=== PATIENT | male | born 1940 | race Caucasian/White ===

== ENCOUNTER → 2016-10-17 | Outpatient (CLI) | payer MEDICARE, OTHER | END | disposition home or self-care (01) | LOC: MW.CHUR 13:00 | PROVIDERS: ATTEND Urology | DX: R35.0 Frequency of micturition (principal); R10.30 Lower abdominal pain, unspecified; Z98.890 Other specified postprocedural states; Z87.19 Personal history of other diseases of the digestive system | CPT/HCPCS: 36415; 81001; 84153; 99203 ==

== ENCOUNTER 2016-11-17 06:36 | Emergency (ER) | payer MEDICARE ==
[2016-11-17 06:47] VITALS: BP 131/67
[2016-11-17] MEDS ORDERED: Ketorolac 60 MG/2 ML SDV IM ONE (07:05)
--- NOTE | 2016-11-17 07:09 | EDM.PDOC ---
ED HPI Trauma - General Chief Complaint: Lower Extremity Injury/Pain Stated Complaint: LEFT KNEE LOCKED UP - History of Present Illness INITIAL COMMENTS - FREE TEXT/NARRATIVE: HISTORY AND PHYSICAL: History of present illness: The patient is a 76-year-old male with a history of A. fib and Coumadin use as well as arthritis who presents with complaints of left knee pain feeling like it 's "locked up". The patient states he had a normal day yesterday but he was painting in his home which required a lot of bending and kneeling but he doesn' t recall a specific injury to the knee. He is a long-standing history of arthritis but it's never been this bad. He doesn't recall twisting the knee or falling on it but he woke with pain and swelling. He feels like he cannot straighten it out. He denies any distal neurosensory changes and has no ankle or foot pain and no proximal hip pain. He has no systemic complaints of fever chills chest pain or shortness of breath Review of systems: As per history of present illness and below otherwise all systems reviewed and negative. Past medical history: As per history of present illness and as reviewed below otherwise noncontributory. Surgical history: As per history of present illness and as reviewed below otherwise noncontributory. Social history: No reported history of drug or alcohol abuse. Family history: As per history of present illness and as reviewed below otherwise noncontributory. Physical exam: General: Well-developed well-nourished male who is nontoxic and speaking clearly and easily. HEENT: Atraumatic, normocephalic, negative for conjunctival pallor or scleral icterus, mucous membranes moist, throat clear, neck supple, nontender, trachea midline. Lungs: Clear to auscultation, breath sounds equal bilaterally, chest nontender. Heart: S1S2, regular rate but irregularly rhythm on my evaluation and no overt murmurs Abdomen: Soft, nondistended, nontender. Negative for masses or hepatosplenomegaly. NABS Pelvis: Stable nontender. Genitourinary: Deferred. Rectal: Deferred. Extremities: Atraumatic except for the left knee where there is a suprapatellar effusion but no palpable bony deformities no warmth. There is diffuse tenderness of the anterior knee and the patient resists extension but is able to do so. There is no distal swelling of the calf or leg and no ankle or foot pain and no proximal thigh or hip pain., negative for cords or calf pain. Neurovascular unremarkable. Neuro: Awake, alert, oriented. Cranial nerves II through XII unremarkable. Cerebellum unremarkable. Motor and sensory unremarkable throughout. Exam nonfocal. Diagnostics: X-ray left knee INR Therapeutics: Toradol RAMÓN and knee immobilizer Patient has his own crutches 0750: Case was discussed with orthopedics dish up person, Dr. Schaffer; in light of the patient's history he advised refraining from doing an arthrocentesis in the ER due to his Coumadin use. He recommended compression dressing, Ramón, knee immobilizer and followup in the clinic. He has seen Dr. Namrata Mayorga in the past and will recommend followup and tramadol for home Impression: Left knee pain with joint effusion and advanced DJD Definitive disposition and diagnosis as appropriate pending reevaluation and review of above. Allergies/ADRs: Allergies Penicillins Allergy (Verified 08/29/16 17:07) Anaphylactic Shock radiographic dye Allergy (Uncoded 08/29/16 17:07) Rash Home Medications: Ambulatory Orders Lisinopril 5 mg PO DAILY 11/23/15 [Confirmed 11/17/16] Nitroglycerin [Nitrostat] 0.4 mg SL ASDIRECTED PRN 11/23/15 [Confirmed 11/17/16] Omeprazole [Prilosec] 40 mg PO DAILY 11/23/15 [Confirmed 11/17/16] atorvaSTATin Calcium [Atorvastatin Calcium] 40 mg PO DAILY 11/23/15 [Confirmed 11/17/16] metFORMIN HCl [Metformin HCl] 500 mg PO BID 11/23/15 [Confirmed 11/17/16] Metoprolol Tartrate [Lopressor] 25 mg PO BID 03/28/16 [Confirmed 11/17/16] Acetaminophen [Tylenol Extra Strength] 500 mg PO DAILY PRN 04/26/16 [Confirmed 11/17/16] Aspirin [Maribel Chewable Aspirin] 81 mg PO DAILY 04/26/16 [Confirmed 11/17/16] Glucosamine/D3/Boswellia Sandi [Osteo Bi-Flex Caplet] 1 each PO DAILY 04/26/16 [ Confirmed 11/17/16] Liraglutide [Victoza] 1.8 mg SUBCUT DAILY 04/26/16 [Confirmed 11/17/16] Warfarin [Coumadin] 7 mg PO DAILY 04/26/16 [Confirmed 11/17/16] Past Medical History HEENT History: Reports: Hard of hearing, Impaired vision Other HEENT History: wears glasses, has upper and lower dentures, wore hearing aides in the past but not currently Cardiovascular History: Reports: Afib, High cholesterol, Hypertension, [place], Stents Respiratory History: Reports: None Gastrointestinal History: Reports: None Genitourinary History: Reports: None Musculoskeletal History: Reports: Arthritis, Fracture Other Musculoskeletal History: hx of fx in back, arthritis in hands and leg,neck Neurological History: Reports: None Psychiatric History: Reports: None Endocrine/Metabolic History: Reports: Diabetes, type II, Obesity/BMI 30+ Hematologic History: Reports: None Immunologic History: Reports: None Oncologic (Cancer) History: Reports: None Dermatologic History: Reports: None - Infectious Disease History Infectious Disease History: Reports: Chicken pox, Measles, Mumps - Past Surgical History Head Surgeries/Procedures: Reports: None Cardiovascular Surgical History: Reports: Coronary artery stent Respiratory Surgical History: Reports: None GI Surgical History: Reports: Appendectomy Male Surgical History: Reports: Vasectomy Endocrine Surgical History: Reports: None Neurological Surgical History: Reports: None Other Musculoskeletal Surgeries/Procedures:: right shoulder pins Oncologic Surgical History: Reports: None Dermatological Surgical History: Reports: None Social & Family History - Family History Family Medical History: Noncontributory - Tobacco Use Smoking Status *Q: Never Smoker Second Hand Smoke Exposure: No - Caffeine Use Caffeine Use: Reports: Coffee - Recreational Drug Use Recreational Drug Use: No Drug Use in Last 12 Months: No Review of Systems - Review of Systems Review Of Systems: ROS reveals no pertinent complaints other than HPI. Trauma Exam - Physical Exam Exam: See Below (See dictation) Course - Vital Signs Last Recorded V/S: Last Vital Signs Temp 37.1 C 11/17/16 06:41 Pulse 97 11/17/16 06:41 Resp 16 11/17/16 06:41 BP 131/67 11/17/16 06:41 Pulse Ox 94 L 11/17/16 06:41 - Orders/Labs/Meds Orders: Active Orders 24 hr Category Date Time Status Knee 3V Lt [CR] Stat Exams 11/17/16 06:51 Taken Labs: Laboratory Tests 11/17/16 Range/Units 07:30 INR 1.42 H (0.86-1.11) Meds: Medications Discontinued Medications Generic Name Dose Route Start Last Admin Trade Name Henna PRN Reason Stop Dose Admin Ketorolac Tromethamine 60 mg 11/17/16 07:05 11/17/16 07:21 Toradol IM 11/17/16 07:06 60 mg ONETIME ONE Administration Departure - Departure Time of Disposition: 07:56 Disposition: Home, Self-Care 01 Condition: good Clinical Impression: Joint effusion of knee DJD (degenerative joint disease) of knee Qualifiers: Osteoarthritis type: unspecified Laterality: left Qualified Code(s): M17.12 - Unilateral primary osteoarthritis, left knee Forms: ED Department Discharge Additional Instructions: The following information is given to patients seen in the emergency department who are being discharged to home. This information is to outline your options for follow-up care. We provide all patients seen in our emergency department with a follow-up referral. The need for follow-up, as well as the timing and circumstances, are variable depending upon the specifics of your emergency department visit. If you don't have a primary care physician on staff, we will provide you with a referral. We always advise you to contact your personal physician following an emergency department visit to inform them of the circumstance of the visit and for follow-up with them and/or the need for any referrals to a consulting specialist. The emergency department will also refer you to a specialist when appropriate. This referral assures that you have the opportunity for followup care with a specialist. All of these measure are taken in an effort to provide you with optimal care, which includes your followup. Under all circumstances we always encourage you to contact your private physician who remains a resource for coordinating your care. When calling for followup care, please make the office aware that this follow-up is from your recent emergency room visit. If for any reason you are refused follow-up, please contact the [facility] emergency department at and ask to speak to the emergency department charge nurse. [address] [place], [place] [id number] [facility]--Orthopedic clinic Professional Building [address] [place] [id number] Use RAMÓN at all times remove at night. His immobilizer and crutches when moving around. Elevate and place ice on the knee. Use [id number] pain medications or the tramadol you have been prescribed. Return to ER as needed and as discussed in please call and followup with our orthopedics Department. - My Orders Last 24 Hours: My Active Orders 11/17/16 06:51 Knee 3V Lt [CR] Stat - Assessment/Plan Last 24 Hours: My Active Orders 11/17/16 06:51 Knee 3V Lt [CR] Stat
--- NOTE | 2016-11-18 16:46 | CR ---
EXAM DATE: 11/17/16 PATIENT'S AGE: 76 Patient: WILFRED HARTMAN Facility: [place], [place] Site . Site : 1940 Study: XRay Knee Left [id number]/26/2017 7:19:32 AM Ordering Physician: Timoteo Bray Final Report: INDICATION: PAIN, HX OF ARTHRITIS, DENIES RECENT TRAUMA INDICATION: Left knee pain. TECHNIQUE: Three view. FINDINGS: Moderate to advanced degenerative change of the 3 compartments of the left knee are identified. No acute fracture is seen. There is a [id number] joint effusion in the suprapatellar space. Vascular calcifications are noted. IMPRESSION: Moderate advanced degenerative change of the left knee. No acute fracture is seen. Joint effusion is noted. Dictated by Rich Bowens MD @ 11/17/2016 7:35:39 AM Dictated by: Rich Bowens MD @ 11/17/2016 07:35:44 (Electronic Signature) Report Signed by Proxy and Original Signed Document filed in the Medical Record. [facility]
== END 2016-11-17 08:12 | disposition home or self-care (01) ==
LOC: MW.ED 06:36
DX: M25.462 Effusion, left knee (principal); M17.12 Unilateral primary osteoarthritis, left knee; I25.2 Old myocardial infarction; I48.91 Unspecified atrial fibrillation; I10 Essential (primary) hypertension; E78.00 Pure hypercholesterolemia, unspecified; E11.9 Type 2 diabetes mellitus without complications; E66.9 Obesity, unspecified; Z68.31 Body mass index [BMI] 31.0-31.9, adult; Z95.5 Presence of coronary angioplasty implant and graft; Z98.52 Vasectomy status; Z90.49 Acquired absence of other specified parts of digestive tract; Z79.82 Long term (current) use of aspirin; Z79.01 Long term (current) use of anticoagulants; Z79.899 Other long term (current) drug therapy; Z88.0 Allergy status to penicillin; Z91.041 Radiographic dye allergy status
CPT/HCPCS: 36415; 73562; 85610; 96372; 99283; J1885

== ENCOUNTER → 2016-11-20 | Outpatient (CLI) | payer MEDICARE | LOC: MW.CHUR 08:00 | DX: S76.211A Strain of adductor muscle, fascia and tendon of right thigh, initial encounter (principal) | CPT/HCPCS: G0463 ==

== ENCOUNTER → 2016-12-03 | Outpatient (CLI) | payer MEDICARE | LOC: MW.CHORTHO 08:00 | PROVIDERS: ATTEND Orthopaedic Surgery | DX: M17.12 Unilateral primary osteoarthritis, left knee (principal) | CPT/HCPCS: 99214 ==

== ENCOUNTER → 2017-01-07 | Outpatient (CLI) | payer MEDICARE | LOC: MW.CHORTHO 08:00 | PROVIDERS: ATTEND Physician Assistant | DX: M17.12 Unilateral primary osteoarthritis, left knee (principal) ==

== ENCOUNTER → 2017-01-15 | Outpatient (CLI) | payer MEDICARE | LOC: MW.CHORTHO 08:00 | PROVIDERS: ATTEND Orthopaedic Surgery | DX: M17.12 Unilateral primary osteoarthritis, left knee (principal) | CPT/HCPCS: G0463 ==

== ENCOUNTER → 2017-01-17 | Outpatient (CLI) | payer MEDICARE ==
--- NOTE | 2017-01-20 10:31 | US ---
EXAMINATION: LEOBARDO HISTORY: Osteoarthritis COMPARISON: None TECHNIQUE: Pressures obtained in the upper and lower extremities bilaterally. FINDINGS/IMPRESSION: The left LEOBARDO is normal and greater than 1. The right LEOBARDO is normal and greater than 1.
== END ==
LOC: MW.US 13:44
PROVIDERS: ATTEND Orthopaedic Surgery
DX: M17.12 Unilateral primary osteoarthritis, left knee (principal)
CPT/HCPCS: 93922; 93922-26

== ENCOUNTER 2017-02-10 07:57 | Inpatient (IN) | payer MEDICARE ==
[2017-02-10] MEDS: Lactated Ringers 1,000 ML IV SCH ×2 (07:35→17:50)
[~2017-02-10 07:57] MED LIST: Acetaminophen 500 MG Tab PO SCH; Clindamycin Phosphate in D5W 900 MG in Premix Bag 1 BAG IV SCH; Famotidine 20 MG/2 ML SDV IVPUSH SCH; Ropivacaine 49.25 ML, EPINEPHrine 0.5 MG, cloNIDine 80 MCG in Sodium Chloride 0.9% 48.4... INJECT ONE; Ropivacaine 49.25 ML, Ketorolac 30 MG, EPINEPHrine 0.5 MG, cloNIDine 80 MCG in Sodium C... INJECT ONE; Scopolamine 1.5 MG Transdermal Patch TRDERM SCH
[2017-02-10] MEDS ORDERED: Lidocaine 2% 5 ML SDV ONE (08:31)
[2017-02-10] MEDS ORDERED: Ondansetron 4 MG/2 ML SDV ONE (08:32)
[2017-02-10] MEDS ORDERED: Propofol 200 MG/20 ML SDV ONE ×2 (08:32→12:00)
[2017-02-10] MEDS ORDERED: fentaNYL 100 MCG/2 ML SDV ONE ×2 (08:32→11:33)
[2017-02-10] MEDS ORDERED: Midazolam 1 MG/ML 2 ML SDV ONE (08:32)
--- NOTE | 2017-02-10 10:00 | PCM.PREANE ---
Preanesthetic Assessment - Anesthesia/Transfusion/Family Hx Anesthesia History: Prior Anesthesia Without Reaction Family History of Anesthesia Reaction: No Transfusion History: No Prior Transfusion(s) - Review of Systems General: No Symptoms Pulmonary: No Symptoms Cardiovascular: No Symptoms Gastrointestinal: No symptoms Neurological: No Symptoms Other: Reports: None - Physical Assessment NPO Status Date: 02/09/17 (except sips of CL with meds this am) O2 Sat by Pulse Oximetry: 98 Respiratory Rate: 16 Vital Signs: Last Vital Signs Temp 36.7 C 02/10/17 08:15 Pulse 79 02/10/17 08:15 Resp 16 02/10/17 08:15 BP 134/78 02/10/17 08:15 Pulse Ox 98 02/10/17 08:15 Height: 1.7 m Weight: 89.811 kg ASA Class: 3 Airway Class: Mallampati = 2 Dentition: Reports: Dentures (full dentures top and bottom) ROM/Head Extension: Full Lungs: Clear to auscultation, Normal respiratory effort Cardiovascular: Regular Rate - Lab Values: Laboratory Last Values INR 1.06 (0.86-1.11) 02/10/17 08:48 Blood Type A POSITIVE 02/10/17 08:48 Antibody Screen NEGATIVE 02/10/17 08:48 Cold Antibody Screen POSITIVE 02/10/17 08:48 - Allergies Allergies/Adverse Reactions: Allergies Allergy/AdvReac Type Severity Reaction Status Date / Time Penicillins Allergy Anaphylactic Verified 08/29/16 17:07 Shock radiographic dye Allergy Rash Uncoded 08/29/16 17:07 - Blood Blood Available: Yes - Anesthesia Plan Pre-Op Medication Ordered: Other (iv tylenol and trans demp scop and po pepcid given in pre op holding per surgeons orders) Beta Masha: Metoprolol (last dose of metopralol was 02/09) Med Last Dose Date: 02/10/17 (took lisinopril this am) - Acknowledgements Anesthesia Type Planned: General Anesthesia, Spinal Pt an Appropriate Candidate for the Planned Anesthesia: Yes Alternatives and Risks of Anesthesia Discussed w Pt/Guardian: Yes Pt/Guardian Understands and Agrees with Anesthesia Plan: Yes Additional Comments: has stent and has had CABG, heart cath in 2017 showed patent vein grafts and patent stent. PreAnesthesia Questionnaire HEENT History: Reports: Hard of Hearing, Impaired Vision Other HEENT History: wears glasses, has upper and lower dentures, wore hearing aides in the past but not currently Cardiovascular History: Reports: Afib, High Cholesterol, Hypertension, [place], Stents Respiratory History: Reports: None Gastrointestinal History: Reports: None Genitourinary History: Reports: None Musculoskeletal History: Reports: Arthritis, Fracture Other Musculoskeletal History: hx of fx in back, arthritis in hands Neurological History: Reports: None Psychiatric History: Reports: None Endocrine/Metabolic History: Reports: Diabetes, Type II, Obesity/BMI 30+ Hematologic History: Reports: None Immunologic History: Reports: None Oncologic (Cancer) History: Reports: None Dermatologic History: Reports: None - Infectious Disease History Infectious Disease History: Reports: Chicken Pox, Measles, Mumps - Past Surgical History Head Surgeries/Procedures: Reports: None HEENT Surgical History: Reports: None, Cataract Surgery Cardiovascular Surgical History: Reports: Coronary Artery Stent Respiratory Surgical History: Reports: None GI Surgical History: Reports: Appendectomy Male Surgical History: Reports: Vasectomy Endocrine Surgical History: Reports: None Neurological Surgical History: Reports: None Musculoskeletal Surgical History: Reports: Shoulder Surgery Other Musculoskeletal Surgeries/Procedures:: right shoulder RTCR Oncologic Surgical History: Reports: None Dermatological Surgical History: Reports: None - SUBSTANCE USE Smoking Status *Q: Never Smoker Tobacco Use Within Last Twelve Months: No Second Hand Smoke Exposure: No Recreational Drug Use History: No - HOME MEDS Home Medications: Home Meds Lisinopril 5 mg PO DAILY 11/23/15 [History] Nitroglycerin [Nitrostat] 0.4 mg SL ASDIRECTED PRN 11/23/15 [History] Omeprazole [Prilosec] 20 mg PO BID PRN 11/23/15 [History] atorvaSTATin Calcium [Atorvastatin Calcium] 40 mg PO DAILY 11/23/15 [History] metFORMIN HCl [Metformin HCl] 500 mg PO BID 11/23/15 [History] Metoprolol Tartrate [Lopressor] 25 mg PO BID 03/28/16 [History] Acetaminophen [Tylenol Extra Strength] 500 mg PO TID PRN 04/26/16 [History] Aspirin [Maribel Chewable Aspirin] 81 mg PO DAILY 04/26/16 [History] Glucosamine/D3/Boswellia Sandi [Osteo Bi-Flex Caplet] 1 each PO DAILY 04/26/16 [ History] Liraglutide [Victoza] 1.8 mg SUBCUT DAILY 04/26/16 [History] Warfarin [Coumadin] 7 mg PO DAILY 04/26/16 [History] - CURRENT (IN HOUSE) MEDS Current Meds: Current Medications Acetaminophen (Tylenol Extra Strength) 1,000 mg PO ONARRIVE [facility] Last Admin: 02/10/17 07:34 Dose: 1,000 mg Famotidine (Pepcid) 40 mg IVPUSH ONARRIVE [facility] Last Admin: 02/10/17 07:34 Dose: 40 mg Clindamycin Phosphate 900 mg/ (Premix) 50 mls @ 100 mls/hr IV ONCALL [facility] Last Admin: 02/10/17 07:35 Dose: 100 mls/hr Lactated Ringer's (Ringers, Lactated) 1,000 mls @ 100 mls/hr IV ASDIRECTED [facility] Last Admin: 02/10/17 07:35 Dose: 100 mls/hr Scopolamine (Transderm-Scop) 1.5 mg TRDERM ONARRIVE [facility] Last Admin: 02/10/17 07:34 Dose: 1.5 mg Tranexamic Acid (Cyklokapron) 4,000 mg IV SEECOMMENT [facility] Discontinued Medications Fentanyl (Sublimaze) Confirm Administered Dose 100 mcg .ROUTE .STK-MED ONE Stop: 02/10/17 08:33 Ropivacaine 49.25 ml/Epinephrine HCl 0.5 mg/Clonidine HCl 80 mcg/ Sodium Chloride 99 mls @ 50 mls/min INJECT ONETIME ONE Stop: 02/10/17 06:01 Ropivacaine 49.25 ml/Ketorolac Tromethamine 30 mg/Epinephrine HCl 0.5 mg/ Clonidine HCl 80 mcg/ Sodium Chloride 100 mls @ 50 mls/min INJECT ONETIME ONE Stop: 02/10/17 06:01 Lidocaine (Xylocaine-Mpf 2%) Confirm Administered Dose 5 ml .ROUTE .STK-MED ONE Stop: 02/10/17 08:32 Midazolam HCl (Versed 1 Mg/Ml) Confirm Administered Dose 2 mg .ROUTE .STK-MED ONE Stop: 02/10/17 08:33 Ondansetron HCl (Zofran) Confirm Administered Dose 4 mg .ROUTE .STK-MED ONE Stop: 02/10/17 08:33 Propofol (Diprivan 20 Ml) Confirm Administered Dose 600 mg .ROUTE .STK-MED ONE Stop: 02/10/17 08:33 Tranexamic Acid (Cyklokapron) Confirm Administered Dose 4,000 mg .ROUTE .[facility]- MED ONE Stop: 02/10/17 07:31
[2017-02-10] MEDS ORDERED: Phenylephrine/Normal Saline 100 MCG/ML 10 ML Syringe ONE (11:45)
[2017-02-10] MEDS ORDERED: diphenhydrAMINE 25 MG Cap PO PRN (12:09)
[2017-02-10] MEDS ORDERED: Bisacodyl 10 MG Supp RECTAL PRN (12:09)
[2017-02-10] MEDS ORDERED: Clindamycin Phosphate in D5W 900 MG in Premix Bag 1 BAG IV SCH ×4 (12:15→19:00)
[2017-02-10] MEDS ORDERED: HYDROmorphone 1 MG/ML Syringe IVPUSH PRN (12:19)
--- NOTE | 2017-02-10 12:26 | PCM.OPNOTE ---
- General Post-Op/Procedure Note Date of Surgery/Procedure: 02/10/17 Operative Procedure(s): L TKA Post-Op Diagnosis: L knee DJD Anesthesia Technique: General LMA, Spinal Primary Surgeon: Namrata Mayorga Records Management Coordinator: Sly Arciniega Records Management Coordinator: Allison Nguyen in mLs: 50 Condition: Good Free Text/Narrative:: tt=61 min #[id number] Intake & Output 02/09/17 02/10/17 02/10/17 22:59 06:59 14:59 Output Total 650 Balance -650
--- NOTE | 2017-02-10 13:07 | PCM.POSTAN ---
POST ANESTHESIA ASSESSMENT - MENTAL STATUS Mental Status: alert, oriented - RESPIRATORY Respiratory Status: respiratory rate WNL, airway patent, O2 saturation stable, supplemental oxygen (nasal canula) - CARDIOVASCULAR CV Status: pulse rate WNL, blood pressure stable - GASTROINTESTINAL GI Status: no symptoms - PAIN Pain Score: 0 - POST OP HYDRATION Hydration Status: adequate & stable
--- NOTE | 2017-02-10 14:23 | PCM.CONS ---
H&P History of Present Illness - General Date of Service: 02/10/17 Admit Problem/Dx: Admission Diagnosis/Problem Admission Diagnosis/Problem Replacement of total knee joint Source of Information: Patient, Old Records History Limitations: Reports: No Limitations - History of Present Illness Initial Comments - Free Text/Narative: This 76 year old male with pmh of CAD with KS and stenting in 2008, afib with anticoagulation Coumadin, DM type 2 presented today for elective L TKA with Dr. Mayorga. Hospitalist service consulted for medical management of comorbidities. He was cleared by Cardiology, Dr Chowdhury, and PCP, Dr. Pandey for surgery. Lexiscan performed with Dr. Chowdhury showed estimated EF of 50% and moderate sized inferior defect, mostly fixed. heart cath completed 01/07/2017 showed no evidence for any significant stenosis in main coronary arteries and he was cleared for surgery. He returned from PACU this afternoon, feeling well. He denies any chest pain or SOB. "I just want to be able to move my legs." Reports feeling coming back slowly. Has no concerns at this time. PCP. Dr. Pandey. - Related Data Allergies/Adverse Reactions: Allergies Allergy/AdvReac Type Severity Reaction Status Date / Time Penicillins Allergy Anaphylactic Verified 08/29/16 17:07 Shock radiographic dye Allergy Rash Uncoded 08/29/16 17:07 Home Medications: Home Meds Lisinopril 5 mg PO DAILY 11/23/15 [History] Nitroglycerin [Nitrostat] 0.4 mg SL ASDIRECTED PRN 11/23/15 [History] Omeprazole [Prilosec] 20 mg PO BID 11/23/15 [History] atorvaSTATin Calcium [Atorvastatin Calcium] 40 mg PO DAILY 11/23/15 [History] metFORMIN HCl [Metformin HCl] 500 mg PO BID 11/23/15 [History] Metoprolol Tartrate [Lopressor] 25 mg PO BID 03/28/16 [History] Acetaminophen [Tylenol Extra Strength] 500 mg PO TID PRN 04/26/16 [History] Aspirin [Maribel Chewable Aspirin] 81 mg PO DAILY 04/26/16 [History] Glucosamine/D3/[place]oswellia Sandi [Osteo Bi-Flex Caplet] 1 each PO DAILY 04/26/16 [ History] Liraglutide [Victoza] 1.8 mg SUBCUT DAILY 04/26/16 [History] Warfarin [Coumadin] 7.5 mg PO DAILY 04/26/16 [History] Past Medical History HEENT History: Reports: Hard of Hearing, Impaired Vision Other HEENT History: wears glasses, has upper and lower dentures Cardiovascular History: Reports: Afib, CAD, High Cholesterol, Hypertension, KS, Stents. Denies: Blood Clots/VTE/DVT Respiratory History: Reports: None. Denies: COPD, PE Gastrointestinal History: Reports: None. Denies: GERD, GI Bleed Genitourinary History: Reports: None. Denies: Acute Renal Failure, Chronic Renal Insuffiency Musculoskeletal History: Reports: Arthritis, Fracture Other Musculoskeletal History: hx of fx in back Neurological History: Reports: None. Denies: CVA, MS, TIA Psychiatric History: Reports: None Endocrine/Metabolic History: Reports: Diabetes, Type II, Obesity/BMI 30+. Denies: Hypothyroidism Hematologic History: Reports: None Immunologic History: Reports: None Oncologic (Cancer) History: Reports: None Dermatologic History: Reports: Cellulitis - Infectious Disease History Infectious Disease History: Reports: Chicken Pox, Measles, Mumps - Past Surgical History Head Surgeries/Procedures: Reports: None HEENT Surgical History: Reports: None, Cataract Surgery Cardiovascular Surgical History: Reports: Coronary Artery Stent Respiratory Surgical History: Reports: None GI Surgical History: Reports: Appendectomy Male Surgical History: Reports: Vasectomy Endocrine Surgical History: Reports: None Neurological Surgical History: Reports: None Musculoskeletal Surgical History: Reports: Shoulder Surgery Other Musculoskeletal Surgeries/Procedures:: right shoulder RTCR Oncologic Surgical History: Reports: None Dermatological Surgical History: Reports: None Social & Family History - Family History Family Medical History: Noncontributory - Tobacco Use Smoking Status *Q: Former Smoker Second Hand Smoke Exposure: No - Caffeine Use Caffeine Use: Reports: Coffee - Alcohol Use Alcohol Use History: No - Recreational Drug Use Recreational Drug Use: No Drug Use in Last 12 Months: No - Living Situation & Occupation Living situation: Reports: Occupation: Employed Social History Comment: Does a lot of caretaking for , who suffered from a CVA a few years ago. H&P Review of Systems - Review of Systems: Review Of Systems: See Below General: Reports: No Symptoms. Denies: Fever, Chills, Malaise, Weakness HEENT: Reports: No Symptoms. Denies: Post Nasal Drip, Sinus Congestion Pulmonary: Reports: No Symptoms. Denies: Shortness of Breath, Wheezing, Cough, Sputum Cardiovascular: Reports: No Symptoms. Denies: Chest Pain, Palpitations, Dyspnea on Exertion, Orthopnea, Edema Gastrointestinal: Reports: No Symptoms. Denies: Abdominal Pain, Black Stool, Bloody Stool, Nausea, Vomiting Genitourinary: Reports: No Symptoms. Denies: Dysuria, Frequency, Burning Musculoskeletal: Reports: No Symptoms Skin: Reports: No Symptoms Psychiatric: Reports: No Symptoms Neurological: Reports: No Symptoms. Denies: Confusion, Dizziness, Headache Hematologic/Lymphatic: Reports: No Symptoms Immunologic: Reports: No Symptoms Exam - Exam Exam: See Below - Vital Signs Vital Signs: Last Vital Signs Temp 97.4 F 02/10/17 13:20 Pulse 75 02/10/17 13:35 Resp 16 02/10/17 13:35 BP 99/60 02/10/17 13:35 Pulse Ox 96 02/10/17 13:35 Weight: 89.811 kg - Exam Quality Assessment: Supplemental Oxygen General: Alert, Oriented, Cooperative HEENT: Conjunctiva Clear, EACs Clear, EOMI, Hearing Intact, Mucosa Moist & [place] , Nares Patent, Posterior Pharynx Clear, Pupils Reactive Neck: Supple, Trachea Midline, 2 Lungs: Clear to Auscultation, Normal Respiratory Effort Cardiovascular: Regular Rate, Regular Rhythm, Normal S1, Normal S2 Abdomen: Normal Bowel Sounds, Soft. No: Distention, Tenderness Extremities: Normal Inspection, Normal Pulses Skin: Warm, Dry, Intact, Incision (C/D/I) Neuro Extensive - Mental Status: Alert, Oriented x3, Normal Mood/Affect, Normal Cognition Neuro Extensive - Motor, Sensory, Reflexes: CN II-XII Intact Psychiatric: Alert, Normal Affect, Normal Mood - Patient Data Lab Results last 24 hrs: Laboratory Results - last 24 hr 02/10/17 02/10/17 02/10/17 Range/Units 08:48 08:48 13:56 WBC 8.05 (4.0-11.0) K/uL RBC 3.62 L (4.50-5.90) M/uL Hgb 10.9 L (13.0-17.0) g/dL Hct 33.1 L (38.0-50.0) % MCV 91.4 (80.0-98.0) fL MCH 30.1 (27.0-32.0) pg MCHC 32.9 (31.0-37.0) g/dL RDW Std Deviation 48.1 (28.0-62.0) fl RDW Coeff of Natalie 14 (11.0-15.0) % Plt Count 224 (150-400) K/uL MPV 9.00 (7.40-12.00) fL Neut % (Auto) 66.7 (48.0-80.0) % Lymph % (Auto) 18.6 (16.0-40.0) % [place] % (Auto) 12.4 (0.0-15.0) % Eos % (Auto) 1.9 (0.0-7.0) % Baso % (Auto) 0.4 (0.0-1.5) % Neut # (Auto) 5.4 (1.4-5.7) K/uL Lymph # (Auto) 1.5 (0.6-2.4) K/uL [place] # (Auto) 1.0 H (0.0-0.8) K/uL Eos # (Auto) 0.2 (0.0-0.7) K/uL Baso # (Auto) 0.0 (0.0-0.1) K/uL Nucleated RBC % 0.0 /100WBC Nucleated RBCs # 0 K/uL INR 1.06 (0.86-1.11) Blood Type A POSITIVE Antibody Screen NEGATIVE Cold Antibody Screen POSITIVE Result Diagrams: 02/10/17 13:56 02/10/17 13:56 Consult PN Assessment/Plan Procedures: Procedures ASSAY OF CREATININE (04/18/16) ASSAY OF LACTIC ACID (04/26/16) ASSAY OF MAGNESIUM (03/28/16) ASSAY OF PSA TOTAL (10/17/16) ASSAY OF TROPONIN QUANT (07/16/16) ASSAY OF UREA NITROGEN (04/18/16) ASSAY OF VANCOMYCIN (04/26/16) BLOOD CULTURE FOR BACTERIA (04/26/16) C-REACTIVE PROTEIN (04/26/16) CHEST X-RAY 1 VIEW FRONTAL (07/16/16) COMPLETE CBC W/AUTO DIFF WBC (07/16/16) COMPREHEN METABOLIC PANEL (07/16/16) CREATINE MB FRACTION (03/28/16) CT HEAD/BRAIN W/O DYE (07/16/16) CT NECK SPINE W/O DYE (07/16/16) CT THORAX W/DYE (04/16/16) CULTR BACTERIA EXCEPT BLOOD (04/26/16) CULTURE AEROBIC IDENTIFY (04/26/16) CULTURE OTHR SPECIMN AEROBIC (04/26/16) DRAIN/INJ JOINT/BURSA W/O US (11/18/16) ELECTROCARDIOGRAM TRACING (07/16/16) EMERGENCY DEPT VISIT (11/17/16) EMERGENCY DEPT VISIT (07/16/16) EMERGENCY DEPT VISIT (04/26/16) EMERGENCY DEPT VISIT (03/28/16) GLUCOSE BLOOD TEST (04/26/16) IMMUNIZATION ADMIN (04/26/16) METABOLIC PANEL TOTAL CA (04/26/16) MICROBE SUSCEPTIBLE HEAVEN (04/26/16) N BLOCK INJ ILIO-ING/HYPOGI (09/03/16) OFFICE/OUTPATIENT VISIT EST (04/10/16) OFFICE/OUTPATIENT VISIT NEW (10/17/16) OFFICE/OUTPATIENT VISIT NEW (10/19/15) PROTHROMBIN TIME (11/17/16) PRP I/THERESA INIT REDUC >5 YR (11/27/15) RBC SED RATE AUTOMATED (04/26/16) ROUTINE VENIPUNCTURE (11/17/16) SMEAR GRAM STAIN (04/26/16) TDAP VACCINE 7 YRS/> IM (04/26/16) THER/PROPH/DIAG INJ IV PUSH (07/16/16) THER/PROPH/DIAG INJ SC/IM (11/17/16) THER/PROPH/DIAG IV INF INIT (04/26/16) TX/PRO/DX INJ NEW DRUG ADDON (07/16/16) UPR/L XTREMITY ART 2 LEVELS (01/17/17) URINALYSIS AUTO W/SCOPE (10/17/16) US EXAM SCROTUM (08/29/16) VASCULAR STUDY (08/29/16) X-RAY EXAM KNEE 4 OR MORE (11/18/16) X-RAY EXAM OF ELBOW (04/26/16) X-RAY EXAM OF KNEE 3 (11/17/16) X-RAY EXAM OF SHOULDER (07/16/16) (1) S/P total knee arthroplasty SNOMED Code(s): 6127282998462, 715321617, 1671749711822 Code(s): Z96.659 - PRESENCE OF UNSPECIFIED ARTIFICIAL KNEE JOINT Current Visit: Yes Qualifiers: Laterality: left Qualified Code(s): Z96.652 - Presence of left artificial knee joint (2) A-fib SNOMED Code(s): 34333915 Code(s): I48.91 - UNSPECIFIED ATRIAL FIBRILLATION Current Visit: No Qualifiers: Atrial fibrillation type: chronic Qualified Code(s): I48.2 - Chronic atrial fibrillation (3) CAD (coronary artery disease) SNOMED Code(s): 24274021 Code(s): I25.10 - ATHSCL HEART DISEASE OF [place] CORONARY ARTERY W/O ANG PCTRS Current Visit: No Qualifiers: Coronary Disease-Associated Artery/Lesion type: [place] artery [place] vs. transplanted heart: ramona heart Associated angina: without angina Qualified Code(s): I25.10 - Atherosclerotic heart disease of [place] coronary artery without angina pectoris (4) Chronic anticoagulation SNOMED Code(s): 594059976 Code(s): Z79.01 - SKIDDER (CURRENT) USE OF ANTICOAGULANTS Current Visit: No (5) Diabetes type 2, controlled SNOMED Code(s): 31124550 Code(s): E11.9 - TYPE 2 DIABETES MELLITUS WITHOUT COMPLICATIONS Current Visit: No Qualifiers: Diabetes mellitus complication status: without complication Diabetes mellitus penitentiary insulin use: without long term care pharmacist use Qualified Code(s): E11.9 - Type 2 diabetes mellitus without complications Problem List Initiated/Reviewed/Updated: Yes My Orders last 24 hours: My Active Orders 02/10/17 13:43 COMPREHENSIVE METABOLIC PN,CMP [CHEM] Routine MG [MAGNESIUM] [CHEM] Routine 02/10/17 13:47 Blood Glucose Check, Bedside [RC] TIDAC 02/10/17 17:00 Insulin Aspart [NovoLOG] See Protocol SUBCUT TIDAC 02/10/17 21:00 Metoprolol Tartrate [Lopressor] 25 mg PO BID 02/11/17 05:00 BASIC METABOLIC PANEL,BMP [CHEM] DAILY CBC WITH AUTO DIFF [HEME] DAILY INR,PT,PROTHROMBIN TIME [COAG] DAILY MAGNESIUM [CHEM] DAILY 02/11/17 09:00 Aspirin 81 mg PO DAILY Liraglutide 1.8 mg SUBCUT DAILY Lisinopril [Prinivil] 5 mg PO DAILY atorvaSTATin [Lipitor] 40 mg PO DAILY 02/11/17 14:00 Warfarin [Coumadin] 7 mg PO DAILY@1400 02/12/17 05:00 BASIC METABOLIC PANEL,BMP [CHEM] DAILY CBC WITH AUTO DIFF [HEME] DAILY MAGNESIUM [CHEM] DAILY 02/13/17 05:00 BASIC METABOLIC PANEL,BMP [CHEM] DAILY CBC WITH AUTO DIFF [HEME] DAILY MAGNESIUM [CHEM] DAILY Plan: This 76 year old male admitted with L TKA, Hospitalist service consulted for medical management. 1. S/P L TKA: Doing well, orders per Ortho. 2. Afib: Continue Metoprolol. Restart Coumadin tomorrow. Monitor INR and electrolytes. Hypomagnesemia noted, replaced with 4 gm IV this afternoon. 3. DM type 2: Hold Metformin. Novolog SSI TIDAC. Continue Victoza. 4. CAD: Continue ASA, Atorvastatin, and Lisinopril. VTE prophylaxis: Do recommended restarting Coumadin in am or when deemed appropriate per Ortho.
[2017-02-10 14:28] LABS: CHLORIDE,CL 107 mmol/L (98-110); SODIUM,NA 138 mmol/L (136-146)
[2017-02-10] MEDS ORDERED: Magnesium Sulfate/Water 4 GM in Premix Bag 1 BAG IV ONE (14:39)
[2017-02-10] MEDS: Acetaminophen 500 MG Tab PO SCH ×2 (15:47→21:46)
[2017-02-10] MEDS: Insulin Aspart 100 Units/ML 3 ML Pen SUBCUT SCH (16:57)
--- NOTE | 2017-02-10 17:01 | CR ---
EXAMINATION: Left knee HISTORY: Surgery COMPARISON: 11/18/2016 TECHNIQUE: 2 views FINDINGS/IMPRESSION: Left total knee hardware is demonstrated in good position and alignment. Postop erative soft tissue changes noted.
[2017-02-10] MEDS: oxyCODONE 5 MG Tab PO PRN (17:53)
[2017-02-10] MEDS: Clindamycin Phosphate in D5W 900 MG in Premix Bag 1 BAG IV SCH ×2 (18:47)
--- NOTE | 2017-02-10 21:02 | OR ---
SURGEON: Namrata Mayorga MD DATE OF PROCEDURE: 02/10/2017 PREOPERATIVE DIAGNOSIS: Degenerative joint disease, left knee, tricompartmental. POSTOPERATIVE DIAGNOSIS: Degenerative joint disease, left knee, tricompartmental. PROCEDURE: Left total knee arthroplasty. ASSISTING: Sly Arciniega PA-C and Allison Nguyen PA-C. ANESTHESIA: Spinal and general. ESTIMATED BLOOD LOSS: 50 mL. TOURNIQUET TIME: 61 minutes. COMPLICATIONS: None. DVT PROPHYLAXIS: PAS boot and MAYTE hose to the nonoperative leg. IMPLANTS USED: Conchis Persona femoral component size 9 (LPS), size H tibia, a 10 degree all polyethylene articular surface, and 35 mm all-polyethylene patella. INTRAOPERATIVE FINDINGS: Showed severe tricompartmental degenerative changes with osteophyte formation. He had significant posterior wear along the medial and lateral aspect of the tibial plateau. A 1 g of tranexamic acid was given IV prior to inflation of the tourniquet and additional gram was given IV upon deflation of the tourniquet. We did apply 1 g of TXA topically as the cement was allowed to harden. BRIEF HISTORY: Neri is a 76-year-old male with multiple medical comorbidities, who has had complaint of progressive left knee pain. His x-rays did show severe tricompartmental degenerative changes. He had failed conservative treatment. Due to his lack of response to conservative treatment, I did recommend surgical intervention. The risks and goals of procedure were discussed with the patient and were documented preoperatively. He was seen by both his primary care provider and Cardiology prior to surgical intervention. He was medically cleared for surgery. DESCRIPTION OF PROCEDURE: The patient was properly identified and brought to the operating room. The patient was then transferred from the operating room cart and placed on the operating table in a supine position. Anesthesia was administered by the anesthesia staff. After adequate anesthesia was obtained, a well-padded tourniquet was applied to the surgical lower extremity. The lower extremity was then prepped in standard fashion using ChloraPrep solution. It was then sterilely draped. A time-out was performed to ensure correct site and procedure. Preoperative antibiotics were given. The surgical site had been marked preoperatively. An Esmarch was used to exsanguinate the right lower extremity and the tourniquet was inflated. An incision was made over the anterior aspect of the knee. The subcutaneous tissues were dissected down to the level of the fascia. A medial parapatellar approach to the knee was made. A portion of the infrapatellar fat pad was then excised. The distal femur was then exposed. The step reamer was then used to gain access to the intramedullary canal. This was placed in 6 degrees of valgus. Pins were placed. The distal femoral cutting block was placed and the distal femoral cut was made. Instrumentation was then removed. The femur was then sized. Both Whitesides' line and the epicondylar axis were then marked with electrocautery. The 4-in-1 cutting block of appropriate size was placed. This was placed in a slightly externally rotated position, which corresponded well with the previously drawn lines. The cutting guide was then pinned into position. An Ahsan wing guide was used to check the depth of resection of our anterior condylar cut and it was felt that no notching would occur. The anterior condylar cut was then made followed by the posterior condylar cut. Both the posterior chamfer and anterior chamfer cuts were then made. The cutting block was then removed along with the excess bony remnants. We then turned our attention to the tibia. The anterior cruciate ligament and posterior cruciate ligament were released and a posterior cruciate ligament retractor was placed to allow the tibia to be pulled anteriorly. The tibial extramedullary guide was then positioned. We chose to take approximately 2mm off of the medial side. The proximal tibial guide was then placed and the pins were placed. The proximal tibia cutting guide was then placed and screwed into position. The proximal tibial resection was then made with care being taken to protect the patellar tendon. The bony resection was then removed. The remainder of the medial and lateral meniscus were then excised. Care was taken to protect the popliteus tendon. The tibia was then sized to the appropriate size. The distal femur was then elevated. The posterior capsule was stripped off the distal femur both medially and laterally. The posterior capsule along with the medial and lateral gutters were then injected with a standard mixture consisting of clonidine, epinephrine, Toradol, and Ropivacaine, unless any allergies were found preoperatively. The femoral component was then placed onto the distal femur in a slightly lateral position. This fit the femur well. A box cut was then made without difficulty. This was then removed. The tibial trial along with the polyethylene liner was then placed. The knee came easily into full extension and was stable to varus and valgus stressing both in full extension and flexion. Any additional releases were performed at this time. We then returned our attention to the patella. The patella was everted and towel clamps were used to hold the patella in position. It was resected to a 15 millimeter thickness. It was then sized to the appropriate size. It was prepared in the usual fashion after placing the predetermined size clamps. This was placed in a slightly superior and medial position. The clamp was then removed. The patellar trial button was placed. The knee was taken through a range of motion using the no-touch technique. The patella tracked centrally. A drop shelby was then placed to check alignment. All instruments were then removed from the knee. The tibial sizer was then placed on the tibia. The tibia was prepared in the usual fashion using the reamer and broach. This was then removed. All bony surfaces were copiously irrigated with Pulsavac solution. They were then suctioned dry. Cement was prepared on the back table in the usual manner. Once it was prepared, the bone ends were again suctioned dry. The tibia was cemented into place first. This was malleted into position. Excess cement was then cleared. The femur was then placed in a similar manner. We placed the polyethylene trial into place and the knee was brought into full extension. An axial load was placed while keeping the knee in full extension. The patella button was also cemented into position and the clamp was used to hold this in place as the cement was allowed to cure. After we had adequate curing of the cement, the knee was again taken through a range of motion. The size of the polyethylene was then determined. The polyethylene trial was then removed. The tibial tray was suctioned to make sure there was no remaining soft tissue or cement. Excess cement was cleared from around the edges of the prosthesis as well. The tourniquet was then deflated. We were able to observe for any excess bleeding and none was noted. Electrocautery was used to maintain hemostasis. The retractors were again placed and the predetermined polyethylene was then placed. This was locked into position without difficulty. The knee was again taken through a range of motion with no change from the prior exam. The wound was then copiously irrigated with Pulsavac solution. The fascial layer was closed with Number One Vicryl. The subcutaneous tissues were closed with 2-0 Vicryl. The skin was closed with lisbeth. Xeroform gauze was placed over the wound and a bulky dressing was applied. The patient was then awakened from anesthesia and transferred back to the operating room cart. They were brought to the recovery room in stable condition. All needle and sponge counts were correct. MIGUELINA BRIDGES /[id number]
[2017-02-10] MEDS: Docusate Sodium 100 MG Cap PO SCH (21:47)
[2017-02-10] MEDS: Lisinopril 5 MG Tab PO SCH (21:52)
[2017-02-10] MEDS: Metoprolol Tartrate 25 MG Tab PO SCH (21:52)
[2017-02-11] MEDS: oxyCODONE 5 MG Tab PO PRN ×4 (00:08→12:29)
[2017-02-11] MEDS: Lactated Ringers 1,000 ML IV SCH (02:55)
[2017-02-11] MEDS: Clindamycin Phosphate in D5W 900 MG in Premix Bag 1 BAG IV SCH ×2 (02:56)
[2017-02-11] MEDS: Acetaminophen 500 MG Tab PO SCH ×4 (02:59→22:59)
[2017-02-11 05:24] LABS: CHLORIDE,CL 102 mmol/L (98-110); SODIUM,NA 131 mmol/L (136-146)
[2017-02-11] MEDS: Insulin Aspart 100 Units/ML 3 ML Pen SUBCUT SCH ×3 (07:14→17:14)
[2017-02-11] MEDS ORDERED: Calcium Carbonate 500 MG Tab.Chew PO ONE (07:49)
--- NOTE | 2017-02-11 07:49 | PCM.CONSN ---
- General Info Date of Service: 02/11/17 Admission Dx/Problem (Free Text): Admission Diagnosis/Problem Admission Diagnosis/Problem Replacement of total knee joint Subjective Update: Doing well this morning. Has no chest pain or SOB. Having some knee pain, but this is tolerable. Tolerating diet well,and is passing gas. Functional Status: Reports: pain controlled, tolerating diet, ambulating - Review of Systems General: Reports: No Symptoms. Denies: Fever Pulmonary: Reports: no symptoms. Denies: shortness of breath, cough, sputum Cardiovascular: Reports: No Symptoms. Denies: Chest Pain, Palpitations, Edema Gastrointestinal: Reports: No symptoms, Flatus. Denies: Abdominal pain, Nausea , Vomiting Musculoskeletal: Reports: no symptoms Skin: Reports: no symptoms Neurological: Reports: No Symptoms Psychiatric: Reports: no symptoms - Patient Data Vitals - most recent: Last Vital Signs Temp 98.7 F 02/11/17 04:00 Pulse 91 02/11/17 04:00 Resp 20 02/11/17 04:00 BP 94/50 L 02/11/17 04:00 Pulse Ox 94 L 02/11/17 04:00 Weight - most recent: 89.811 kg I&O - last 24 hours: Intake & Output 02/10/17 02/11/17 02/11/17 22:59 06:59 14:59 Intake Total 271 4250 Output Total 180 1675 Balance 91 2575 Lab Results last 24 hrs: Laboratory Results - last 24 hr 02/10/17 02/10/17 02/10/17 Range/Units 08:48 08:48 13:56 WBC 8.05 (4.0-11.0) K/uL RBC 3.62 L (4.50-5.90) M/uL Hgb 10.9 L (13.0-17.0) g/dL Hct 33.1 L (38.0-50.0) % MCV 91.4 (80.0-98.0) fL MCH 30.1 (27.0-32.0) pg MCHC 32.9 (31.0-37.0) g/dL RDW Std Deviation 48.1 (28.0-62.0) fl RDW Coeff of Natalie 14 (11.0-15.0) % Plt Count 224 (150-400) K/uL MPV 9.00 (7.40-12.00) fL Neut % (Auto) 66.7 (48.0-80.0) % Lymph % (Auto) 18.6 (16.0-40.0) % [place] % (Auto) 12.4 (0.0-15.0) % Eos % (Auto) 1.9 (0.0-7.0) % Baso % (Auto) 0.4 (0.0-1.5) % Neut # (Auto) 5.4 (1.4-5.7) K/uL Lymph # (Auto) 1.5 (0.6-2.4) K/uL [place] # (Auto) 1.0 H (0.0-0.8) K/uL Eos # (Auto) 0.2 (0.0-0.7) K/uL Baso # (Auto) 0.0 (0.0-0.1) K/uL Nucleated RBC % 0.0 /100WBC Nucleated RBCs # 0 K/uL INR 1.06 (0.86-1.11) Sodium (136-146) mmol/L Potassium (3.5-5.1) mmol/L Chloride (98-110) mmol/L Carbon Dioxide (21-31) mmol/L BUN (6.0-23.0) mg/dL Creatinine (0.6-1.5) mg/dL Est Cr Clr Drug Dosing mL/min Estimated GFR (MDRD) ml/min Glucose (60-110) mg/dL POC Glucose (60-110) mg/dL Calcium (8.8-10.8) mg/dL Magnesium (1.5-2.3) mEq/L Total Bilirubin (0.1-1.5) mg/dL AST (5-40) IU/L ALT (8-54) IU/L Alkaline Phosphatase (40-150) Total Protein (6.0-8.0) g/dL Albumin (3.4-4.8) g/dL Globulin (2.0-3.5) g/dL Albumin/Globulin Ratio (1.3-2.8) Blood Type A POSITIVE Antibody Screen NEGATIVE Cold Antibody Screen POSITIVE 02/10/17 02/10/17 02/11/17 Range/Units 13:56 16:08 04:24 WBC 12.07 H (4.0-11.0) K/uL RBC 3.10 L (4.50-5.90) M/uL Hgb 9.3 L (13.0-17.0) g/dL Hct 28.1 L (38.0-50.0) % MCV 90.6 (80.0-98.0) fL MCH 30.0 (27.0-32.0) pg MCHC 33.1 (31.0-37.0) g/dL RDW Std Deviation 46.3 (28.0-62.0) fl RDW Coeff of Natalie 14 (11.0-15.0) % Plt Count 188 (150-400) K/uL MPV 9.10 (7.40-12.00) fL Neut % (Auto) 80.4 H (48.0-80.0) % Lymph % (Auto) 9.6 L (16.0-40.0) % [place] % (Auto) 8.9 (0.0-15.0) % Eos % (Auto) 0.9 (0.0-7.0) % Baso % (Auto) 0.2 (0.0-1.5) % Neut # (Auto) 9.7 H (1.4-5.7) K/uL Lymph # (Auto) 1.2 (0.6-2.4) K/uL [place] # (Auto) 1.1 H (0.0-0.8) K/uL Eos # (Auto) 0.1 (0.0-0.7) K/uL Baso # (Auto) 0.0 (0.0-0.1) K/uL Nucleated RBC % 0.0 /100WBC Nucleated RBCs # 0 K/uL INR (0.86-1.11) Sodium 138 (136-146) mmol/L Potassium 4.4 (3.5-5.1) mmol/L Chloride 107 (98-110) mmol/L Carbon Dioxide 21 (21-31) mmol/L BUN 11 (6.0-23.0) mg/dL Creatinine 0.8 (0.6-1.5) mg/dL Est Cr Clr Drug Dosing 74.59 mL/min Estimated GFR (MDRD) > 60.0 ml/min Glucose 120 H (60-110) mg/dL POC Glucose 176 H (60-110) mg/dL Calcium 8.8 (8.8-10.8) mg/dL Magnesium 1.2 L (1.5-2.3) mEq/L Total Bilirubin 1.1 (0.1-1.5) mg/dL AST 14 (5-40) IU/L ALT 14 (8-54) IU/L Alkaline Phosphatase 71 (40-150) Total Protein 5.8 L (6.0-8.0) g/dL Albumin 3.4 (3.4-4.8) g/dL Globulin 2.4 (2.0-3.5) g/dL Albumin/Globulin Ratio 1.4 (1.3-2.8) Blood Type Antibody Screen Cold Antibody Screen 02/11/17 02/11/17 02/11/17 Range/Units 04:24 04:24 06:47 WBC (4.0-11.0) K/uL RBC (4.50-5.90) M/uL Hgb (13.0-17.0) g/dL Hct (38.0-50.0) % MCV (80.0-98.0) fL MCH (27.0-32.0) pg MCHC (31.0-37.0) g/dL RDW Std Deviation (28.0-62.0) fl RDW Coeff of Natalie (11.0-15.0) % Plt Count (150-400) K/uL MPV (7.40-12.00) fL Neut % (Auto) (48.0-80.0) % Lymph % (Auto) (16.0-40.0) % [place] % (Auto) (0.0-15.0) % Eos % (Auto) (0.0-7.0) % Baso % (Auto) (0.0-1.5) % Neut # (Auto) (1.4-5.7) K/uL Lymph # (Auto) (0.6-2.4) K/uL [place] # (Auto) (0.0-0.8) K/uL Eos # (Auto) (0.0-0.7) K/uL Baso # (Auto) (0.0-0.1) K/uL Nucleated RBC % /100WBC Nucleated RBCs # K/uL INR 1.03 (0.86-1.11) Sodium 131 L (136-146) mmol/L Potassium 4.4 (3.5-5.1) mmol/L Chloride 102 (98-110) mmol/L Carbon Dioxide 21 (21-31) mmol/L BUN 14 (6.0-23.0) mg/dL Creatinine 0.7 (0.6-1.5) mg/dL Est Cr Clr Drug Dosing 85.25 mL/min Estimated GFR (MDRD) > 60.0 ml/min Glucose 142 H (60-110) mg/dL POC Glucose 123 H (60-110) mg/dL Calcium 7.9 L (8.8-10.8) mg/dL Magnesium 1.6 (1.5-2.3) mEq/L Total Bilirubin (0.1-1.5) mg/dL AST (5-40) IU/L ALT (8-54) IU/L Alkaline Phosphatase (40-150) Total Protein (6.0-8.0) g/dL Albumin (3.4-4.8) g/dL Globulin (2.0-3.5) g/dL Albumin/Globulin Ratio (1.3-2.8) Blood Type Antibody Screen Cold Antibody Screen Med Orders - Current: Current Medications Acetaminophen (Tylenol Extra Strength) 1,000 mg PO Q6H [facility] Last Admin: 02/11/17 02:59 Dose: 1,000 mg Aspirin (Aspirin) 81 mg PO DAILY [facility] Atorvastatin Calcium (Lipitor) 40 mg PO DAILY [facility] Bisacodyl (Dulcolax) 10 mg RECTAL DAILY PRN PRN Reason: Constipation Diphenhydramine HCl (Benadryl) 25 - 50 mg PO Q6H PRN PRN Reason: Itching Docusate Sodium (Colace) 100 mg PO BID [facility] Last Admin: 02/10/17 21:47 Dose: 100 mg Enoxaparin Sodium (Lovenox) 40 mg SUBCUT DAILY [facility] Hydromorphone HCl (Dilaudid) 0.5 - 1 mg IVPUSH Q3H PRN PRN Reason: Pain Magnesium Sulfate 2 gm/ Premix 50 mls @ 50 mls/hr IV ONETIME ONE Stop: 02/11/17 08:47 Insulin Aspart (Novolog) 0 unit SUBCUT TIDAC [facility] PRN Reason: Protocol Last Admin: 02/11/17 07:14 Dose: Not Given Lisinopril (Prinivil) 5 mg PO BEDTIME [facility] Last Admin: 02/10/17 21:52 Dose: Not Given Metoprolol Tartrate (Lopressor) 25 mg PO BID [facility] Last Admin: 02/10/17 21:52 Dose: Not Given Ondansetron HCl (Zofran) 4 mg IV Q6HR PRN PRN Reason: NAUSEA/VOMITING Oxycodone HCl (Oxycodone) 5 - 10 mg PO Q4H PRN PRN Reason: Pain Last Admin: 02/11/17 04:40 Dose: 10 mg Liraglutide 1.8 Mg 1.8 each SUBCUT DAILY [facility] Scopolamine (Transderm-Scop) 1.5 mg TRDERM ONARRIVE [facility] Last Admin: 02/10/17 07:34 Dose: 1.5 mg Warfarin Sodium (Coumadin) 7.5 mg PO DAILY@1400 [facility] Discontinued Medications Acetaminophen (Tylenol Extra Strength) 1,000 mg PO ONARRIVE [facility] Last Admin: 02/10/17 07:34 Dose: 1,000 mg Famotidine (Pepcid) 40 mg IVPUSH ONARRIVE [facility] Last Admin: 02/10/17 07:34 Dose: 40 mg Fentanyl (Sublimaze) Confirm Administered Dose 100 mcg .ROUTE .STK-MED ONE Stop: 02/10/17 08:33 Fentanyl (Sublimaze) Confirm Administered Dose 100 mcg .ROUTE .STK-MED ONE Stop: 02/10/17 11:34 Ropivacaine 49.25 ml/Epinephrine HCl 0.5 mg/Clonidine HCl 80 mcg/ Sodium Chloride 99 mls @ 50 mls/min INJECT ONETIME ONE Stop: 02/10/17 06:01 Clindamycin Phosphate 900 mg/ (Premix) 50 mls @ 100 mls/hr IV ONCALL [facility] Last Admin: 02/10/17 07:35 Dose: 100 mls/hr Ropivacaine 49.25 ml/Ketorolac Tromethamine 30 mg/Epinephrine HCl 0.5 mg/ Clonidine HCl 80 mcg/ Sodium Chloride 100 mls @ 50 mls/min INJECT ONETIME ONE Stop: 02/10/17 06:01 Last Admin: 02/10/17 20:07 Dose: Not Given Lactated Ringer's (Ringers, Lactated) 1,000 mls @ 100 mls/hr IV ASDIRECTED [facility] Last Admin: 02/11/17 02:55 Dose: 100 mls/hr Clindamycin Phosphate 900 mg/ (Premix) 50 mls @ 100 mls/hr IV Q8H [facility] Clindamycin Phosphate 900 mg/ (Premix) 50 mls @ 100 mls/hr IV ONCALL [facility] Stop: 02/11/17 19:29 Clindamycin Phosphate 900 mg/ (Premix) 50 mls @ 100 mls/hr IV Q8H [facility] Stop: 02/11/17 03:29 Last Admin: 02/11/17 02:56 Dose: 100 mls/hr Magnesium Sulfate 4 gm/ Premix 100 mls @ 50 mls/hr IV ONETIME ONE Stop: 02/10/17 16:38 Last Admin: 02/10/17 14:59 Dose: 50 mls/hr Lidocaine (Xylocaine-Mpf 2%) Confirm Administered Dose 5 ml .ROUTE .STK-MED ONE Stop: 02/10/17 08:32 Lisinopril (Prinivil) 5 mg PO DAILY [facility] Midazolam HCl (Versed 1 Mg/Ml) Confirm Administered Dose 2 mg .ROUTE .STK-MED ONE Stop: 02/10/17 08:33 Ondansetron HCl (Zofran) Confirm Administered Dose 4 mg .ROUTE .STK-MED ONE Stop: 02/10/17 08:33 Phenylephrine HCl (Phenylephrine In Ns 100 Mcg/Ml) Confirm Administered Dose 1 mg .ROUTE .STK-MED ONE Stop: 02/10/17 11:46 Propofol (Diprivan 20 Ml) Confirm Administered Dose 600 mg .ROUTE .STK-MED ONE Stop: 02/10/17 08:33 Propofol (Diprivan 20 Ml) Confirm Administered Dose 200 mg .ROUTE .STK-MED ONE Stop: 02/10/17 12:01 Tranexamic Acid (Cyklokapron) 4,000 mg IV SEECOMMENT [facility] Tranexamic Acid (Cyklokapron) Confirm Administered Dose 4,000 mg .ROUTE .STK- MED ONE Stop: 02/10/17 07:31 - Exam General: alert, oriented, cooperative Lungs: Clear to auscultation, Normal respiratory effort Cardiovascular: Regular Rate, Regular Rhythm Abdomen: bowel sounds present, soft, no tenderness, no distension Extremities: no edema, normal pulses Consult PN Assessment/Plan Procedures: Procedures ASSAY OF CREATININE (04/18/16) ASSAY OF LACTIC ACID (04/26/16) ASSAY OF MAGNESIUM (03/28/16) ASSAY OF PSA TOTAL (10/17/16) ASSAY OF TROPONIN QUANT (07/16/16) ASSAY OF UREA NITROGEN (04/18/16) ASSAY OF VANCOMYCIN (04/26/16) BLOOD CULTURE FOR BACTERIA (04/26/16) C-REACTIVE PROTEIN (04/26/16) CHEST X-RAY 1 VIEW FRONTAL (07/16/16) COMPLETE CBC W/AUTO DIFF WBC (07/16/16) COMPREHEN METABOLIC PANEL (07/16/16) CREATINE MB FRACTION (03/28/16) CT HEAD/BRAIN W/O DYE (07/16/16) CT NECK SPINE W/O DYE (07/16/16) CT THORAX W/DYE (04/16/16) CULTR BACTERIA EXCEPT BLOOD (04/26/16) CULTURE AEROBIC IDENTIFY (04/26/16) CULTURE OTHR SPECIMN AEROBIC (04/26/16) DRAIN/INJ JOINT/BURSA W/O US (11/18/16) ELECTROCARDIOGRAM TRACING (07/16/16) EMERGENCY DEPT VISIT (11/17/16) EMERGENCY DEPT VISIT (07/16/16) EMERGENCY DEPT VISIT (04/26/16) EMERGENCY DEPT VISIT (03/28/16) GLUCOSE BLOOD TEST (04/26/16) IMMUNIZATION ADMIN (04/26/16) METABOLIC PANEL TOTAL CA (04/26/16) MICROBE SUSCEPTIBLE HEAVEN (04/26/16) N BLOCK INJ ILIO-ING/HYPOGI (09/03/16) OFFICE/OUTPATIENT VISIT EST (04/10/16) OFFICE/OUTPATIENT VISIT NEW (10/17/16) OFFICE/OUTPATIENT VISIT NEW (10/19/15) PROTHROMBIN TIME (11/17/16) PRP I/THERESA INIT REDUC >5 YR (11/27/15) RBC SED RATE AUTOMATED (04/26/16) ROUTINE VENIPUNCTURE (11/17/16) SMEAR GRAM STAIN (04/26/16) TDAP VACCINE 7 YRS/> IM (04/26/16) THER/PROPH/DIAG INJ IV PUSH (07/16/16) THER/PROPH/DIAG INJ SC/IM (11/17/16) THER/PROPH/DIAG IV INF INIT (04/26/16) TX/PRO/DX INJ NEW DRUG ADDON (07/16/16) UPR/L XTREMITY ART 2 LEVELS (01/17/17) URINALYSIS AUTO W/SCOPE (10/17/16) US EXAM SCROTUM (08/29/16) VASCULAR STUDY (08/29/16) X-RAY EXAM KNEE 4 OR MORE (11/18/16) X-RAY EXAM OF ELBOW (04/26/16) X-RAY EXAM OF KNEE 3 (11/17/16) X-RAY EXAM OF SHOULDER (07/16/16) (1) S/P total knee arthroplasty SNOMED Code(s): 1330929177608, 142914992, 2030990092411 Code(s): Z96.659 - PRESENCE OF UNSPECIFIED ARTIFICIAL KNEE JOINT Current Visit: Yes Qualifiers: Laterality: left Qualified Code(s): Z96.652 - Presence of left artificial knee joint (2) A-fib SNOMED Code(s): 48383332 Code(s): I48.91 - UNSPECIFIED ATRIAL FIBRILLATION Current Visit: No Qualifiers: Atrial fibrillation type: chronic Qualified Code(s): I48.2 - Chronic atrial fibrillation (3) CAD (coronary artery disease) SNOMED Code(s): 06381602 Code(s): I25.10 - ATHSCL HEART DISEASE OF [place] CORONARY ARTERY W/O ANG PCTRS Current Visit: No Qualifiers: Coronary Disease-Associated Artery/Lesion type: [place] artery [place] vs. transplanted heart: [place] heart Associated angina: without angina Qualified Code(s): I25.10 - Atherosclerotic heart disease of [place] coronary artery without angina pectoris (4) Chronic anticoagulation SNOMED Code(s): 824000437 Code(s): Z79.01 - DETENTION (CURRENT) USE OF ANTICOAGULANTS Current Visit: No (5) Diabetes type 2, controlled SNOMED Code(s): 58193952 Code(s): E11.9 - TYPE 2 DIABETES MELLITUS WITHOUT COMPLICATIONS Current Visit: No Qualifiers: Diabetes mellitus complication status: without complication Diabetes mellitus long term care administrator insulin use: without intermediate use Qualified Code(s): E11.9 - Type 2 diabetes mellitus without complications Problem List Initiated/Reviewed/Updated: Yes My Orders last 24 hours: My Active Orders 02/10/17 13:47 Blood Glucose Check, Bedside [RC] TIDAC 02/10/17 17:00 Insulin Aspart [NovoLOG] See Protocol SUBCUT TIDAC 02/10/17 21:00 Lisinopril [Prinivil] 5 mg PO BEDTIME Metoprolol Tartrate [Lopressor] 25 mg PO BID 02/11/17 07:48 Magnesium Sulfate/Water [Magnesium Sulfate 2 GM in Water 50 ML] 2 gm Premix Bag 1 bag IV ONETIME 02/11/17 09:00 Aspirin 81 mg PO DAILY Patient's Own Medication [Ptom] 1.8 each SUBCUT DAILY atorvaSTATin [Lipitor] 40 mg PO DAILY 02/11/17 14:00 Warfarin [Coumadin] 7.5 mg PO DAILY@1400 02/12/17 05:00 BASIC METABOLIC PANEL,BMP [CHEM] DAILY CBC WITH AUTO DIFF [HEME] DAILY MAGNESIUM [CHEM] DAILY 02/13/17 05:00 BASIC METABOLIC PANEL,BMP [CHEM] DAILY CBC WITH AUTO DIFF [HEME] DAILY MAGNESIUM [CHEM] DAILY Plan: This 76 year old male admitted with L TKA, Hospitalist service consulted for medical management. 1. S/P L TKA: Doing well, orders per Ortho. 2. Afib: Stable. Continue Metoprolol. Restart Coumadin tomorrow. Monitor INR and electrolytes. Hypomagnesemia noted, replaced with 2 gm IV today 3. DM type 2: Hold Metformin. Novolog SSI TIDAC. 4. CAD: Continue ASA, Atorvastatin, and Lisinopril. VTE prophylaxis: Restarting Coumadin today
[2017-02-11] MEDS ORDERED: Sodium Chloride 0.9% 2.5 ML Syringe FLUSH PRN (07:56)
[2017-02-11] MEDS ORDERED: Sodium Chloride 0.9% 10 ML Syringe FLUSH PRN (07:56)
[2017-02-11] MEDS ORDERED: Magnesium Sulfate/Water 2 GM in Premix Bag 1 BAG IV ONE (08:00)
--- NOTE | 2017-02-11 08:12 | PCM48HPAN ---
Post Anesthesia Note - EVALUATION WITHIN 48HRS OF ANESTHETIC Vital Signs in Normal Range: Yes Patient Participated in Evaluation: Yes Respiratory Function Stable: Yes Airway Patent: Yes Cardiovascular Function Stable: Yes Hydration Status Stable: Yes Pain Control Satisfactory: Yes Nausea and Vomiting Control Satisfactory: Yes Mental Status Recovered: Yes
[2017-02-11] MEDS: Aspirin 81 MG Tab.Chew PO SCH (08:28)
[2017-02-11] MEDS: atorvaSTATin 40 MG Tab PO SCH (08:28)
[2017-02-11] MEDS: Docusate Sodium 100 MG Cap PO SCH ×2 (08:28→20:38)
[2017-02-11] MEDS: Metoprolol Tartrate 25 MG Tab PO SCH ×2 (08:29→20:39)
[2017-02-11] MEDS: Enoxaparin 40 MG/0.4 ML Syringe SUBCUT SCH (08:29)
--- NOTE | 2017-02-11 08:55 | PCM.SURGPN ---
- General Info Date of Service: 02/11/17 Date of Surgery/Procedure: 02/10/17 POD#: 1 Functional Status: Reports: pain controlled, tolerating diet, ambulating, urinating - Review of Systems General: Reports: No Symptoms Pulmonary: Reports: no symptoms Cardiovascular: Reports: No Symptoms Gastrointestinal: Reports: No symptoms Genitourinary: Reports: no symptoms Musculoskeletal: Reports: leg pain, joint pain, joint swelling Neurological: Reports: No Symptoms Psychiatric: Reports: no symptoms - Patient Data Vitals - most recent: Last Vital Signs Temp 37.1 C 02/11/17 04:00 Pulse 89 02/11/17 08:29 Resp 20 02/11/17 04:00 BP 105/62 02/11/17 08:29 Pulse Ox 94 L 02/11/17 04:00 Weight - most recent: 89.811 kg I&O - last 24 hours: Intake & Output 02/10/17 02/11/17 02/11/17 22:59 06:59 14:59 Intake Total 271 4250 Output Total 180 1675 Balance 91 2575 Lab Results last 24 hrs: Laboratory Results - last 24 hr 02/10/17 02/10/17 02/10/17 Range/Units 08:48 08:48 13:56 WBC 8.05 (4.0-11.0) K/uL RBC 3.62 L (4.50-5.90) M/uL Hgb 10.9 L (13.0-17.0) g/dL Hct 33.1 L (38.0-50.0) % MCV 91.4 (80.0-98.0) fL MCH 30.1 (27.0-32.0) pg MCHC 32.9 (31.0-37.0) g/dL RDW Std Deviation 48.1 (28.0-62.0) fl RDW Coeff of Natalie 14 (11.0-15.0) % Plt Count 224 (150-400) K/uL MPV 9.00 (7.40-12.00) fL Neut % (Auto) 66.7 (48.0-80.0) % Lymph % (Auto) 18.6 (16.0-40.0) % [place] % (Auto) 12.4 (0.0-15.0) % Eos % (Auto) 1.9 (0.0-7.0) % Baso % (Auto) 0.4 (0.0-1.5) % Neut # (Auto) 5.4 (1.4-5.7) K/uL Lymph # (Auto) 1.5 (0.6-2.4) K/uL [place] # (Auto) 1.0 H (0.0-0.8) K/uL Eos # (Auto) 0.2 (0.0-0.7) K/uL Baso # (Auto) 0.0 (0.0-0.1) K/uL Nucleated RBC % 0.0 /100WBC Nucleated RBCs # 0 K/uL INR 1.06 (0.86-1.11) Sodium (136-146) mmol/L Potassium (3.5-5.1) mmol/L Chloride (98-110) mmol/L Carbon Dioxide (21-31) mmol/L BUN (6.0-23.0) mg/dL Creatinine (0.6-1.5) mg/dL Est Cr Clr Drug Dosing mL/min Estimated GFR (MDRD) ml/min Glucose (60-110) mg/dL POC Glucose (60-110) mg/dL Calcium (8.8-10.8) mg/dL Magnesium (1.5-2.3) mEq/L Total Bilirubin (0.1-1.5) mg/dL AST (5-40) IU/L ALT (8-54) IU/L Alkaline Phosphatase (40-150) Total Protein (6.0-8.0) g/dL Albumin (3.4-4.8) g/dL Globulin (2.0-3.5) g/dL Albumin/Globulin Ratio (1.3-2.8) Blood Type A POSITIVE Antibody Screen NEGATIVE Cold Antibody Screen POSITIVE 02/10/17 02/10/17 02/11/17 Range/Units 13:56 16:08 04:24 WBC 12.07 H (4.0-11.0) K/uL RBC 3.10 L (4.50-5.90) M/uL Hgb 9.3 L (13.0-17.0) g/dL Hct 28.1 L (38.0-50.0) % MCV 90.6 (80.0-98.0) fL MCH 30.0 (27.0-32.0) pg MCHC 33.1 (31.0-37.0) g/dL RDW Std Deviation 46.3 (28.0-62.0) fl RDW Coeff of Natalie 14 (11.0-15.0) % Plt Count 188 (150-400) K/uL MPV 9.10 (7.40-12.00) fL Neut % (Auto) 80.4 H (48.0-80.0) % Lymph % (Auto) 9.6 L (16.0-40.0) % [place] % (Auto) 8.9 (0.0-15.0) % Eos % (Auto) 0.9 (0.0-7.0) % Baso % (Auto) 0.2 (0.0-1.5) % Neut # (Auto) 9.7 H (1.4-5.7) K/uL Lymph # (Auto) 1.2 (0.6-2.4) K/uL [place] # (Auto) 1.1 H (0.0-0.8) K/uL Eos # (Auto) 0.1 (0.0-0.7) K/uL Baso # (Auto) 0.0 (0.0-0.1) K/uL Nucleated RBC % 0.0 /100WBC Nucleated RBCs # 0 K/uL INR (0.86-1.11) Sodium 138 (136-146) mmol/L Potassium 4.4 (3.5-5.1) mmol/L Chloride 107 (98-110) mmol/L Carbon Dioxide 21 (21-31) mmol/L BUN 11 (6.0-23.0) mg/dL Creatinine 0.8 (0.6-1.5) mg/dL Est Cr Clr Drug Dosing 74.59 mL/min Estimated GFR (MDRD) > 60.0 ml/min Glucose 120 H (60-110) mg/dL POC Glucose 176 H (60-110) mg/dL Calcium 8.8 (8.8-10.8) mg/dL Magnesium 1.2 L (1.5-2.3) mEq/L Total Bilirubin 1.1 (0.1-1.5) mg/dL AST 14 (5-40) IU/L ALT 14 (8-54) IU/L Alkaline Phosphatase 71 (40-150) Total Protein 5.8 L (6.0-8.0) g/dL Albumin 3.4 (3.4-4.8) g/dL Globulin 2.4 (2.0-3.5) g/dL Albumin/Globulin Ratio 1.4 (1.3-2.8) Blood Type Antibody Screen Cold Antibody Screen 02/11/17 02/11/17 02/11/17 Range/Units 04:24 04:24 06:47 WBC (4.0-11.0) K/uL RBC (4.50-5.90) M/uL Hgb (13.0-17.0) g/dL Hct (38.0-50.0) % MCV (80.0-98.0) fL MCH (27.0-32.0) pg MCHC (31.0-37.0) g/dL RDW Std Deviation (28.0-62.0) fl RDW Coeff of Natalie (11.0-15.0) % Plt Count (150-400) K/uL MPV (7.40-12.00) fL Neut % (Auto) (48.0-80.0) % Lymph % (Auto) (16.0-40.0) % [place] % (Auto) (0.0-15.0) % Eos % (Auto) (0.0-7.0) % Baso % (Auto) (0.0-1.5) % Neut # (Auto) (1.4-5.7) K/uL Lymph # (Auto) (0.6-2.4) K/uL [place] # (Auto) (0.0-0.8) K/uL Eos # (Auto) (0.0-0.7) K/uL Baso # (Auto) (0.0-0.1) K/uL Nucleated RBC % /100WBC Nucleated RBCs # K/uL INR 1.03 (0.86-1.11) Sodium 131 L (136-146) mmol/L Potassium 4.4 (3.5-5.1) mmol/L Chloride 102 (98-110) mmol/L Carbon Dioxide 21 (21-31) mmol/L BUN 14 (6.0-23.0) mg/dL Creatinine 0.7 (0.6-1.5) mg/dL Est Cr Clr Drug Dosing 85.25 mL/min Estimated GFR (MDRD) > 60.0 ml/min Glucose 142 H (60-110) mg/dL POC Glucose 123 H (60-110) mg/dL Calcium 7.9 L (8.8-10.8) mg/dL Magnesium 1.6 (1.5-2.3) mEq/L Total Bilirubin (0.1-1.5) mg/dL AST (5-40) IU/L ALT (8-54) IU/L Alkaline Phosphatase (40-150) Total Protein (6.0-8.0) g/dL Albumin (3.4-4.8) g/dL Globulin (2.0-3.5) g/dL Albumin/Globulin Ratio (1.3-2.8) Blood Type Antibody Screen Cold Antibody Screen Med Orders - Current: Current Medications Acetaminophen (Tylenol Extra Strength) 1,000 mg PO Q6H [facility] Last Admin: 02/11/17 02:59 Dose: 1,000 mg Aspirin (Aspirin) 81 mg PO DAILY [facility] Last Admin: 02/11/17 08:28 Dose: 81 mg Atorvastatin Calcium (Lipitor) 40 mg PO DAILY [facility] Last Admin: 02/11/17 08:28 Dose: 40 mg Bisacodyl (Dulcolax) 10 mg RECTAL DAILY PRN PRN Reason: Constipation Diphenhydramine HCl (Benadryl) 25 - 50 mg PO Q6H PRN PRN Reason: Itching Docusate Sodium (Colace) 100 mg PO BID [facility] Last Admin: 02/11/17 08:28 Dose: 100 mg Enoxaparin Sodium (Lovenox) 40 mg SUBCUT DAILY [facility] Last Admin: 02/11/17 08:29 Dose: 40 mg Hydromorphone HCl (Dilaudid) 0.5 - 1 mg IVPUSH Q3H PRN PRN Reason: Pain Magnesium Sulfate 2 gm/ Premix 50 mls @ 50 mls/hr IV ONETIME ONE Stop: 02/11/17 08:59 Last Admin: 02/11/17 08:25 Dose: 50 mls/hr Insulin Aspart (Novolog) 0 unit SUBCUT TIDAC [facility] PRN Reason: Protocol Last Admin: 02/11/17 07:14 Dose: Not Given Lisinopril (Prinivil) 5 mg PO BEDTIME [facility] Last Admin: 02/10/17 21:52 Dose: Not Given Metoprolol Tartrate (Lopressor) 25 mg PO BID [facility] Last Admin: 02/11/17 08:29 Dose: 25 mg Ondansetron HCl (Zofran) 4 mg IV Q6HR PRN PRN Reason: NAUSEA/VOMITING Oxycodone HCl (Oxycodone) 5 - 10 mg PO Q4H PRN PRN Reason: Pain Last Admin: 02/11/17 08:43 Dose: 10 mg Liraglutide 1.8 Mg 1.8 each SUBCUT DAILY [facility] Scopolamine (Transderm-Scop) 1.5 mg TRDERM ONARRIVE [facility] Last Admin: 02/10/17 07:34 Dose: 1.5 mg Sodium Chloride (Saline Flush) 10 ml FLUSH ASDIRECTED PRN PRN Reason: Keep Vein Open Sodium Chloride (Saline Flush) 2.5 ml FLUSH ASDIRECTED PRN PRN Reason: Keep Vein Open Warfarin Sodium (Coumadin) 7.5 mg PO DAILY@1400 [facility] Discontinued Medications Acetaminophen (Tylenol Extra Strength) 1,000 mg PO ONARRIVE [facility] Last Admin: 02/10/17 07:34 Dose: 1,000 mg Calcium Carbonate/Glycine (Tums) 1,000 mg PO ONETIME ONE Stop: 02/11/17 07:50 Last Admin: 02/11/17 08:25 Dose: 1,000 mg Famotidine (Pepcid) 40 mg IVPUSH ONARRIVE [facility] Last Admin: 02/10/17 07:34 Dose: 40 mg Fentanyl (Sublimaze) Confirm Administered Dose 100 mcg .ROUTE .STK-MED ONE Stop: 02/10/17 08:33 Fentanyl (Sublimaze) Confirm Administered Dose 100 mcg .ROUTE .STK-MED ONE Stop: 02/10/17 11:34 Ropivacaine 49.25 ml/Epinephrine HCl 0.5 mg/Clonidine HCl 80 mcg/ Sodium Chloride 99 mls @ 50 mls/min INJECT ONETIME ONE Stop: 02/10/17 06:01 Clindamycin Phosphate 900 mg/ (Premix) 50 mls @ 100 mls/hr IV ONCALL [facility] Last Admin: 02/10/17 07:35 Dose: 100 mls/hr Ropivacaine 49.25 ml/Ketorolac Tromethamine 30 mg/Epinephrine HCl 0.5 mg/ Clonidine HCl 80 mcg/ Sodium Chloride 100 mls @ 50 mls/min INJECT ONETIME ONE Stop: 02/10/17 06:01 Last Admin: 02/10/17 20:07 Dose: Not Given Lactated Ringer's (Ringers, Lactated) 1,000 mls @ 100 mls/hr IV ASDIRECTED [facility] Last Admin: 02/11/17 02:55 Dose: 100 mls/hr Clindamycin Phosphate 900 mg/ (Premix) 50 mls @ 100 mls/hr IV Q8H [facility] Clindamycin Phosphate 900 mg/ (Premix) 50 mls @ 100 mls/hr IV ONCALL [facility] Stop: 02/11/17 19:29 Clindamycin Phosphate 900 mg/ (Premix) 50 mls @ 100 mls/hr IV Q8H [facility] Stop: 02/11/17 03:29 Last Admin: 02/11/17 02:56 Dose: 100 mls/hr Magnesium Sulfate 4 gm/ Premix 100 mls @ 50 mls/hr IV ONETIME ONE Stop: 02/10/17 16:38 Last Admin: 02/10/17 14:59 Dose: 50 mls/hr Lidocaine (Xylocaine-Mpf 2%) Confirm Administered Dose 5 ml .ROUTE .STK-MED ONE Stop: 02/10/17 08:32 Lisinopril (Prinivil) 5 mg PO DAILY [facility] Midazolam HCl (Versed 1 Mg/Ml) Confirm Administered Dose 2 mg .ROUTE .STK-MED ONE Stop: 02/10/17 08:33 Ondansetron HCl (Zofran) Confirm Administered Dose 4 mg .ROUTE .STK-MED ONE Stop: 02/10/17 08:33 Phenylephrine HCl (Phenylephrine In Ns 100 Mcg/Ml) Confirm Administered Dose 1 mg .ROUTE .STK-MED ONE Stop: 02/10/17 11:46 Propofol (Diprivan 20 Ml) Confirm Administered Dose 600 mg .ROUTE .STK-MED ONE Stop: 02/10/17 08:33 Propofol (Diprivan 20 Ml) Confirm Administered Dose 200 mg .ROUTE .STK-MED ONE Stop: 02/10/17 12:01 Tranexamic Acid (Cyklokapron) 4,000 mg IV SEECOMMENT [facility] Tranexamic Acid (Cyklokapron) Confirm Administered Dose 4,000 mg .ROUTE .STK- MED ONE Stop: 02/10/17 07:31 - Exam Wound/Incisions: dressing dry and intact General: alert, oriented HEENT: Pupils equal, Pupils reactive Neck: trachea midline Lungs: Normal respiratory effort Cardiovascular: Regular Rate Extremities: other (Left anterior tibialis, extensor hallucis longus and gastrocnemius strength +5/5 bilaterally. Sensation intact. Dorsalis pedis and posterior tibial pulses +2 bilaterally. ) Neurological: no new focal deficit Psy/Mental Status: alert, normal affect - Problem List Review Problem List Initiated/Reviewed/Updated: Yes - My Orders Last 24 Hours: Active Orders 24 hr Category Date Time Status Patient Status [ADT] Routine ADT 02/10/17 12:20 Active Transfer Patient (Change bed) [ADT] Routine ADT 02/10/17 12:20 Ordered Activity as Tolerated [RC] .Routine Care 02/10/17 12:09 Active Blood Glucose Check, Bedside [RC] TIDAC Care 02/10/17 13:47 Active Neurovascular Check [RC] Q2HR Care 02/10/17 12:08 Active Notify Provider Consults [RC] ASDIRECTED Care 02/10/17 12:10 Active Notify Provider Vital Signs [RC] ASDIRECTED Care 02/10/17 12:09 Active Remove Clinton Catheter [Urinary Catheter Removal] [RC] Care 02/11/17 07:56 Active Per Unit Routine Vital Signs [RC] Q4H Care 02/10/17 12:08 Active Consult to Physician [CONS] Routine Cons 02/10/17 12:08 Active PT Evaluation and Treatment [CONS] Routine Cons 02/10/17 12:08 Active BASIC METABOLIC PANEL,BMP [CHEM] DAILY Lab 02/12/17 05:00 Ordered BASIC METABOLIC PANEL,BMP [CHEM] DAILY Lab 02/13/17 05:00 Ordered CBC WITH AUTO DIFF [HEME] DAILY Lab 02/12/17 05:00 Ordered CBC WITH AUTO DIFF [HEME] DAILY Lab 02/13/17 05:00 Ordered MAGNESIUM [CHEM] DAILY Lab 02/12/17 05:00 Ordered MAGNESIUM [CHEM] DAILY Lab 02/13/17 05:00 Ordered Acetaminophen [Tylenol Extra Strength] Med 02/10/17 16:00 Active 1,000 mg PO Q6H Aspirin Med 02/11/17 09:00 Active 81 mg PO DAILY Bisacodyl [Dulcolax] Med 02/10/17 12:09 Active 10 mg RECTAL DAILY PRN Docusate Sodium [Colace] Med 02/10/17 21:00 Active 100 mg PO BID Enoxaparin [Lovenox] Med 02/11/17 09:00 Active 40 mg SUBCUT DAILY HYDROmorphone [Dilaudid] Med 02/10/17 12:19 Active 0.5 - 1 mg IVPUSH Q3H PRN Insulin Aspart [NovoLOG] Med 02/10/17 17:00 Active See Protocol SUBCUT TIDAC Lisinopril [Prinivil] Med 02/10/17 21:00 Active 5 mg PO BEDTIME Magnesium Sulfate/Water [Magnesium Sulfate 2 GM in Med 02/11/17 08:00 Active Water 50 ML] 2 gm Premix Bag 1 bag IV ONETIME Metoprolol Tartrate [Lopressor] Med 02/10/17 21:00 Active 25 mg PO BID Ondansetron [Zofran] Med 02/10/17 12:09 Active 4 mg IV Q6HR PRN Patient's Own Medication [Ptom] Med 02/11/17 09:00 Active 1.8 each SUBCUT DAILY Sodium Chloride 0.9% [Saline Flush] Med 02/11/17 07:56 Active 10 ml FLUSH ASDIRECTED PRN Sodium Chloride 0.9% [Saline Flush] Med 02/11/17 07:56 Active 2.5 ml FLUSH ASDIRECTED PRN Warfarin [Coumadin] Med 02/11/17 14:00 Active 7.5 mg PO DAILY@1400 atorvaSTATin [Lipitor] Med 02/11/17 09:00 Active 40 mg PO DAILY diphenhydrAMINE [Benadryl] Med 02/10/17 12:09 Active 25 - 50 mg PO Q6H PRN oxyCODONE Med 02/10/17 12:19 Active 5 - 10 mg PO Q4H PRN Convert IV to Saline Lock [OM.PC] Routine Oth 02/11/17 07:56 Ordered Ice Therapy [OM.PC] Routine Oth 02/10/17 12:09 Ordered Medication Orders Acetaminophen (Tylenol Extra Strength) 1,000 mg PO Q6H [facility] Last Admin: 02/11/17 02:59 Dose: 1,000 mg Admin: 02/10/17 21:46 Dose: 1,000 mg Admin: 02/10/17 15:47 Dose: 1,000 mg Aspirin (Aspirin) 81 mg PO DAILY [facility] Last Admin: 02/11/17 08:28 Dose: 81 mg Atorvastatin Calcium (Lipitor) 40 mg PO DAILY [facility] Last Admin: 02/11/17 08:28 Dose: 40 mg Bisacodyl (Dulcolax) 10 mg RECTAL DAILY PRN PRN Reason: Constipation Diphenhydramine HCl (Benadryl) 25 - 50 mg PO Q6H PRN PRN Reason: Itching Docusate Sodium (Colace) 100 mg PO BID [facility] Last Admin: 02/11/17 08:28 Dose: 100 mg Admin: 02/10/17 21:47 Dose: 100 mg Enoxaparin Sodium (Lovenox) 40 mg SUBCUT DAILY [facility] Last Admin: 02/11/17 08:29 Dose: 40 mg Hydromorphone HCl (Dilaudid) 0.5 - 1 mg IVPUSH Q3H PRN PRN Reason: Pain Magnesium Sulfate 2 gm/ Premix 50 mls @ 50 mls/hr IV ONETIME ONE Stop: 02/11/17 08:59 Last Admin: 02/11/17 08:25 Dose: 50 mls/hr Insulin Aspart (Novolog) 0 unit SUBCUT TIDAC [facility] PRN Reason: Protocol Last Admin: 02/11/17 07:14 Dose: Not Given Admin: 02/10/17 16:57 Dose: 1 unit Lisinopril (Prinivil) 5 mg PO BEDTIME [facility] Last Admin: 02/10/17 21:52 Dose: Not Given Metoprolol Tartrate (Lopressor) 25 mg PO BID [facility] Last Admin: 02/11/17 08:29 Dose: 25 mg Admin: 02/10/17 21:52 Dose: Not Given Ondansetron HCl (Zofran) 4 mg IV Q6HR PRN PRN Reason: NAUSEA/VOMITING Oxycodone HCl (Oxycodone) 5 - 10 mg PO Q4H PRN PRN Reason: Pain Last Admin: 02/11/17 08:43 Dose: 10 mg Admin: 02/11/17 04:40 Dose: 10 mg Admin: 02/11/17 00:08 Dose: 10 mg Admin: 02/10/17 17:53 Dose: 5 mg Liraglutide 1.8 Mg 1.8 each SUBCUT DAILY [facility] Scopolamine (Transderm-Scop) 1.5 mg TRDERM ONARRIVE [facility] Last Admin: 02/10/17 07:34 Dose: 1.5 mg Sodium Chloride (Saline Flush) 10 ml FLUSH ASDIRECTED PRN PRN Reason: Keep Vein Open Sodium Chloride (Saline Flush) 2.5 ml FLUSH ASDIRECTED PRN PRN Reason: Keep Vein Open Warfarin Sodium (Coumadin) 7.5 mg PO DAILY@1400 [facility] - Assessment Assessment (Free Text/Narrative):: Patient up to chair this AM Pain controlled Tolerating diet VSS UO 2505 mL Hgb 9.3 - Plan Plan (Free Text/Narrative):: Continue pain management Continue PT Clinton out, IV to saline lock Encourage PO fluid intake Start Lovenox 40 mg daily, restart home medication Warfarin 7.5 mg daily today If pain controlled and ambulating, plan D/C home tomorrow
[2017-02-11] MEDS ORDERED: Lisinopril 5 MG Tab PO SCH (09:00)
[2017-02-11] MEDS: Ondansetron 4 MG/2 ML SDV IV PRN ×2 (12:29→20:47)
[2017-02-11] MEDS: Warfarin 5 MG Tab PO SCH (13:23)
--- NOTE | 2017-02-11 17:47 | PCM.SN ---
- Free Text/Narrative Note: Patient seen and examined. Agree with SIERRA Arciniega note. Patient pain controlled. Complains of some "indigestion". H/o of this at home, relieved with Maalox. Denies n/v. Slow with PT today. Dressing dry/intact. NVI. 1. Coumadin restarted (home dose), Lovenox until INR therapeutic 2. PT for gait training, ROM 3. Maalox prn 4. continue current pain management 5. possible d/c home tomorrow
[2017-02-11] MEDS: Aluminum Hydroxide/Magnesium Hydroxide/Simethicone Susp 30 ML Cup PO PRN (19:24)
[2017-02-11] MEDS: Lisinopril 5 MG Tab PO SCH (20:39)
[2017-02-12] MEDS: Acetaminophen 500 MG Tab PO SCH ×4 (04:21→21:42)
[2017-02-12 05:47] LABS: CHLORIDE,CL 99 mmol/L (98-110); SODIUM,NA 129 mmol/L (136-146)
[2017-02-12] MEDS: Insulin Aspart 100 Units/ML 3 ML Pen SUBCUT SCH ×3 (06:35→17:30)
[2017-02-12] MEDS: oxyCODONE 5 MG Tab PO PRN ×3 (06:55→16:16)
[2017-02-12] MEDS ORDERED: Magnesium Sulfate/Water 2 GM in Premix Bag 1 BAG IV ONE (07:46)
--- NOTE | 2017-02-12 07:49 | PCM.CONSN ---
- General Info Date of Service: 02/12/17 Admission Dx/Problem (Free Text): Admission Diagnosis/Problem Admission Diagnosis/Problem Replacement of total knee joint Subjective Update: Sitting up in the chair, finished breakfast. Waiting for PT to come for exercises. Denies any chest pain or SOB. Is alert and oriented. Functional Status: Reports: pain controlled, tolerating diet, ambulating, urinating - Review of Systems General: Reports: No Symptoms. Denies: Fever HEENT: Reports: no symptoms. Denies: headaches, sinus congestion, sore throat, visual changes Pulmonary: Reports: no symptoms. Denies: shortness of breath, cough, sputum Cardiovascular: Reports: No Symptoms. Denies: Chest Pain, Dyspnea on Exertion, Edema Gastrointestinal: Reports: No symptoms. Denies: Abdominal pain, Nausea, Vomiting Genitourinary: Reports: no symptoms. Denies: dysuria, frequency, burning, pain Musculoskeletal: Reports: joint pain (L knee pain, intermittently, pain medications helping) Skin: Reports: no symptoms Neurological: Reports: No Symptoms Psychiatric: Reports: no symptoms - Patient Data Vitals - most recent: Last Vital Signs Temp 99.0 F 02/12/17 04:00 Pulse 88 02/12/17 04:00 Resp 20 02/12/17 04:00 BP 115/55 L 02/12/17 04:00 Pulse Ox 95 02/12/17 04:00 Weight - most recent: 89.811 kg I&O - last 24 hours: Intake & Output 02/11/17 02/12/17 02/12/17 22:59 06:59 14:59 Intake Total 1400 1100 Output Total 2000 1900 Balance -600 -800 Lab Results last 24 hrs: Laboratory Results - last 24 hr 02/11/17 02/11/17 02/12/17 Range/Units 11:38 16:22 04:44 WBC 10.42 (4.0-11.0) K/uL RBC 3.01 L (4.50-5.90) M/uL Hgb 9.1 L (13.0-17.0) g/dL Hct 26.4 L (38.0-50.0) % MCV 87.7 (80.0-98.0) fL MCH 30.2 (27.0-32.0) pg MCHC 34.5 (31.0-37.0) g/dL RDW Std Deviation 44.1 (28.0-62.0) fl RDW Coeff of Natalie 14 (11.0-15.0) % Plt Count 171 (150-400) K/uL MPV 9.30 (7.40-12.00) fL Add Manual Diff YES Neutrophils % (Manual) 75 (48.0-80.0) % Band Neutrophils % 3 % Lymphocytes % (Manual) 10 L (16.0-40.0) % Monocytes % (Manual) 10 (0.0-15.0) % Eosinophils % (Manual) 1 (0.0-7.0) % Basophils % (Manual) 1 (0.0-1.5) % Nucleated RBC % 0.0 /100WBC Absolute Seg Neuts 7.8 Band Neutrophils # 0.3 Lymphocytes # (Manual) 1.0 Monocytes # (Manual) 1.0 Eosinophils # (Manual) 0.1 Basophils # (Manual) 0 Nucleated RBCs # 0 K/uL Sodium (136-146) mmol/L Potassium (3.5-5.1) mmol/L Chloride (98-110) mmol/L Carbon Dioxide (21-31) mmol/L BUN (6.0-23.0) mg/dL Creatinine (0.6-1.5) mg/dL Est Cr Clr Drug Dosing mL/min Estimated GFR (MDRD) ml/min Glucose (60-110) mg/dL POC Glucose 136 H 169 H (60-110) mg/dL Calcium (8.8-10.8) mg/dL Magnesium (1.5-2.3) mEq/L 02/12/17 02/12/17 Range/Units 04:44 06:22 WBC (4.0-11.0) K/uL RBC (4.50-5.90) M/uL Hgb (13.0-17.0) g/dL Hct (38.0-50.0) % MCV (80.0-98.0) fL MCH (27.0-32.0) pg MCHC (31.0-37.0) g/dL RDW Std Deviation (28.0-62.0) fl RDW Coeff of Natalie (11.0-15.0) % Plt Count (150-400) K/uL MPV (7.40-12.00) fL Add Manual Diff Neutrophils % (Manual) (48.0-80.0) % Band Neutrophils % % Lymphocytes % (Manual) (16.0-40.0) % Monocytes % (Manual) (0.0-15.0) % Eosinophils % (Manual) (0.0-7.0) % Basophils % (Manual) (0.0-1.5) % Nucleated RBC % /100WBC Absolute Seg Neuts Band Neutrophils # Lymphocytes # (Manual) Monocytes # (Manual) Eosinophils # (Manual) Basophils # (Manual) Nucleated RBCs # K/uL Sodium 129 L (136-146) mmol/L Potassium 4.4 (3.5-5.1) mmol/L Chloride 99 (98-110) mmol/L Carbon Dioxide 20 L (21-31) mmol/L BUN 10 (6.0-23.0) mg/dL Creatinine 0.8 (0.6-1.5) mg/dL Est Cr Clr Drug Dosing 74.59 mL/min Estimated GFR (MDRD) > 60.0 ml/min Glucose 136 H (60-110) mg/dL POC Glucose 149 H (60-110) mg/dL Calcium 8.0 L (8.8-10.8) mg/dL Magnesium 1.6 (1.5-2.3) mEq/L Med Orders - Current: Current Medications Acetaminophen (Tylenol Extra Strength) 1,000 mg PO Q6H [facility] Last Admin: 02/12/17 04:21 Dose: 1,000 mg Al Hydroxide/Mg Hydroxide (Mag-Al Plus) 30 ml PO Q4H PRN PRN Reason: Abdominal Pain Last Admin: 02/11/17 19:24 Dose: 30 ml Aspirin (Aspirin) 81 mg PO DAILY [facility] Last Admin: 02/11/17 08:28 Dose: 81 mg Atorvastatin Calcium (Lipitor) 40 mg PO DAILY [facility] Last Admin: 02/11/17 08:28 Dose: 40 mg Bisacodyl (Dulcolax) 10 mg RECTAL DAILY PRN PRN Reason: Constipation Diphenhydramine HCl (Benadryl) 25 - 50 mg PO Q6H PRN PRN Reason: Itching Docusate Sodium (Colace) 100 mg PO BID [facility] Last Admin: 02/11/17 20:38 Dose: 100 mg Enoxaparin Sodium (Lovenox) 40 mg SUBCUT DAILY [facility] Last Admin: 02/11/17 08:29 Dose: 40 mg Hydromorphone HCl (Dilaudid) 0.5 - 1 mg IVPUSH Q3H PRN PRN Reason: Pain Magnesium Sulfate 2 gm/ Premix 50 mls @ 50 mls/hr IV ONETIME ONE Stop: 02/12/17 08:45 Insulin Aspart (Novolog) 0 unit SUBCUT TIDAC [facility] PRN Reason: Protocol Last Admin: 02/12/17 06:35 Dose: Not Given Lisinopril (Prinivil) 5 mg PO BEDTIME [facility] Last Admin: 02/11/17 20:39 Dose: 5 mg Metoprolol Tartrate (Lopressor) 25 mg PO BID [facility] Last Admin: 02/11/17 20:39 Dose: 25 mg Ondansetron HCl (Zofran) 4 mg IV Q6HR PRN PRN Reason: NAUSEA/VOMITING Last Admin: 02/11/17 20:47 Dose: 4 mg Oxycodone HCl (Oxycodone) 5 - 10 mg PO Q4H PRN PRN Reason: Pain Last Admin: 02/12/17 06:55 Dose: 10 mg Sodium Chloride (Saline Flush) 10 ml FLUSH ASDIRECTED PRN PRN Reason: Keep Vein Open Sodium Chloride (Saline Flush) 2.5 ml FLUSH ASDIRECTED PRN PRN Reason: Keep Vein Open Warfarin Sodium (Coumadin) 7.5 mg PO DAILY@1400 [facility] Last Admin: 02/11/17 13:23 Dose: 7.5 mg Discontinued Medications Acetaminophen (Tylenol Extra Strength) 1,000 mg PO ONARRIVE [facility] Last Admin: 02/10/17 07:34 Dose: 1,000 mg Calcium Carbonate/Glycine (Tums) 1,000 mg PO ONETIME ONE Stop: 02/11/17 07:50 Last Admin: 02/11/17 08:25 Dose: 1,000 mg Famotidine (Pepcid) 40 mg IVPUSH ONARRIVE [facility] Last Admin: 02/10/17 07:34 Dose: 40 mg Fentanyl (Sublimaze) Confirm Administered Dose 100 mcg .ROUTE .STK-MED ONE Stop: 02/10/17 08:33 Fentanyl (Sublimaze) Confirm Administered Dose 100 mcg .ROUTE .STK-MED ONE Stop: 02/10/17 11:34 Ropivacaine 49.25 ml/Epinephrine HCl 0.5 mg/Clonidine HCl 80 mcg/ Sodium Chloride 99 mls @ 50 mls/min INJECT ONETIME ONE Stop: 02/10/17 06:01 Clindamycin Phosphate 900 mg/ (Premix) 50 mls @ 100 mls/hr IV ONCALL [facility] Last Admin: 02/10/17 07:35 Dose: 100 mls/hr Ropivacaine 49.25 ml/Ketorolac Tromethamine 30 mg/Epinephrine HCl 0.5 mg/ Clonidine HCl 80 mcg/ Sodium Chloride 100 mls @ 50 mls/min INJECT ONETIME ONE Stop: 02/10/17 06:01 Last Admin: 02/10/17 20:07 Dose: Not Given Lactated Ringer's (Ringers, Lactated) 1,000 mls @ 100 mls/hr IV ASDIRECTED [facility] Last Admin: 02/11/17 02:55 Dose: 100 mls/hr Clindamycin Phosphate 900 mg/ (Premix) 50 mls @ 100 mls/hr IV Q8H [facility] Clindamycin Phosphate 900 mg/ (Premix) 50 mls @ 100 mls/hr IV ONCALL [facility] Stop: 02/11/17 19:29 Clindamycin Phosphate 900 mg/ (Premix) 50 mls @ 100 mls/hr IV Q8H [facility] Stop: 02/11/17 03:29 Last Admin: 02/11/17 02:56 Dose: 100 mls/hr Magnesium Sulfate 4 gm/ Premix 100 mls @ 50 mls/hr IV ONETIME ONE Stop: 02/10/17 16:38 Last Admin: 02/10/17 14:59 Dose: 50 mls/hr Magnesium Sulfate 2 gm/ Premix 50 mls @ 50 mls/hr IV ONETIME ONE Stop: 02/11/17 08:59 Last Admin: 02/11/17 08:25 Dose: 50 mls/hr Lidocaine (Xylocaine-Mpf 2%) Confirm Administered Dose 5 ml .ROUTE .STK-MED ONE Stop: 02/10/17 08:32 Lisinopril (Prinivil) 5 mg PO DAILY [facility] Midazolam HCl (Versed 1 Mg/Ml) Confirm Administered Dose 2 mg .ROUTE .STK-MED ONE Stop: 02/10/17 08:33 Ondansetron HCl (Zofran) Confirm Administered Dose 4 mg .ROUTE .STK-MED ONE Stop: 02/10/17 08:33 Liraglutide 1.8 Mg 1.8 each SUBCUT DAILY [facility] Last Admin: 02/11/17 09:20 Dose: Not Given Phenylephrine HCl (Phenylephrine In Ns 100 Mcg/Ml) Confirm Administered Dose 1 mg .ROUTE .STK-MED ONE Stop: 02/10/17 11:46 Propofol (Diprivan 20 Ml) Confirm Administered Dose 600 mg .ROUTE .STK-MED ONE Stop: 02/10/17 08:33 Propofol (Diprivan 20 Ml) Confirm Administered Dose 200 mg .ROUTE .STK-MED ONE Stop: 02/10/17 12:01 Scopolamine (Transderm-Scop) 1.5 mg TRDERM ONARRIVE [facility] Last Admin: 02/10/17 07:34 Dose: 1.5 mg Tranexamic Acid (Cyklokapron) 4,000 mg IV SEECOMMENT CHUY Tranexamic Acid (Cyklokapron) Confirm Administered Dose 4,000 mg .ROUTE .STK- MED ONE Stop: 02/10/17 07:31 - Exam General: alert, oriented, cooperative, no acute distress Lungs: Clear to auscultation, Normal respiratory effort Cardiovascular: Regular Rate, Regular Rhythm Abdomen: bowel sounds present, soft, no tenderness, no distension Extremities: normal pulses, edema (+1-2 to L operative leg, non pitting) Wound/Incisions: dressing dry and intact Psy/Mental Status: alert, normal affect, normal mood Consult PN Assessment/Plan Procedures: Procedures ASSAY OF CREATININE (04/18/16) ASSAY OF LACTIC ACID (04/26/16) ASSAY OF MAGNESIUM (03/28/16) ASSAY OF PSA TOTAL (10/17/16) ASSAY OF TROPONIN QUANT (07/16/16) ASSAY OF UREA NITROGEN (04/18/16) ASSAY OF VANCOMYCIN (04/26/16) BLOOD CULTURE FOR BACTERIA (04/26/16) C-REACTIVE PROTEIN (04/26/16) CHEST X-RAY 1 VIEW FRONTAL (07/16/16) COMPLETE CBC W/AUTO DIFF WBC (07/16/16) COMPREHEN METABOLIC PANEL (07/16/16) CREATINE MB FRACTION (03/28/16) CT HEAD/BRAIN W/O DYE (07/16/16) CT NECK SPINE W/O DYE (07/16/16) CT THORAX W/DYE (04/16/16) CULTR BACTERIA EXCEPT BLOOD (04/26/16) CULTURE AEROBIC IDENTIFY (04/26/16) CULTURE OTHR SPECIMN AEROBIC (04/26/16) DRAIN/INJ JOINT/BURSA W/O US (11/18/16) ELECTROCARDIOGRAM TRACING (07/16/16) EMERGENCY DEPT VISIT (11/17/16) EMERGENCY DEPT VISIT (07/16/16) EMERGENCY DEPT VISIT (04/26/16) EMERGENCY DEPT VISIT (03/28/16) GLUCOSE BLOOD TEST (04/26/16) IMMUNIZATION ADMIN (04/26/16) METABOLIC PANEL TOTAL CA (04/26/16) MICROBE SUSCEPTIBLE HEAVEN (04/26/16) N BLOCK INJ ILIO-ING/HYPOGI (09/03/16) OFFICE/OUTPATIENT VISIT EST (04/10/16) OFFICE/OUTPATIENT VISIT NEW (10/17/16) OFFICE/OUTPATIENT VISIT NEW (10/19/15) PROTHROMBIN TIME (11/17/16) PRP I/THERESA INIT REDUC >5 YR (11/27/15) RBC SED RATE AUTOMATED (04/26/16) ROUTINE VENIPUNCTURE (11/17/16) SMEAR GRAM STAIN (04/26/16) TDAP VACCINE 7 YRS/> IM (04/26/16) THER/PROPH/DIAG INJ IV PUSH (07/16/16) THER/PROPH/DIAG INJ SC/IM (11/17/16) THER/PROPH/DIAG IV INF INIT (04/26/16) TX/PRO/DX INJ NEW DRUG ADDON (07/16/16) UPR/L XTREMITY ART 2 LEVELS (01/17/17) URINALYSIS AUTO W/SCOPE (10/17/16) US EXAM SCROTUM (08/29/16) VASCULAR STUDY (08/29/16) X-RAY EXAM KNEE 4 OR MORE (11/18/16) X-RAY EXAM OF ELBOW (04/26/16) X-RAY EXAM OF KNEE 3 (11/17/16) X-RAY EXAM OF SHOULDER (07/16/16) (1) S/P total knee arthroplasty SNOMED Code(s): 1104102659567, 292575142, 2312431177049 Code(s): Z96.659 - PRESENCE OF UNSPECIFIED ARTIFICIAL KNEE JOINT Current Visit: Yes Qualifiers: Laterality: left Qualified Code(s): Z96.652 - Presence of left artificial knee joint (2) A-fib SNOMED Code(s): 34636160 Code(s): I48.91 - UNSPECIFIED ATRIAL FIBRILLATION Current Visit: No Qualifiers: Atrial fibrillation type: chronic Qualified Code(s): I48.2 - Chronic atrial fibrillation (3) CAD (coronary artery disease) SNOMED Code(s): 95218656 Code(s): I25.10 - ATHSCL HEART DISEASE OF [place] CORONARY ARTERY W/O ANG PCTRS Current Visit: No Qualifiers: Coronary Disease-Associated Artery/Lesion type: [place] artery [place] vs. transplanted heart: [place] heart Associated angina: without angina Qualified Code(s): I25.10 - Atherosclerotic heart disease of [place] coronary artery without angina pectoris (4) Chronic anticoagulation SNOMED Code(s): 692621812 Code(s): Z79.01 - CORRECTION (CURRENT) USE OF ANTICOAGULANTS Current Visit: No (5) Diabetes type 2, controlled SNOMED Code(s): 68221696 Code(s): E11.9 - TYPE 2 DIABETES MELLITUS WITHOUT COMPLICATIONS Current Visit: No Qualifiers: Diabetes mellitus complication status: without complication Diabetes mellitus exterminator termite insulin use: without exterminator termite use Qualified Code(s): E11.9 - Type 2 diabetes mellitus without complications Problem List Initiated/Reviewed/Updated: Yes My Orders last 24 hours: My Active Orders 02/11/17 09:00 Aspirin 81 mg PO DAILY atorvaSTATin [Lipitor] 40 mg PO DAILY 02/11/17 14:00 Warfarin [Coumadin] 7.5 mg PO DAILY@1400 02/12/17 07:46 Magnesium Sulfate/Water [Magnesium Sulfate 2 GM in Water 50 ML] 2 gm Premix Bag 1 bag IV ONETIME 02/13/17 05:00 BASIC METABOLIC PANEL,BMP [CHEM] DAILY CBC WITH AUTO DIFF [HEME] DAILY MAGNESIUM [CHEM] DAILY Plan: This 76 year old male admitted with L TKA, Hospitalist service consulted for medical management. 1. S/P L TKA: per Ortho. 2. Afib: Stable. Continue Metoprolol. Continue Coumadin. Monitor INR and electrolytes. Hypomagnesemia, replaced with 2 gm IV today again. 3. DM type 2:BS controlled. Holding Metformin may restart upon discharge. Novolog SSI TIDAC. 4. CAD: Continue ASA, Atorvastatin, and Lisinopril. VTE prophylaxis: Coumadin and Lovenox.
--- NOTE | 2017-02-12 08:00 | PCM.SURGPN ---
- General Info Date of Service: 02/12/17 Date of Surgery/Procedure: 02/10/17 POD#: 2 Functional Status: Reports: pain controlled, tolerating diet, ambulating, urinating - Review of Systems General: Reports: No Symptoms Pulmonary: Reports: no symptoms Cardiovascular: Reports: No Symptoms Gastrointestinal: Reports: Other (GERD) Genitourinary: Reports: no symptoms Musculoskeletal: Reports: leg pain, joint pain, joint swelling Neurological: Reports: No Symptoms Psychiatric: Reports: no symptoms - Patient Data Vitals - most recent: Last Vital Signs Temp 37.2 C 02/12/17 04:00 Pulse 88 02/12/17 04:00 Resp 20 02/12/17 04:00 BP 115/55 L 02/12/17 04:00 Pulse Ox 95 02/12/17 04:00 Weight - most recent: 89.811 kg I&O - last 24 hours: Intake & Output 02/11/17 02/12/17 02/12/17 22:59 06:59 14:59 Intake Total 1400 1100 Output Total 2000 1900 Balance -600 -800 Lab Results last 24 hrs: Laboratory Results - last 24 hr 02/11/17 02/11/17 02/12/17 Range/Units 11:38 16:22 04:44 WBC 10.42 (4.0-11.0) K/uL RBC 3.01 L (4.50-5.90) M/uL Hgb 9.1 L (13.0-17.0) g/dL Hct 26.4 L (38.0-50.0) % MCV 87.7 (80.0-98.0) fL MCH 30.2 (27.0-32.0) pg MCHC 34.5 (31.0-37.0) g/dL RDW Std Deviation 44.1 (28.0-62.0) fl RDW Coeff of Natalie 14 (11.0-15.0) % Plt Count 171 (150-400) K/uL MPV 9.30 (7.40-12.00) fL Add Manual Diff YES Neutrophils % (Manual) 75 (48.0-80.0) % Band Neutrophils % 3 % Lymphocytes % (Manual) 10 L (16.0-40.0) % Monocytes % (Manual) 10 (0.0-15.0) % Eosinophils % (Manual) 1 (0.0-7.0) % Basophils % (Manual) 1 (0.0-1.5) % Nucleated RBC % 0.0 /100WBC Absolute Seg Neuts 7.8 Band Neutrophils # 0.3 Lymphocytes # (Manual) 1.0 Monocytes # (Manual) 1.0 Eosinophils # (Manual) 0.1 Basophils # (Manual) 0 Nucleated RBCs # 0 K/uL Sodium (136-146) mmol/L Potassium (3.5-5.1) mmol/L Chloride (98-110) mmol/L Carbon Dioxide (21-31) mmol/L BUN (6.0-23.0) mg/dL Creatinine (0.6-1.5) mg/dL Est Cr Clr Drug Dosing mL/min Estimated GFR (MDRD) ml/min Glucose (60-110) mg/dL POC Glucose 136 H 169 H (60-110) mg/dL Calcium (8.8-10.8) mg/dL Magnesium (1.5-2.3) mEq/L 02/12/17 02/12/17 Range/Units 04:44 06:22 WBC (4.0-11.0) K/uL RBC (4.50-5.90) M/uL Hgb (13.0-17.0) g/dL Hct (38.0-50.0) % MCV (80.0-98.0) fL MCH (27.0-32.0) pg MCHC (31.0-37.0) g/dL RDW Std Deviation (28.0-62.0) fl RDW Coeff of Natalie (11.0-15.0) % Plt Count (150-400) K/uL MPV (7.40-12.00) fL Add Manual Diff Neutrophils % (Manual) (48.0-80.0) % Band Neutrophils % % Lymphocytes % (Manual) (16.0-40.0) % Monocytes % (Manual) (0.0-15.0) % Eosinophils % (Manual) (0.0-7.0) % Basophils % (Manual) (0.0-1.5) % Nucleated RBC % /100WBC Absolute Seg Neuts Band Neutrophils # Lymphocytes # (Manual) Monocytes # (Manual) Eosinophils # (Manual) Basophils # (Manual) Nucleated RBCs # K/uL Sodium 129 L (136-146) mmol/L Potassium 4.4 (3.5-5.1) mmol/L Chloride 99 (98-110) mmol/L Carbon Dioxide 20 L (21-31) mmol/L BUN 10 (6.0-23.0) mg/dL Creatinine 0.8 (0.6-1.5) mg/dL Est Cr Clr Drug Dosing 74.59 mL/min Estimated GFR (MDRD) > 60.0 ml/min Glucose 136 H (60-110) mg/dL POC Glucose 149 H (60-110) mg/dL Calcium 8.0 L (8.8-10.8) mg/dL Magnesium 1.6 (1.5-2.3) mEq/L Med Orders - Current: Current Medications Acetaminophen (Tylenol Extra Strength) 1,000 mg PO Q6H [facility] Last Admin: 02/12/17 04:21 Dose: 1,000 mg Al Hydroxide/Mg Hydroxide (Mag-Al Plus) 30 ml PO Q4H PRN PRN Reason: Abdominal Pain Last Admin: 02/11/17 19:24 Dose: 30 ml Aspirin (Aspirin) 81 mg PO DAILY [facility] Last Admin: 02/11/17 08:28 Dose: 81 mg Atorvastatin Calcium (Lipitor) 40 mg PO DAILY [facility] Last Admin: 02/11/17 08:28 Dose: 40 mg Bisacodyl (Dulcolax) 10 mg RECTAL DAILY PRN PRN Reason: Constipation Diphenhydramine HCl (Benadryl) 25 - 50 mg PO Q6H PRN PRN Reason: Itching Docusate Sodium (Colace) 100 mg PO BID [facility] Last Admin: 02/11/17 20:38 Dose: 100 mg Enoxaparin Sodium (Lovenox) 40 mg SUBCUT DAILY [facility] Last Admin: 02/11/17 08:29 Dose: 40 mg Hydromorphone HCl (Dilaudid) 0.5 - 1 mg IVPUSH Q3H PRN PRN Reason: Pain Magnesium Sulfate 2 gm/ Premix 50 mls @ 50 mls/hr IV ONETIME ONE Stop: 02/12/17 08:45 Insulin Aspart (Novolog) 0 unit SUBCUT TIDAC [facility] PRN Reason: Protocol Last Admin: 02/12/17 06:35 Dose: Not Given Lisinopril (Prinivil) 5 mg PO BEDTIME [facility] Last Admin: 02/11/17 20:39 Dose: 5 mg Metoprolol Tartrate (Lopressor) 25 mg PO BID [facility] Last Admin: 02/11/17 20:39 Dose: 25 mg Ondansetron HCl (Zofran) 4 mg IV Q6HR PRN PRN Reason: NAUSEA/VOMITING Last Admin: 02/11/17 20:47 Dose: 4 mg Oxycodone HCl (Oxycodone) 5 - 10 mg PO Q4H PRN PRN Reason: Pain Last Admin: 02/12/17 06:55 Dose: 10 mg Sodium Chloride (Saline Flush) 10 ml FLUSH ASDIRECTED PRN PRN Reason: Keep Vein Open Sodium Chloride (Saline Flush) 2.5 ml FLUSH ASDIRECTED PRN PRN Reason: Keep Vein Open Warfarin Sodium (Coumadin) 7.5 mg PO DAILY@1400 [facility] Last Admin: 02/11/17 13:23 Dose: 7.5 mg Discontinued Medications Acetaminophen (Tylenol Extra Strength) 1,000 mg PO ONARRIVE [facility] Last Admin: 02/10/17 07:34 Dose: 1,000 mg Calcium Carbonate/Glycine (Tums) 1,000 mg PO ONETIME ONE Stop: 02/11/17 07:50 Last Admin: 02/11/17 08:25 Dose: 1,000 mg Famotidine (Pepcid) 40 mg IVPUSH ONARRIVE [facility] Last Admin: 02/10/17 07:34 Dose: 40 mg Fentanyl (Sublimaze) Confirm Administered Dose 100 mcg .ROUTE .STK-MED ONE Stop: 02/10/17 08:33 Fentanyl (Sublimaze) Confirm Administered Dose 100 mcg .ROUTE .STK-MED ONE Stop: 02/10/17 11:34 Ropivacaine 49.25 ml/Epinephrine HCl 0.5 mg/Clonidine HCl 80 mcg/ Sodium Chloride 99 mls @ 50 mls/min INJECT ONETIME ONE Stop: 02/10/17 06:01 Clindamycin Phosphate 900 mg/ (Premix) 50 mls @ 100 mls/hr IV ONCALL [facility] Last Admin: 02/10/17 07:35 Dose: 100 mls/hr Ropivacaine 49.25 ml/Ketorolac Tromethamine 30 mg/Epinephrine HCl 0.5 mg/ Clonidine HCl 80 mcg/ Sodium Chloride 100 mls @ 50 mls/min INJECT ONETIME ONE Stop: 02/10/17 06:01 Last Admin: 02/10/17 20:07 Dose: Not Given Lactated Ringer's (Ringers, Lactated) 1,000 mls @ 100 mls/hr IV ASDIRECTED [facility] Last Admin: 02/11/17 02:55 Dose: 100 mls/hr Clindamycin Phosphate 900 mg/ (Premix) 50 mls @ 100 mls/hr IV Q8H [facility] Clindamycin Phosphate 900 mg/ (Premix) 50 mls @ 100 mls/hr IV ONCALL [facility] Stop: 02/11/17 19:29 Clindamycin Phosphate 900 mg/ (Premix) 50 mls @ 100 mls/hr IV Q8H [facility] Stop: 02/11/17 03:29 Last Admin: 02/11/17 02:56 Dose: 100 mls/hr Magnesium Sulfate 4 gm/ Premix 100 mls @ 50 mls/hr IV ONETIME ONE Stop: 02/10/17 16:38 Last Admin: 02/10/17 14:59 Dose: 50 mls/hr Magnesium Sulfate 2 gm/ Premix 50 mls @ 50 mls/hr IV ONETIME ONE Stop: 02/11/17 08:59 Last Admin: 02/11/17 08:25 Dose: 50 mls/hr Lidocaine (Xylocaine-Mpf 2%) Confirm Administered Dose 5 ml .ROUTE .STK-MED ONE Stop: 02/10/17 08:32 Lisinopril (Prinivil) 5 mg PO DAILY [facility] Midazolam HCl (Versed 1 Mg/Ml) Confirm Administered Dose 2 mg .ROUTE .STK-MED ONE Stop: 02/10/17 08:33 Ondansetron HCl (Zofran) Confirm Administered Dose 4 mg .ROUTE .STK-MED ONE Stop: 02/10/17 08:33 Liraglutide 1.8 Mg 1.8 each SUBCUT DAILY [facility] Last Admin: 02/11/17 09:20 Dose: Not Given Phenylephrine HCl (Phenylephrine In Ns 100 Mcg/Ml) Confirm Administered Dose 1 mg .ROUTE .STK-MED ONE Stop: 02/10/17 11:46 Propofol (Diprivan 20 Ml) Confirm Administered Dose 600 mg .ROUTE .STK-MED ONE Stop: 02/10/17 08:33 Propofol (Diprivan 20 Ml) Confirm Administered Dose 200 mg .ROUTE .STK-MED ONE Stop: 02/10/17 12:01 Scopolamine ([facility]m-[facility]op) [facility] Admin: 02/10/17 07:34 Dose: 1.5 mg Tranexamic Acid (Cyklokapron) 4,000 mg IV SEECOMMENT [facility] Tranexamic Acid (Cyklokapron) Confirm Administered Dose 4,000 mg .ROUTE .STK- MED ONE Stop: 02/10/17 07:31 - Exam Wound/Incisions: dressing dry and intact (Dressing changed today.) General: alert, oriented HEENT: Pupils equal, Pupils reactive Neck: trachea midline Lungs: Normal respiratory effort Cardiovascular: Regular Rate Extremities: other (Left anterior tibialis, extensor hallucis longus and gastrocnemius strength +5/5 bilaterally. Sensation intact. Dorsalis pedis and posterior tibial pulses +2 bilaterally.) Neurological: no new focal deficit Psy/Mental Status: alert, normal affect, normal mood - Problem List Review Problem List Initiated/Reviewed/Updated: Yes - My Orders Last 24 Hours: Active Orders 24 hr Category Date Time Status Communication Order [RC] PRN Care 02/11/17 13:48 Active Communication Order [RC] PRN Care 02/11/17 18:29 Active Clinton Catheter Insertion [Insert Urinary Catheter] [OM. Care 02/11/17 17:00 Ordered PC] Q24H Remove Clinton Catheter [Urinary Catheter Removal] [RC] Care 02/11/17 07:56 Active Per Unit Routine Urinary Catheter Assessment [RC] ASDIRECTED Care 02/11/17 17:27 Active BASIC METABOLIC PANEL,BMP [CHEM] DAILY Lab 02/13/17 05:00 Ordered CBC WITH AUTO DIFF [HEME] DAILY Lab 02/13/17 05:00 Ordered MAGNESIUM [CHEM] DAILY Lab 02/13/17 05:00 Ordered Alum Hydrox/Mag Hydrox/Simeth [Mag-Al Plus] Med 02/11/17 17:45 Active 30 ml PO Q4H PRN Aspirin Med 02/11/17 09:00 Active 81 mg PO DAILY Enoxaparin [Lovenox] Med 02/11/17 09:00 Active 40 mg SUBCUT DAILY Magnesium Sulfate/Water [Magnesium Sulfate 2 GM in Med 02/12/17 07:46 Ordered Water 50 ML] 2 gm Premix Bag 1 bag IV ONETIME Sodium Chloride 0.9% [Saline Flush] Med 02/11/17 07:56 Active 10 ml FLUSH ASDIRECTED PRN Sodium Chloride 0.9% [Saline Flush] Med 02/11/17 07:56 Active 2.5 ml FLUSH ASDIRECTED PRN Warfarin [Coumadin] Med 02/11/17 14:00 Active 7.5 mg PO DAILY@1400 atorvaSTATin [Lipitor] Med 02/11/17 09:00 Active 40 mg PO DAILY Convert IV to Saline Lock [OM.PC] Routine Oth 02/11/17 07:56 Ordered Medication Orders Acetaminophen (Tylenol Extra Strength) 1,000 mg PO Q6H [facility] Last Admin: 02/12/17 04:21 Dose: 1,000 mg Admin: 02/11/17 22:59 Dose: 1,000 mg Admin: 02/11/17 17:15 Dose: 1,000 mg Admin: 02/11/17 10:16 Dose: 1,000 mg Admin: 02/11/17 02:59 Dose: 1,000 mg Admin: 02/10/17 21:46 Dose: 1,000 mg Admin: 02/10/17 15:47 Dose: 1,000 mg Al Hydroxide/Mg Hydroxide (Mag-Al Plus) 30 ml PO Q4H PRN PRN Reason: Abdominal Pain Last Admin: 02/11/17 19:24 Dose: 30 ml Aspirin (Aspirin) 81 mg PO DAILY [facility] Last Admin: 02/11/17 08:28 Dose: 81 mg Atorvastatin Calcium (Lipitor) 40 mg PO DAILY [facility] Last Admin: 02/11/17 08:28 Dose: 40 mg Bisacodyl (Dulcolax) 10 mg RECTAL DAILY PRN PRN Reason: Constipation Diphenhydramine HCl (Benadryl) 25 - 50 mg PO Q6H PRN PRN Reason: Itching Docusate Sodium (Colace) 100 mg PO BID [facility] Last Admin: 02/11/17 20:38 Dose: 100 mg Admin: 02/11/17 08:28 Dose: 100 mg Admin: 02/10/17 21:47 Dose: 100 mg Enoxaparin Sodium (Lovenox) 40 mg SUBCUT DAILY [facility] Last Admin: 02/11/17 08:29 Dose: 40 mg Hydromorphone HCl (Dilaudid) 0.5 - 1 mg IVPUSH Q3H PRN PRN Reason: Pain Magnesium Sulfate 2 gm/ Premix 50 mls @ 50 mls/hr IV ONETIME ONE Stop: 02/12/17 08:45 Insulin Aspart (Novolog) 0 unit SUBCUT TIDAC [facility] PRN Reason: Protocol Last Admin: 02/12/17 06:35 Dose: Not Given Admin: 02/11/17 17:14 Dose: Admin: 02/11/17 12:31 Dose: Admin: 02/11/17 07:14 Dose: Not Given Admin: 02/10/17 16:57 Dose: 1 unit Lisinopril (Prinivil) 5 mg PO BEDTIME [facility] Last Admin: 02/11/17 20:39 Dose: 5 mg Admin: 02/10/17 21:52 Dose: Not Given Metoprolol Tartrate (Lopressor) 25 mg PO BID [facility] Last Admin: 02/11/17 20:39 Dose: 25 mg Admin: 02/11/17 08:29 Dose: 25 mg Admin: 02/10/17 21:52 Dose: Not Given Ondansetron HCl (Zofran) 4 mg IV Q6HR PRN PRN Reason: NAUSEA/VOMITING Last Admin: 02/11/17 20:47 Dose: 4 mg Admin: 02/11/17 12:29 Dose: 4 mg Oxycodone HCl (Oxycodone) 5 - 10 mg PO Q4H PRN PRN Reason: Pain Last Admin: 02/12/17 06:55 Dose: 10 mg Admin: 02/11/17 12:29 Dose: 10 mg Admin: 02/11/17 08:43 Dose: 10 mg Admin: 02/11/17 04:40 Dose: 10 mg Admin: 02/11/17 00:08 Dose: 10 mg Admin: 02/10/17 17:53 Dose: 5 mg Sodium Chloride (Saline Flush) 10 ml FLUSH ASDIRECTED PRN PRN Reason: Keep Vein Open Sodium Chloride (Saline Flush) 2.5 ml FLUSH ASDIRECTED PRN PRN Reason: Keep Vein Open Warfarin Sodium (Coumadin) 7.5 mg PO DAILY@1400 [facility] Last Admin: 02/11/17 13:23 Dose: 7.5 mg - Assessment Assessment (Free Text/Narrative):: Patient up to chair this AM Pain controlled Tolerating diet Patient was able to urinate after straight cath yesterday, he urinated this AM Did complain of some reflux yesterday, has since resolved today Hgb 9.1 UO 3900 mL VSS - Plan Plan (Free Text/Narrative):: Continue pain management Continue PT, encourage ambulation Possible D/C home this afternoon
[2017-02-12] MEDS: Enoxaparin 40 MG/0.4 ML Syringe SUBCUT SCH (08:47)
[2017-02-12] MEDS: Docusate Sodium 100 MG Cap PO SCH ×2 (08:47→21:40)
[2017-02-12] MEDS: Aspirin 81 MG Tab.Chew PO SCH (08:47)
[2017-02-12] MEDS: Metoprolol Tartrate 25 MG Tab PO SCH ×2 (08:48→21:41)
[2017-02-12] MEDS: atorvaSTATin 40 MG Tab PO SCH (08:58)
[2017-02-12] MEDS: Aluminum Hydroxide/Magnesium Hydroxide/Simethicone Susp 30 ML Cup PO PRN ×2 (11:55→17:29)
--- NOTE | 2017-02-12 13:44 | PCM.SN ---
- Free Text/Narrative Note: Patient seen and examined. Agree with Demian note. Patient still with some pain when up. Slowly progressing with PT. Hgb stable. Na trending downward. No other complaints today. VSS, afeb. Dressing intact. NVI. Plan to keep additional day for pain management and further PT. Plan to recheck BMP in am. If he is doing ok, will plan to discharge home tomorrow. Patient agrees with plan.
[2017-02-12] MEDS: Warfarin 5 MG Tab PO SCH (13:49)
[2017-02-12] MEDS: Lisinopril 5 MG Tab PO SCH (21:41)
[2017-02-13] MEDS: oxyCODONE 5 MG Tab PO PRN ×2 (01:23→08:43)
[2017-02-13] MEDS: Acetaminophen 500 MG Tab PO SCH ×2 (04:42→09:08)
[2017-02-13 06:03] LABS: CHLORIDE,CL 98 mmol/L (98-110); SODIUM,NA 130 mmol/L (136-146)
[2017-02-13] MEDS: Aluminum Hydroxide/Magnesium Hydroxide/Simethicone Susp 30 ML Cup PO PRN (06:07)
[2017-02-13] MEDS: Insulin Aspart 100 Units/ML 3 ML Pen SUBCUT SCH ×2 (06:34→11:51)
--- NOTE | 2017-02-13 07:30 | PCM.SURGPN ---
- General Info Date of Service: 02/13/17 Date of Surgery/Procedure: 02/10/17 POD#: 3 Functional Status: Reports: pain controlled, tolerating diet, ambulating, urinating - Review of Systems General: Reports: No Symptoms Pulmonary: Reports: no symptoms Cardiovascular: Reports: No Symptoms Gastrointestinal: Reports: No symptoms Genitourinary: Reports: no symptoms Musculoskeletal: Reports: leg pain, joint pain, joint swelling Neurological: Reports: No Symptoms Psychiatric: Reports: no symptoms - Patient Data Vitals - most recent: Last Vital Signs Temp 37.6 C 02/13/17 03:18 Pulse 92 02/13/17 03:18 Resp 20 02/13/17 03:18 BP 109/59 L 02/13/17 03:18 Pulse Ox 91 L 02/13/17 03:18 Weight - most recent: 89.811 kg I&O - last 24 hours: Intake & Output 02/12/17 02/13/17 02/13/17 22:59 06:59 14:59 Intake Total 1290 Output Total 1200 Balance 90 Lab Results last 24 hrs: Laboratory Results - last 24 hr 02/12/17 02/12/17 02/13/17 Range/Units 11:49 16:40 05:15 WBC 12.41 H (4.0-11.0) K/uL RBC 2.91 L (4.50-5.90) M/uL Hgb 8.6 L (13.0-17.0) g/dL Hct 25.5 L (38.0-50.0) % MCV 87.6 (80.0-98.0) fL MCH 29.6 (27.0-32.0) pg MCHC 33.7 (31.0-37.0) g/dL RDW Std Deviation 45.3 (28.0-62.0) fl RDW Coeff of Natalie 14 (11.0-15.0) % Plt Count 186 (150-400) K/uL MPV 8.90 (7.40-12.00) fL Neut % (Auto) 77.3 (48.0-80.0) % Lymph % (Auto) 9.5 L (16.0-40.0) % [place] % (Auto) 12.7 (0.0-15.0) % Eos % (Auto) 0.3 (0.0-7.0) % Baso % (Auto) 0.2 (0.0-1.5) % Neut # (Auto) 9.6 H (1.4-5.7) K/uL Lymph # (Auto) 1.2 (0.6-2.4) K/uL [place] # (Auto) 1.6 H (0.0-0.8) K/uL Eos # (Auto) 0.0 (0.0-0.7) K/uL Baso # (Auto) 0.0 (0.0-0.1) K/uL Nucleated RBC % 0.0 /100WBC Nucleated RBCs # 0 K/uL INR (0.86-1.11) Sodium (136-146) mmol/L Potassium (3.5-5.1) mmol/L Chloride (98-110) mmol/L Carbon Dioxide (21-31) mmol/L BUN (6.0-23.0) mg/dL Creatinine (0.6-1.5) mg/dL Est Cr Clr Drug Dosing mL/min Estimated GFR (MDRD) ml/min Glucose (60-110) mg/dL POC Glucose 137 H 152 H (60-110) mg/dL Calcium (8.8-10.8) mg/dL Magnesium (1.5-2.3) mEq/L 02/13/17 02/13/17 02/13/17 Range/Units 05:15 05:15 06:03 WBC (4.0-11.0) K/uL RBC (4.50-5.90) M/uL Hgb (13.0-17.0) g/dL Hct (38.0-50.0) % MCV (80.0-98.0) fL MCH (27.0-32.0) pg MCHC (31.0-37.0) g/dL RDW Std Deviation (28.0-62.0) fl RDW Coeff of Natalie (11.0-15.0) % Plt Count (150-400) K/uL MPV (7.40-12.00) fL Neut % (Auto) (48.0-80.0) % Lymph % (Auto) (16.0-40.0) % [place] % (Auto) (0.0-15.0) % Eos % (Auto) (0.0-7.0) % Baso % (Auto) (0.0-1.5) % Neut # (Auto) (1.4-5.7) K/uL Lymph # (Auto) (0.6-2.4) K/uL [place] # (Auto) (0.0-0.8) K/uL Eos # (Auto) (0.0-0.7) K/uL Baso # (Auto) (0.0-0.1) K/uL Nucleated RBC % /100WBC Nucleated RBCs # K/uL INR 1.15 H (0.86-1.11) Sodium 130 L (136-146) mmol/L Potassium 4.9 (3.5-5.1) mmol/L Chloride 98 (98-110) mmol/L Carbon Dioxide 23 (21-31) mmol/L BUN 9 (6.0-23.0) mg/dL Creatinine 0.8 (0.6-1.5) mg/dL Est Cr Clr Drug Dosing 74.59 mL/min Estimated GFR (MDRD) > 60.0 ml/min Glucose 146 H (60-110) mg/dL POC Glucose 143 H (60-110) mg/dL Calcium 8.2 L (8.8-10.8) mg/dL Magnesium 1.6 (1.5-2.3) mEq/L Med Orders - Current: Current Medications Acetaminophen (Tylenol Extra Strength) 1,000 mg PO Q6H [facility] Last Admin: 02/13/17 04:42 Dose: 1,000 mg Al Hydroxide/Mg Hydroxide (Mag-Al Plus) 30 ml PO Q4H PRN PRN Reason: Abdominal Pain Last Admin: 02/13/17 06:07 Dose: 30 ml Aspirin (Aspirin) 81 mg PO DAILY [facility] Last Admin: 02/12/17 08:47 Dose: 81 mg Atorvastatin Calcium (Lipitor) 40 mg PO DAILY [facility] Last Admin: 02/12/17 08:58 Dose: 40 mg Bisacodyl (Dulcolax) 10 mg RECTAL DAILY PRN PRN Reason: Constipation Diphenhydramine HCl (Benadryl) 25 - 50 mg PO Q6H PRN PRN Reason: Itching Docusate Sodium (Colace) 100 mg PO BID [facility] Last Admin: 02/12/17 21:40 Dose: 100 mg Enoxaparin Sodium (Lovenox) 40 mg SUBCUT DAILY [facility] Last Admin: 02/12/17 08:47 Dose: 40 mg Hydromorphone HCl (Dilaudid) 0.5 - 1 mg IVPUSH Q3H PRN PRN Reason: Pain Last Admin: 02/12/17 09:47 Dose: 0.5 mg Insulin Aspart (Novolog) 0 unit SUBCUT TIDAC [facility] PRN Reason: Protocol Last Admin: 02/13/17 06:34 Dose: Not Given Lisinopril (Prinivil) 5 mg PO BEDTIME [facility] Last Admin: 02/12/17 21:41 Dose: 5 mg Metoprolol Tartrate (Lopressor) 25 mg PO BID [facility] Last Admin: 02/12/17 21:41 Dose: 25 mg Ondansetron HCl (Zofran) 4 mg IV Q6HR PRN PRN Reason: NAUSEA/VOMITING Last Admin: 02/11/17 20:47 Dose: 4 mg Oxycodone HCl (Oxycodone) 5 - 10 mg PO Q4H PRN PRN Reason: Pain Last Admin: 02/13/17 01:23 Dose: 10 mg Sodium Chloride (Saline Flush) 10 ml FLUSH ASDIRECTED PRN PRN Reason: Keep Vein Open Sodium Chloride (Saline Flush) 2.5 ml FLUSH ASDIRECTED PRN PRN Reason: Keep Vein Open Warfarin Sodium (Coumadin) 7.5 mg PO DAILY@1400 [facility] Last Admin: 02/12/17 13:49 Dose: 7.5 mg Discontinued Medications Acetaminophen (Tylenol Extra Strength) 1,000 mg PO ONARRIVE [facility] Last Admin: 02/10/17 07:34 Dose: 1,000 mg Calcium Carbonate/Glycine (Tums) 1,000 mg PO ONETIME ONE Stop: 02/11/17 07:50 Last Admin: 02/11/17 08:25 Dose: 1,000 mg Famotidine (Pepcid) 40 mg IVPUSH ONARRIVE [facility] Last Admin: 02/10/17 07:34 Dose: 40 mg Fentanyl (Sublimaze) Confirm Administered Dose 100 mcg .ROUTE .STK-MED ONE Stop: 02/10/17 08:33 Fentanyl (Sublimaze) Confirm Administered Dose 100 mcg .ROUTE .STK-MED ONE Stop: 02/10/17 11:34 Ropivacaine 49.25 ml/Epinephrine HCl 0.5 mg/Clonidine HCl 80 mcg/ Sodium Chloride 99 mls @ 50 mls/min INJECT ONETIME ONE Stop: 02/10/17 06:01 Clindamycin Phosphate 900 mg/ (Premix) 50 mls @ 100 mls/hr IV ONCALL [facility] Last Admin: 02/10/17 07:35 Dose: 100 mls/hr Ropivacaine 49.25 ml/Ketorolac Tromethamine 30 mg/Epinephrine HCl 0.5 mg/ Clonidine HCl 80 mcg/ Sodium Chloride 100 mls @ 50 mls/min INJECT ONETIME ONE Stop: 02/10/17 06:01 Last Admin: 02/10/17 20:07 Dose: Not Given Lactated Ringer's (Ringers, Lactated) 1,000 mls @ 100 mls/hr IV ASDIRECTED [facility] Last Admin: 02/11/17 02:55 Dose: 100 mls/hr Clindamycin Phosphate 900 mg/ (Premix) 50 mls @ 100 mls/hr IV Q8H [facility] Clindamycin Phosphate 900 mg/ (Premix) 50 mls @ 100 mls/hr IV ONCALL [facility] Stop: 02/11/17 19:29 Clindamycin Phosphate 900 mg/ (Premix) 50 mls @ 100 mls/hr IV Q8H [facility] Stop: 02/11/17 03:29 Last Admin: 02/11/17 02:56 Dose: 100 mls/hr Magnesium Sulfate 4 gm/ Premix 100 mls @ 50 mls/hr IV ONETIME ONE Stop: 02/10/17 16:38 Last Admin: 02/10/17 14:59 Dose: 50 mls/hr Magnesium Sulfate 2 gm/ Premix 50 mls @ 50 mls/hr IV ONETIME ONE Stop: 02/11/17 08:59 Last Admin: 02/11/17 08:25 Dose: 50 mls/hr Magnesium Sulfate 2 gm/ Premix 50 mls @ 50 mls/hr IV ONETIME ONE Stop: 02/12/17 08:45 Last Admin: 02/12/17 08:43 Dose: 50 mls/hr Lidocaine (Xylocaine-Mpf 2%) Confirm Administered Dose 5 ml .ROUTE .STK-MED ONE Stop: 02/10/17 08:32 Lisinopril (Prinivil) 5 mg PO DAILY [facility] Midazolam HCl (Versed 1 Mg/Ml) Confirm Administered Dose 2 mg .ROUTE .STK-MED ONE Stop: 02/10/17 08:33 Ondansetron HCl (Zofran) Confirm Administered Dose 4 mg .ROUTE .STK-MED ONE Stop: 02/10/17 08:33 Liraglutide 1.8 Mg 1.8 each SUBCUT DAILY [facility] Last Admin: 02/11/17 09:20 Dose: Not Given Phenylephrine HCl (Phenylephrine In Ns 100 Mcg/Ml) Confirm Administered Dose 1 mg .ROUTE .STK-MED ONE Stop: 02/10/17 11:46 Propofol (Diprivan 20 Ml) Confirm Administered Dose 600 mg .ROUTE .STK-MED ONE Stop: 02/10/17 08:33 Propofol (Diprivan 20 Ml) Confirm Administered Dose 200 mg .ROUTE .STK-MED ONE Stop: 02/10/17 12:01 Scopolamine (Transderm-Scop) 1.5 mg TRDERM ONARRIVE [facility] Last Admin: 02/10/17 07:34 Dose: 1.5 mg Tranexamic Acid (Cyklokapron) 4,000 mg IV SEECOMMENT [facility] Tranexamic Acid (Cyklokapron) Confirm Administered Dose 4,000 mg .ROUTE .[facility] ONE Stop: 02/10/17 07:31 - Exam Wound/Incisions: dressing dry and intact General: alert, oriented HEENT: Pupils equal, Pupils reactive Neck: trachea midline Lungs: Normal respiratory effort Cardiovascular: Regular Rate Extremities: other (Left anterior tibialis, extensor hallucis longus and gastrocnemius strength +5/5 bilaterally. Sensation intact. Dorsalis pedis and posterior tibial pulses +2 bilaterally. ) Neurological: no new focal deficit Psy/Mental Status: alert, normal affect, normal mood - Problem List Review Problem List Initiated/Reviewed/Updated: Yes - My Orders Last 24 Hours: Medication Orders Acetaminophen (Tylenol Extra Strength) 1,000 mg PO Q6H [facility] Last Admin: 02/13/17 04:42 Dose: 1,000 mg Admin: 02/12/17 21:42 Dose: 1,000 mg Admin: 02/12/17 16:17 Dose: 1,000 mg Admin: 02/12/17 09:08 Dose: 1,000 mg Admin: 02/12/17 04:21 Dose: 1,000 mg Admin: 02/11/17 22:59 Dose: 1,000 mg Admin: 02/11/17 17:15 Dose: 1,000 mg Admin: 02/11/17 10:16 Dose: 1,000 mg Admin: 02/11/17 02:59 Dose: 1,000 mg Admin: 02/10/17 21:46 Dose: 1,000 mg Admin: 02/10/17 15:47 Dose: 1,000 mg Al Hydroxide/Mg Hydroxide (Mag-Al Plus) 30 ml PO Q4H PRN PRN Reason: Abdominal Pain Last Admin: 02/13/17 06:07 Dose: 30 ml Admin: 02/12/17 17:29 Dose: 30 ml Admin: 02/12/17 11:55 Dose: 30 ml Admin: 02/11/17 19:24 Dose: 30 ml Aspirin (Aspirin) 81 mg PO DAILY [facility] Last Admin: 02/12/17 08:47 Dose: 81 mg Admin: 02/11/17 08:28 Dose: 81 mg Atorvastatin Calcium (Lipitor) 40 mg PO DAILY [facility] Last Admin: 02/12/17 08:58 Dose: 40 mg Admin: 02/11/17 08:28 Dose: 40 mg Bisacodyl (Dulcolax) 10 mg RECTAL DAILY PRN PRN Reason: Constipation Diphenhydramine HCl (Benadryl) 25 - 50 mg PO Q6H PRN PRN Reason: Itching Docusate Sodium (Colace) 100 mg PO BID [facility] Last Admin: 02/12/17 21:40 Dose: 100 mg Admin: 02/12/17 08:47 Dose: 100 mg Admin: 02/11/17 20:38 Dose: 100 mg Admin: 02/11/17 08:28 Dose: 100 mg Admin: 02/10/17 21:47 Dose: 100 mg Enoxaparin Sodium (Lovenox) 40 mg SUBCUT DAILY [facility] Last Admin: 02/12/17 08:47 Dose: 40 mg Admin: 02/11/17 08:29 Dose: 40 mg Hydromorphone HCl (Dilaudid) 0.5 - 1 mg IVPUSH Q3H PRN PRN Reason: Pain Last Admin: 02/12/17 09:47 Dose: 0.5 mg Insulin Aspart (Novolog) 0 unit SUBCUT TIDAC [facility] PRN Reason: Protocol Last Admin: 02/13/17 06:34 Dose: Not Given Admin: 02/12/17 17:30 Dose: Not Given Admin: 02/12/17 11:55 Dose: Admin: 02/12/17 06:35 Dose: Not Given Admin: 02/11/17 17:14 Dose: Admin: 02/11/17 12:31 Dose: Admin: 02/11/17 07:14 Dose: Not Given Admin: 02/10/17 16:57 Dose: 1 unit Lisinopril (Prinivil) 5 mg PO BEDTIME [facility] Last Admin: 02/12/17 21:41 Dose: 5 mg Admin: 02/11/17 20:39 Dose: 5 mg Admin: 02/10/17 21:52 Dose: Not Given Metoprolol Tartrate (Lopressor) 25 mg PO BID [facility] Last Admin: 02/12/17 21:41 Dose: 25 mg Admin: 02/12/17 08:48 Dose: 25 mg Admin: 02/11/17 20:39 Dose: 25 mg Admin: 02/11/17 08:29 Dose: 25 mg Admin: 02/10/17 21:52 Dose: Not Given Ondansetron HCl (Zofran) 4 mg IV Q6HR PRN PRN Reason: NAUSEA/VOMITING Last Admin: 02/11/17 20:47 Dose: 4 mg Admin: 02/11/17 12:29 Dose: 4 mg Oxycodone HCl (Oxycodone) 5 - 10 mg PO Q4H PRN PRN Reason: Pain Last Admin: 02/13/17 01:23 Dose: 10 mg Admin: 02/12/17 16:16 Dose: 10 mg Admin: 02/12/17 12:05 Dose: 10 mg Admin: 02/12/17 06:55 Dose: 10 mg Admin: 02/11/17 12:29 Dose: 10 mg Admin: 02/11/17 08:43 Dose: 10 mg Admin: 02/11/17 04:40 Dose: 10 mg Admin: 02/11/17 00:08 Dose: 10 mg Admin: 02/10/17 17:53 Dose: 5 mg Sodium Chloride (Saline Flush) 10 ml FLUSH ASDIRECTED PRN PRN Reason: Keep Vein Open Sodium Chloride (Saline Flush) 2.5 ml FLUSH ASDIRECTED PRN PRN Reason: Keep Vein Open Warfarin Sodium (Coumadin) 7.5 mg PO DAILY@1400 [facility] Last Admin: 02/12/17 13:49 Dose: 7.5 mg Admin: 02/11/17 13:23 Dose: 7.5 mg - Assessment Assessment (Free Text/Narrative):: Patient up to chair this AM Tolerating diet Urinating Pain controlled Hgb 8.6 UO 1200 mL VSS Does report some GERD, no other complaints - Plan Plan (Free Text/Narrative):: Continue pain management this AM with PO pain medication Continue PT this AM D/C home today
--- NOTE | 2017-02-13 07:52 | PCM.CONSN ---
Addendum entered and electronically signed by Sarah Lemus NP 02/13/17 09: 27: Did contact Dr. Pandey regarding discharge today and order for INR check on Friday. He will follow. Original Note: - General Info Date of Service: 02/13/17 Admission Dx/Problem (Free Text): Admission Diagnosis/Problem Admission Diagnosis/Problem Replacement of total knee joint Subjective Update: Resting in bed this morning. Eager to go home today. Denies any chest pain or SOB. Is having some heartburn. 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 I did notifijosh Heart regarding this concern. Functional Status: Reports: pain controlled, tolerating diet, ambulating - Review of Systems General: Reports: No Symptoms. Denies: Fever HEENT: Reports: no symptoms Pulmonary: Reports: no symptoms. Denies: shortness of breath, cough, sputum Cardiovascular: Reports: No Symptoms. Denies: Chest Pain, Palpitations, Edema Gastrointestinal: Reports: Flatus, Other (heartburn). Denies: Abdominal pain, Nausea, Vomiting - Patient Data Vitals - most recent: Last Vital Signs Temp 99.7 F 02/13/17 03:18 Pulse 92 02/13/17 03:18 Resp 20 02/13/17 03:18 BP 109/59 L 02/13/17 03:18 Pulse Ox 91 L 02/13/17 03:18 Weight - most recent: 89.811 kg I&O - last 24 hours: Intake & Output 02/12/17 02/13/17 02/13/17 22:59 06:59 14:59 Intake Total 1290 Output Total 1200 Balance 90 Lab Results last 24 hrs: Laboratory Results - last 24 hr 02/12/17 02/12/17 02/13/17 Range/Units 11:49 16:40 05:15 WBC 12.41 H (4.0-11.0) K/uL RBC 2.91 L (4.50-5.90) M/uL Hgb 8.6 L (13.0-17.0) g/dL Hct 25.5 L (38.0-50.0) % MCV 87.6 (80.0-98.0) fL MCH 29.6 (27.0-32.0) pg MCHC 33.7 (31.0-37.0) g/dL RDW Std Deviation 45.3 (28.0-62.0) fl RDW Coeff of Natalie 14 (11.0-15.0) % Plt Count 186 (150-400) K/uL MPV 8.90 (7.40-12.00) fL Neut % (Auto) 77.3 (48.0-80.0) % Lymph % (Auto) 9.5 L (16.0-40.0) % Major % (Auto) 12.7 (0.0-15.0) % Eos % (Auto) 0.3 (0.0-7.0) % Baso % (Auto) 0.2 (0.0-1.5) % Neut # (Auto) 9.6 H (1.4-5.7) K/uL Lymph # (Auto) 1.2 (0.6-2.4) K/uL Major # (Auto) 1.6 H (0.0-0.8) K/uL Eos # (Auto) 0.0 (0.0-0.7) K/uL Baso # (Auto) 0.0 (0.0-0.1) K/uL Nucleated RBC % 0.0 /100WBC Nucleated RBCs # 0 K/uL INR (0.86-1.11) Sodium (136-146) mmol/L Potassium (3.5-5.1) mmol/L Chloride (98-110) mmol/L Carbon Dioxide (21-31) mmol/L BUN (6.0-23.0) mg/dL Creatinine (0.6-1.5) mg/dL Est Cr Clr Drug Dosing mL/min Estimated GFR (MDRD) ml/min Glucose (60-110) mg/dL POC Glucose 137 H 152 H (60-110) mg/dL Calcium (8.8-10.8) mg/dL Magnesium (1.5-2.3) mEq/L 02/13/17 02/13/17 02/13/17 Range/Units 05:15 05:15 06:03 WBC (4.0-11.0) K/uL RBC (4.50-5.90) M/uL Hgb (13.0-17.0) g/dL Hct (38.0-50.0) % MCV (80.0-98.0) fL MCH (27.0-32.0) pg MCHC (31.0-37.0) g/dL RDW Std Deviation (28.0-62.0) fl RDW Coeff of Natalie (11.0-15.0) % Plt Count (150-400) K/uL MPV (7.40-12.00) fL Neut % (Auto) (48.0-80.0) % Lymph % (Auto) (16.0-40.0) % Major % (Auto) (0.0-15.0) % Eos % (Auto) (0.0-7.0) % Baso % (Auto) (0.0-1.5) % Neut # (Auto) (1.4-5.7) K/uL Lymph # (Auto) (0.6-2.4) K/uL Major # (Auto) (0.0-0.8) K/uL Eos # (Auto) (0.0-0.7) K/uL Baso # (Auto) (0.0-0.1) K/uL Nucleated RBC % /100WBC Nucleated RBCs # K/uL INR 1.15 H (0.86-1.11) Sodium 130 L (136-146) mmol/L Potassium 4.9 (3.5-5.1) mmol/L Chloride 98 (98-110) mmol/L Carbon Dioxide 23 (21-31) mmol/L BUN 9 (6.0-23.0) mg/dL Creatinine 0.8 (0.6-1.5) mg/dL Est Cr Clr Drug Dosing 74.59 mL/min Estimated GFR (MDRD) > 60.0 ml/min Glucose 146 H (60-110) mg/dL POC Glucose 143 H (60-110) mg/dL Calcium 8.2 L (8.8-10.8) mg/dL Magnesium 1.6 (1.5-2.3) mEq/L Med Orders - Current: Current Medications Acetaminophen (Tylenol Extra Strength) 1,000 mg PO Q6H CHUY Last Admin: 02/13/17 04:42 Dose: 1,000 mg Al Hydroxide/Mg Hydroxide (Mag-Al Plus) 30 ml PO Q4H PRN PRN Reason: Abdominal Pain Last Admin: 02/13/17 06:07 Dose: 30 ml Aspirin (Aspirin) 81 mg PO DAILY [facility] Last Admin: 02/12/17 08:47 Dose: 81 mg Atorvastatin Calcium (Lipitor) 40 mg PO DAILY [facility] Last Admin: 02/12/17 08:58 Dose: 40 mg Bisacodyl (Dulcolax) 10 mg RECTAL DAILY PRN PRN Reason: Constipation Diphenhydramine HCl (Benadryl) 25 - 50 mg PO Q6H PRN PRN Reason: Itching Docusate Sodium (Colace) 100 mg PO BID [facility] Last Admin: 02/12/17 21:40 Dose: 100 mg Enoxaparin Sodium (Lovenox) 40 mg SUBCUT DAILY [facility] Last Admin: 02/12/17 08:47 Dose: 40 mg Hydromorphone HCl (Dilaudid) 0.5 - 1 mg IVPUSH Q3H PRN PRN Reason: Pain Last Admin: 02/12/17 09:47 Dose: 0.5 mg Insulin Aspart (Novolog) 0 unit SUBCUT TIDAC [facility] PRN Reason: Protocol Last Admin: 02/13/17 06:34 Dose: Not Given Lisinopril (Prinivil) 5 mg PO BEDTIME [facility] Last Admin: 02/12/17 21:41 Dose: 5 mg Metoprolol Tartrate (Lopressor) 25 mg PO BID [facility] Last Admin: 02/12/17 21:41 Dose: 25 mg Ondansetron HCl (Zofran) 4 mg IV Q6HR PRN PRN Reason: NAUSEA/VOMITING Last Admin: 02/11/17 20:47 Dose: 4 mg Oxycodone HCl (Oxycodone) 5 - 10 mg PO Q4H PRN PRN Reason: Pain Last Admin: 02/13/17 01:23 Dose: 10 mg Sodium Chloride (Saline Flush) 10 ml FLUSH ASDIRECTED PRN PRN Reason: Keep Vein Open Sodium Chloride (Saline Flush) 2.5 ml FLUSH ASDIRECTED PRN PRN Reason: Keep Vein Open Warfarin Sodium (Coumadin) 7.5 mg PO DAILY@1400 [facility] Last Admin: 02/12/17 13:49 Dose: 7.5 mg Discontinued Medications Acetaminophen (Tylenol Extra Strength) 1,000 mg PO ONARRIVE [facility] Last Admin: 02/10/17 07:34 Dose: 1,000 mg Calcium Carbonate/Glycine (Tums) 1,000 mg PO ONETIME ONE Stop: 02/11/17 07:50 Last Admin: 02/11/17 08:25 Dose: 1,000 mg Famotidine (Pepcid) 40 mg IVPUSH ONARRIVE [facility] Last Admin: 02/10/17 07:34 Dose: 40 mg Fentanyl (Sublimaze) Confirm Administered Dose 100 mcg .ROUTE .STK-MED ONE Stop: 02/10/17 08:33 Fentanyl (Sublimaze) Confirm Administered Dose 100 mcg .ROUTE .STK-MED ONE Stop: 02/10/17 11:34 Ropivacaine 49.25 ml/Epinephrine HCl 0.5 mg/Clonidine HCl 80 mcg/ Sodium Chloride 99 mls @ 50 mls/min INJECT ONETIME ONE Stop: 02/10/17 06:01 Clindamycin Phosphate 900 mg/ (Premix) 50 mls @ 100 mls/hr IV ONCALL [facility] Last Admin: 02/10/17 07:35 Dose: 100 mls/hr Ropivacaine 49.25 ml/Ketorolac Tromethamine 30 mg/Epinephrine HCl 0.5 mg/ Clonidine HCl 80 mcg/ Sodium Chloride 100 mls @ 50 mls/min INJECT ONETIME ONE Stop: 02/10/17 06:01 Last Admin: 02/10/17 20:07 Dose: Not Given Lactated Ringer's (Ringers, Lactated) 1,000 mls @ 100 mls/hr IV ASDIRECTED [facility] Last Admin: 02/11/17 02:55 Dose: 100 mls/hr Clindamycin Phosphate 900 mg/ (Premix) 50 mls @ 100 mls/hr IV Q8H [facility] Clindamycin Phosphate 900 mg/ (Premix) 50 mls @ 100 mls/hr IV ONCALL [facility] Stop: 02/11/17 19:29 Clindamycin Phosphate 900 mg/ (Premix) 50 mls @ 100 mls/hr IV Q8H [facility] Stop: 02/11/17 03:29 Last Admin: 02/11/17 02:56 Dose: 100 mls/hr Magnesium Sulfate 4 gm/ Premix 100 mls @ 50 mls/hr IV ONETIME ONE Stop: 02/10/17 16:38 Last Admin: 02/10/17 14:59 Dose: 50 mls/hr Magnesium Sulfate 2 gm/ Premix 50 mls @ 50 mls/hr IV ONETIME ONE Stop: 02/11/17 08:59 Last Admin: 02/11/17 08:25 Dose: 50 mls/hr Magnesium Sulfate 2 gm/ Premix 50 mls @ 50 mls/hr IV ONETIME ONE Stop: 02/12/17 08:45 Last Admin: 02/12/17 08:43 Dose: 50 mls/hr Lidocaine (Xylocaine-Mpf 2%) Confirm Administered Dose 5 ml .ROUTE .STK-MED ONE Stop: 02/10/17 08:32 Lisinopril (Prinivil) 5 mg PO DAILY [facility] Midazolam HCl (Versed 1 Mg/Ml) Confirm Administered Dose 2 mg .ROUTE .STK-MED ONE Stop: 02/10/17 08:33 Ondansetron HCl (Zofran) Confirm Administered Dose 4 mg .ROUTE .STK-MED ONE Stop: 02/10/17 08:33 Liraglutide 1.8 Mg 1.8 each SUBCUT DAILY [facility] Last Admin: 02/11/17 09:20 Dose: Not Given Phenylephrine HCl (Phenylephrine In Ns 100 Mcg/Ml) Confirm Administered Dose 1 mg .ROUTE .STK-MED ONE Stop: 02/10/17 11:46 Propofol (Diprivan 20 Ml) Confirm Administered Dose 600 mg .ROUTE .STK-MED ONE Stop: 02/10/17 08:33 Propofol (Diprivan 20 Ml) Confirm Administered Dose 200 mg .ROUTE .STK-MED ONE Stop: 02/10/17 12:01 Scopolamine (Transderm-Scop) 1.5 mg TRDER ONARRIVE [facility] Last Admin: 02/10/17 07:34 Dose: 1.5 mg Tranexamic Acid (Cyklokapron) 4,000 mg IV SEECOMMENT [facility] Tranexamic Acid (Cyklokapron) Confirm Administered Dose 4,000 mg .ROUTE .STK- MED ONE Stop: 02/10/17 07:31 - Exam General: alert, oriented, cooperative Lungs: Clear to auscultation, Normal respiratory effort Cardiovascular: Regular Rate, Regular Rhythm Abdomen: bowel sounds present, soft, no tenderness, no distension Extremities: edema (trace to +1 to operative leg ,left) Wound/Incisions: dressing dry and intact Neurological: no new focal deficit Psy/Mental Status: alert, normal affect, normal mood Consult PN Assessment/Plan Procedures: Procedures ASSAY OF CREATININE (04/18/16) ASSAY OF LACTIC ACID (04/26/16) ASSAY OF MAGNESIUM (03/28/16) ASSAY OF PSA TOTAL (10/17/16) ASSAY OF TROPONIN QUANT (07/16/16) ASSAY OF UREA NITROGEN (04/18/16) ASSAY OF VANCOMYCIN (04/26/16) BLOOD CULTURE FOR BACTERIA (04/26/16) C-REACTIVE PROTEIN (04/26/16) CHEST X-RAY 1 VIEW FRONTAL (07/16/16) COMPLETE CBC W/AUTO DIFF WBC (07/16/16) COMPREHEN METABOLIC PANEL (07/16/16) CREATINE MB FRACTION (03/28/16) CT HEAD/BRAIN W/O DYE (07/16/16) CT NECK SPINE W/O DYE (07/16/16) CT THORAX W/DYE (04/16/16) CULTR BACTERIA EXCEPT BLOOD (04/26/16) CULTURE AEROBIC IDENTIFY (04/26/16) CULTURE OTHR SPECIMN AEROBIC (04/26/16) DRAIN/INJ JOINT/BURSA W/O US (11/18/16) ELECTROCARDIOGRAM TRACING (07/16/16) EMERGENCY DEPT VISIT (11/17/16) EMERGENCY DEPT VISIT (07/16/16) EMERGENCY DEPT VISIT (04/26/16) EMERGENCY DEPT VISIT (03/28/16) GLUCOSE BLOOD TEST (04/26/16) IMMUNIZATION ADMIN (04/26/16) METABOLIC PANEL TOTAL CA (04/26/16) MICROBE SUSCEPTIBLE HEAVEN (04/26/16) N BLOCK INJ ILIO-ING/HYPOGI (09/03/16) OFFICE/OUTPATIENT VISIT EST (04/10/16) OFFICE/OUTPATIENT VISIT NEW (10/17/16) OFFICE/OUTPATIENT VISIT NEW (10/19/15) PROTHROMBIN TIME (11/17/16) PRP I/THERESA INIT REDUC >5 YR (11/27/15) RBC SED RATE AUTOMATED (04/26/16) ROUTINE VENIPUNCTURE (11/17/16) SMEAR GRAM STAIN (04/26/16) TDAP VACCINE 7 YRS/> IM (04/26/16) THER/PROPH/DIAG INJ IV PUSH (07/16/16) THER/PROPH/DIAG INJ SC/IM (11/17/16) THER/PROPH/DIAG IV INF INIT (04/26/16) TX/PRO/DX INJ NEW DRUG ADDON (07/16/16) UPR/L XTREMITY ART 2 LEVELS (01/17/17) URINALYSIS AUTO W/SCOPE (10/17/16) US EXAM SCROTUM (08/29/16) VASCULAR STUDY (08/29/16) X-RAY EXAM KNEE 4 OR MORE (11/18/16) X-RAY EXAM OF ELBOW (04/26/16) X-RAY EXAM OF KNEE 3 (11/17/16) X-RAY EXAM OF SHOULDER (07/16/16) (1) S/P total knee arthroplasty SNOMED Code(s): 9571478807595, 927957224, 8018638002060 Code(s): Z96.659 - PRESENCE OF UNSPECIFIED ARTIFICIAL KNEE JOINT Current Visit: Yes Qualifiers: Laterality: left Qualified Code(s): Z96.652 - Presence of left artificial knee joint (2) A-fib SNOMED Code(s): 75892513 Code(s): I48.91 - UNSPECIFIED ATRIAL FIBRILLATION Current Visit: No Qualifiers: Atrial fibrillation type: chronic Qualified Code(s): I48.2 - Chronic atrial fibrillation (3) CAD (coronary artery disease) SNOMED Code(s): 42181477 Code(s): I25.10 - ATHSCL HEART DISEASE OF [place] CORONARY ARTERY W/O ANG PCTRS Current Visit: No Qualifiers: Coronary Disease-Associated Artery/Lesion type: [place] artery [place] vs. transplanted heart: [place] heart Associated angina: without angina Qualified Code(s): I25.10 - Atherosclerotic heart disease of [place] coronary artery without angina pectoris (4) Chronic anticoagulation SNOMED Code(s): 517650940 Code(s): Z79.01 - CONTROL PANEL BUILDER (CURRENT) USE OF ANTICOAGULANTS Current Visit: No (5) Diabetes type 2, controlled SNOMED Code(s): 42783964 Code(s): E11.9 - TYPE 2 DIABETES MELLITUS WITHOUT COMPLICATIONS Current Visit: No Qualifiers: Diabetes mellitus complication status: without complication Diabetes mellitus residential insulin use: without termite control service representative use Qualified Code(s): E11.9 - Type 2 diabetes mellitus without complications Problem List Initiated/Reviewed/Updated: Yes Plan: This 76 year old male admitted with L TKA, Hospitalist service consulted for medical management. 1. S/P L TKA: per Ortho. 2. Afib: Stable. Continue Metoprolol. Continue Coumadin. Will order for recheck of INR on Friday, due to Holiday weekend and results to be follow by Dr Nikita Pandey, PCP. 3. DM type 2:BS controlled. May restart Victoza and metformin iupon discharge. 4. CAD: Continue ASA, Atorvastatin, and Lisinopril. Stable for discharge home today per Ortho.
[2017-02-13 07:59] VITALS: BP 107/59
[2017-02-13] MEDS: Aspirin 81 MG Tab.Chew PO SCH (08:43)
[2017-02-13] MEDS: Docusate Sodium 100 MG Cap PO SCH (08:44)
[2017-02-13] MEDS: atorvaSTATin 40 MG Tab PO SCH (08:45)
[2017-02-13] MEDS: Enoxaparin 40 MG/0.4 ML Syringe SUBCUT SCH (08:45)
[2017-02-13] MEDS: Metoprolol Tartrate 25 MG Tab PO SCH (08:45)
[2017-02-13] MEDS ORDERED: Pantoprazole 40 MG in Sodium Chloride 0.9% 10 ML IVPUSH SCH (09:00)
--- NOTE | 2017-02-13 14:44 | PCM.SN ---
- Free Text/Narrative Note: Discharge summary Dressing changed prior to discharge. See discharge plan for complete list of discharge medications and instructions. Dictation #: [id number]
--- NOTE | 2017-02-14 04:00 | DISCH ---
DATE OF ADMISSION: 02/10/2017 DATE OF DISCHARGE: 02/13/2017 PRIMARY CARE PHYSICIAN: Nikita Pandey M.D. ADMITTING DIAGNOSIS: 1. Degenerative joint disease, left knee, tricompartmental. OTHER MEDICAL DIAGNOSES: 1. Atrial fibrillation. 2. Hypertension. 3. Hypercholesterolemia. 4. Type 2 diabetes mellitus. DISCHARGE DIAGNOSES: 1. Status post left total knee arthroplasty. 2. Atrial fibrillation. 3. Hypertension. 4. Hypercholesterolemia. 5. Type 2 diabetes mellitus. BRIEF HISTORY: The patient is a 76-year-old male, with multiple medical comorbidities, who has had complete progressive left knee pain. His x-rays did show severe tricompartmental degenerative changes. He has failed conservative treatment. Due to his lack of response to conservative treatment, surgical intervention was considered at that time. OPERATION: Left total knee arthroplasty. HOSPITAL COURSE: During the patient's hospital course, pain was controlled via IV and PO pain medication. The patient was given two doses of Clindamycin postoperatively for 24 hours of antibiotic coverage. The patient was followed by the hospitalist Dr. Casanova and Physical Therapy during his hospital stay. Upon discharge, the patient's vital signs were stable and he was afebrile. Hemoglobin on day of discharge was 8.6. Lovenox 40 mg subcutaneous daily and his home medication of Warfarin 5mg was started on postop day 1 for DVT prophylaxis. Pain is controlled currently with oral pain medications only. He is tolerating oral intake and ambulating with his wheeled walker. The patient feels comfortable with discharge home today. DISCHARGE MEDICATIONS: 1. Tylenol 500 mg. 2. Colace 100 mg. 3. Lovenox 40 mg. 4. Oxycodone 5 mg. DISCHARGE INSTRUCTIONS: 1. Patient will follow up in the clinic on February 20, 2017. This appointment has been made for the patient. 2. He should attend outpatient physical therapy 2 to 3 times per week for 4 to 6 weeks. 3[address] He should place polar care to the left knee. 4. MAYTE hose to the lower extremities, on in the morning and off in the evening. For complete medication reconciliation and discharge instructions, please refer to the patient's EHR. If patient has questions or concerns prior to followup, he may call the clinic. CORNELIO BRIDGES /[id number] MTDD
== END 2017-02-13 11:50 | disposition home or self-care (01) | DRG 470 ==
LOC: MW.MS 07:57
PROVIDERS: ADMIT Orthopaedic Surgery; ATTEND Orthopaedic Surgery
PROC: 0SRD0J9 Replacement of Left Knee Joint with Synthetic Substitute, Cemented, Open Approach (ICD-10-PCS; principal; 2017-02-10)
DX: M17.12 Unilateral primary osteoarthritis, left knee (principal); M25.762 Osteophyte, left knee; G89.18 Other acute postprocedural pain; R12 Heartburn; I48.91 Unspecified atrial fibrillation; I10 Essential (primary) hypertension; E78.00 Pure hypercholesterolemia, unspecified; E11.9 Type 2 diabetes mellitus without complications; I25.10 Atherosclerotic heart disease of native coronary artery without angina pectoris; I25.2 Old myocardial infarction; Z95.5 Presence of coronary angioplasty implant and graft; Z79.899 Other long term (current) drug therapy; Z79.82 Long term (current) use of aspirin; Z87.891 Personal history of nicotine dependence
CPT/HCPCS: 01402; 36415; 73560-26-LT; 73560-LT; 80048; 80053; 82962; 83735; 85025; 85610; 86156; 86850; 86900; 86901; 88305; 88311; 97110-GP; 97116-GP; 97161-GP; A9270-GY; C1713; C1776; C9113; J0171; J0735; J1170; J1650; J1815-GY; J1885; J2250; J2405; J2704; J2795; J3010; J3475; J7050; J7120

== ENCOUNTER 2017-06-20 15:07 | Observation (INO) | payer MEDICARE ==
[2017-06-20] MEDS ORDERED: Aspirin 81 MG Tab.Chew PO ONE (15:19)
[2017-06-20] MEDS ORDERED: Sodium Chloride 0.9% 10 ML Syringe FLUSH PRN ×2 (15:19→18:08)
[2017-06-20] MEDS ORDERED: Sodium Chloride 0.9% 1,000 ML IV SCH (15:30)
--- NOTE | 2017-06-20 15:45 | EDM.PDOC ---
ED HPI GENERAL MEDICAL PROBLEM - General Chief Complaint: Chest Pain Stated Complaint: CHEST PAIN Time Seen by Provider: 06/20/17 15:17 Source of Information: Reports: Patient History Limitations: Reports: No Limitations - History of Present Illness INITIAL COMMENTS - FREE TEXT/NARRATIVE: HISTORY AND PHYSICAL: History of present illness: [77-year-old male with a history of high blood pressure high cholesterol type 2 diabetes on Victoza as well as known coronary artery disease with a stent done years ago by Dr. Chowdhury in [place]. He also has a history of atypical chest pain. Patient now presents emergency department complaining of chest pain rest onset mid chest pressure now resolved. No shortness of breath nausea vomiting or diaphoresis. No productive cough or fever. Pain is not worse with palpation or movement.] Review of systems: As per history of present illness and below otherwise all systems reviewed and negative. Past medical history: As per history of present illness and as reviewed below otherwise noncontributory. Surgical history: As per history of present illness and as reviewed below otherwise noncontributory. Social history: No reported history of drug or alcohol abuse. Family history: As per history of present illness and as reviewed below otherwise noncontributory. Physical exam: Somewhat frail-appearing 77-year-old male in no acute distress. Alert calm cheerful communicative and cooperative. Mucous membranes moist supple neck clear lungs regular rhythm nontender chest wall no acute skin changes. No rib tenderness or subcutaneous air. Nontender abdomen and epigastrium no CVA tenderness normal extremities nonfocal neuro HEENT: Atraumatic, normocephalic, pupils reactive, negative for conjunctival pallor or scleral icterus, mucous membranes moist, throat clear, neck supple, nontender, trachea midline. Lungs: Clear to auscultation, breath sounds equal bilaterally, chest nontender. Heart: S1S2, regular, negative for clicks, rubs, or JVD. Abdomen: Soft, nondistended, nontender. Negative for masses or hepatosplenomegaly. Negative for costovertebral tenderness. Pelvis: Stable nontender. Genitourinary: Deferred. Rectal: Deferred. Extremities: Atraumatic, negative for cords or calf pain. Neurovascular unremarkable. Neuro: Awake, alert, oriented. Cranial nerves II through XII unremarkable. Cerebellum unremarkable. Motor and sensory unremarkable throughout. Exam nonfocal. Diagnostics: [EKG normal sinus tachycardia at 114 left bundle branch block no STEMI no sig change compared with prior study from 2016. Chest x-ray chronic changes no acute disease interpreted by me Therapeutics: [] Impression: [Chest pain] Plan: [Signs and symptoms consistent with chest pain possible cardiac etiology in an elderly gentleman with a known history of coronary artery disease in a stent in place. EKG unchanged from prior study. Patient is well-appearing and pain-free. He is comfortable and calm. Aspirin given. Full workup pending. Anticipate observation telemetry admission to the hospitalist service for further cardiac workup and serial enzymes.] Definitive disposition and diagnosis as appropriate pending reevaluation and review of above. chest pain Pain Score (Numeric/FACES): 6 - Related Data Allergies Allergy/AdvReac Type Severity Reaction Status Date / Time Penicillins Allergy Anaphylactic Verified 06/20/17 15:15 Shock radiographic dye Allergy Rash Uncoded 06/20/17 15:15 Home Meds: Home Meds Lisinopril 5 mg PO BEDTIME 11/23/15 [History] Nitroglycerin [Nitrostat] 0.4 mg SL ASDIRECTED PRN 11/23/15 [History] Omeprazole [Prilosec] 20 mg PO BID 11/23/15 [History] atorvaSTATin Calcium [Atorvastatin Calcium] 40 mg PO BEDTIME 11/23/15 [History] metFORMIN HCl [Metformin HCl] 500 mg PO BIDMEALS 11/23/15 [History] Metoprolol Tartrate [Lopressor] 25 mg PO BID 03/28/16 [History] Aspirin [Maribel Chewable Aspirin] 81 mg PO DAILY 04/26/16 [History] Glucosamine/D3/Boswellia Sandi [Osteo Bi-Flex Caplet] 1 each PO DAILY 04/26/16 [ History] Liraglutide [Victoza] 1.8 mg SUBCUT DAILY 04/26/16 [History] Warfarin [Coumadin] 7.5 mg PO BEDTIME 04/26/16 [History] oxyCODONE 5 - 10 mg PO Q4H PRN #80 tablet 02/13/17 [Rx] Past Medical History HEENT History: Reports: Impaired Vision Other HEENT History: wears glasses, has upper and lower dentures Cardiovascular History: Reports: Afib, CAD, High Cholesterol, Hypertension, OR, Stents Respiratory History: Reports: None Gastrointestinal History: Reports: None Genitourinary History: Reports: None Musculoskeletal History: Reports: Arthritis, Fracture Other Musculoskeletal History: hx of fx in back Neurological History: Reports: None Psychiatric History: Reports: None Endocrine/Metabolic History: Reports: Diabetes, Type II, Obesity/BMI 30+ Hematologic History: Reports: None Immunologic History: Reports: None Oncologic (Cancer) History: Reports: None Dermatologic History: Reports: Cellulitis, Other (See Below) - Infectious Disease History Infectious Disease History: Reports: Chicken Pox, Measles, Mumps - Past Surgical History HEENT Surgical History: Reports: Cataract Surgery Cardiovascular Surgical History: Reports: Coronary Artery Stent Respiratory Surgical History: Reports: None GI Surgical History: Reports: Appendectomy, Hernia, Inguinal Male Surgical History: Reports: Vasectomy Endocrine Surgical History: Reports: None Neurological Surgical History: Reports: None Musculoskeletal Surgical History: Reports: Other (See Below) Other Musculoskeletal Surgeries/Procedures:: right shoulder pins Oncologic Surgical History: Reports: None Dermatological Surgical History: Reports: None Social & Family History - Family History Family Medical History: Noncontributory - Tobacco Use Smoking Status *Q: Former Smoker Used Tobacco, but Quit: Yes Month Tobacco Last Used: 20 years ago Second Hand Smoke Exposure: No - Caffeine Use Caffeine Use: Reports: Coffee - Recreational Drug Use Recreational Drug Use: No Drug Use in Last 12 Months: No - Living Situation & Occupation Living situation: Reports: Occupation: Employed ED ROS GENERAL - Review of Systems Review Of Systems: See Below (History of present illness) ED EXAM, GENERAL - Physical Exam Exam: See Below (History of present illness) Course - Vital Signs Last Recorded V/S: Last Vital Signs Temp 36.8 C 06/20/17 17:10 Pulse 104 H 06/20/17 17:10 Resp 16 06/20/17 17:10 BP 134/66 06/20/17 17:10 Pulse Ox 94 L 06/20/17 17:10 - Orders/Labs/Meds Orders: Active Orders 24 hr Category Date Time Status Chest 1V Frontal [CR] Stat Exams 06/20/17 15:19 Taken Peripheral IV Insertion Adult [OM.PC] Stat Oth 06/20/17 15:19 Ordered Medication Orders Acetaminophen (Tylenol) 650 mg PO Q4H PRN PRN Reason: Pain (Mild 1-3)/fever Aspirin (Aspirin) 81 mg PO DAILY CHUY Atorvastatin Calcium (Lipitor) 40 mg PO BEDTIME CHUY Insulin Aspart (Novolog) 0 unit SUBCUT TIDAC CHUY PRN Reason: Protocol Last Admin: 06/20/17 18:21 Dose: Metformin HCl (Glucophage) 500 mg PO BIDMEALS [facility] Metoprolol Tartrate (Lopressor) 25 mg PO BID CHUY Nitroglycerin (Nitrostat) 0.4 mg SL ASDIRECTED PRN PRN Reason: Chest Pain Polyethylene Glycol (Miralax) 17 gm PO DAILY PRN PRN Reason: Constipation Sodium Chloride (Saline Flush) 10 ml FLUSH ASDIRECTED PRN PRN Reason: Keep Vein Open Sodium Chloride (Saline Flush) 2.5 ml FLUSH ASDIRECTED PRN PRN Reason: Keep Vein Open Labs: Laboratory Tests 06/20/17 06/20/17 06/20/17 Range/Units 15:21 15:21 15:21 WBC 10.00 (4.0-11.0) K/uL RBC 4.04 L (4.50-5.90) M/uL Hgb 12.0 L (13.0-17.0) g/dL Hct 35.9 L (38.0-50.0) % MCV 88.9 (80.0-98.0) fL MCH 29.7 (27.0-32.0) pg MCHC 33.4 (31.0-37.0) g/dL RDW Std Deviation 44.7 (28.0-62.0) fl RDW Coeff of Natalie 14 (11.0-15.0) % Plt Count 271 (150-400) K/uL MPV 9.00 (7.40-12.00) fL Neut % (Auto) 68.8 (48.0-80.0) % Lymph % (Auto) 21.8 (16.0-40.0) % Woodruff % (Auto) 8.0 (0.0-15.0) % Eos % (Auto) 1.0 (0.0-7.0) % Baso % (Auto) 0.4 (0.0-1.5) % Neut # (Auto) 6.9 H (1.4-5.7) K/uL Lymph # (Auto) 2.2 (0.6-2.4) K/uL Woodruff # (Auto) 0.8 (0.0-0.8) K/uL Eos # (Auto) 0.1 (0.0-0.7) K/uL Baso # (Auto) 0.0 (0.0-0.1) K/uL Nucleated RBC % 0.0 /100WBC Nucleated RBCs # 0 K/uL INR (0.86-1.11) Sodium 141 (136-146) mmol/L Potassium 4.3 (3.5-5.1) mmol/L Chloride 109 (98-110) mmol/L Carbon Dioxide 22 (21-31) mmol/L BUN 17 (6.0-23.0) mg/dL Creatinine 1.0 (0.6-1.5) mg/dL Est Cr Clr Drug Dosing 62.84 mL/min Estimated GFR (MDRD) > 60.0 ml/min Glucose 244 H (60-110) mg/dL Calcium 9.3 (8.8-10.8) mg/dL Total Bilirubin 0.9 (0.1-1.5) mg/dL AST 19 (5-40) IU/L ALT 18 (8-54) IU/L Alkaline Phosphatase 104 (40-150) Troponin I < 0.10 (0.0-0.29) NG/ML Total Protein 7.4 (6.0-8.0) g/dL Albumin 4.0 (3.4-4.8) g/dL Globulin 3.4 (2.0-3.5) g/dL Albumin/Globulin Ratio 1.2 L (1.3-2.8) 06/20/17 Range/Units 15:21 WBC (4.0-11.0) K/uL RBC (4.50-5.90) M/uL Hgb (13.0-17.0) g/dL Hct (38.0-50.0) % MCV (80.0-98.0) fL MCH (27.0-32.0) pg MCHC (31.0-37.0) g/dL RDW Std Deviation (28.0-62.0) fl RDW Coeff of Natalie (11.0-15.0) % Plt Count (150-400) K/uL MPV (7.40-12.00) fL Neut % (Auto) (48.0-80.0) % Lymph % (Auto) (16.0-40.0) % Woodruff % (Auto) (0.0-15.0) % Eos % (Auto) (0.0-7.0) % Baso % (Auto) (0.0-1.5) % Neut # (Auto) (1.4-5.7) K/uL Lymph # (Auto) (0.6-2.4) K/uL Woodruff # (Auto) (0.0-0.8) K/uL Eos # (Auto) (0.0-0.7) K/uL Baso # (Auto) (0.0-0.1) K/uL Nucleated RBC % /100WBC Nucleated RBCs # K/uL INR 1.23 H (0.86-1.11) Sodium (136-146) mmol/L Potassium (3.5-5.1) mmol/L Chloride (98-110) mmol/L Carbon Dioxide (21-31) mmol/L BUN (6.0-23.0) mg/dL Creatinine (0.6-1.5) mg/dL Est Cr Clr Drug Dosing mL/min Estimated GFR (MDRD) ml/min Glucose (60-110) mg/dL Calcium (8.8-10.8) mg/dL Total Bilirubin (0.1-1.5) mg/dL AST (5-40) IU/L ALT (8-54) IU/L Alkaline Phosphatase (40-150) Troponin I (0.0-0.29) NG/ML Total Protein (6.0-8.0) g/dL Albumin (3.4-4.8) g/dL Globulin (2.0-3.5) g/dL Albumin/Globulin Ratio (1.3-2.8) Meds: Medications Generic Name Dose Route Start Last Admin Trade Name Freq PRN Reason Stop Dose Admin Acetaminophen 650 mg 06/20/17 17:51 Tylenol PO Q4H PRN Pain (Mild 1-3)/fever Aspirin 81 mg 06/21/17 09:00 Aspirin PO DAILY [facility] Atorvastatin Calcium 40 mg 06/20/17 21:00 Lipitor PO BEDTIME [facility] Insulin Aspart 0 unit 06/20/17 18:15 06/20/17 18:21 Novolog SUBCUT [facility] Protocol Metformin HCl 500 mg 06/21/17 08:00 Glucophage PO BIDMEALS CHUY Metoprolol Tartrate 25 mg 06/20/17 21:00 Lopressor PO BID CHUY Nitroglycerin 0.4 mg 06/20/17 18:06 Nitrostat SL ASDIRECTED PRN Chest Pain Polyethylene Glycol 17 gm 06/20/17 17:51 Miralax PO DAILY PRN Constipation Sodium Chloride 10 ml 06/20/17 18:08 Saline Flush FLUSH ASDIRECTED PRN Keep Vein Open Sodium Chloride 2.5 ml 06/20/17 18:08 Saline Flush FLUSH ASDIRECTED PRN Keep Vein Open Discontinued Medications Generic Name Dose Route Start Last Admin Trade Name Freq PRN Reason Stop Dose Admin Aspirin 324 mg 06/20/17 15:19 06/20/17 15:49 Aspirin PO 06/20/17 15:20 324 mg ONETIME ONE Administration Sodium Chloride 1,000 mls @ 125 mls/hr 06/20/17 15:30 06/20/17 15:50 Normal Saline IV 125 mls/hr ASDIRECTED CHUY Administration Sodium Chloride 10 ml 06/20/17 15:19 Saline Flush FLUSH ASDIRECTED PRN Keep Vein Open Departure - Departure Time of Disposition: 16:20 Disposition: Refer to Observation Condition: Good Clinical Impression: Chest pain, Hyperglycemia, Subtherapeutic international normalized ratio (INR) - My Orders Last 24 Hours: My Active Orders 06/20/17 15:19 Chest 1V Frontal [CR] Stat Peripheral IV Insertion Adult [OM.PC] Stat - Assessment/Plan Last 24 Hours: My Active Orders 06/20/17 15:19 Chest 1V Frontal [CR] Stat Peripheral IV Insertion Adult [OM.PC] Stat
[2017-06-20 15:46] LABS: CHLORIDE,CL 109 mmol/L (98-110); SODIUM,NA 141 mmol/L (136-146)
[2017-06-20] MEDS ORDERED: Acetaminophen 325 MG Tab PO PRN (17:51)
[2017-06-20] MEDS ORDERED: Polyethylene Glycol 3350 Powder 17 GM Packet PO PRN (17:51)
[2017-06-20] MEDS ORDERED: Nitroglycerin 0.4 MG Tab.SL SL PRN (18:06)
[2017-06-20] MEDS ORDERED: Sodium Chloride 0.9% 2.5 ML Syringe FLUSH PRN (18:08)
[2017-06-20] MEDS: Insulin Aspart 100 Units/ML 3 ML Pen SUBCUT SCH (18:21)
--- NOTE | 2017-06-20 18:24 | PCM.HP ---
Addendum entered and electronically signed by Olu Starks MD 06/20/17 18:54: EKG from ED: Sinus Tachycardia with LBBB, HR 114 Original Note: H&P History of Present Illness - General Date of Service: 06/20/17 Admit Problem/Dx: Admission Diagnosis/Problem Admission Diagnosis/Problem Chest pain Source of Information: Patient History Limitations: Reports: No Limitations - History of Present Illness Initial Comments - Free Text/Narative: 77 yo male with history of CAD, RI s/p PCI, AF, DM T2 & Hyperlipidemia admitted for chest pain. Patient states he was sitting at home having lunch when all of a sudden he felt chest pain he describes as someone hitting him with a bat. The pain was 7-8/10 and it was continuous. He had some associated palpitations and weakness but denies sob, vision changes, nausea, vomiting, numbness, tingling or pain radiation. Pain gradually improved but has not resolved. Pain is still present but it is 2-4/10. It is still continuous and he has some associated head throbbing and dry cough now. Prior to onset of pain he did exert himself with moving bricks but he states he does that regularly without difficulty. His stent was put into his main coronary artery about 5-[address] Chowdhury in [place]. He sees Dr. Chowdhury once per year. He last saw him early this year and everything was okay. He sees Dr. Pandey as his PCP. He saw him last few weeks ago. He states that the only thing changed at the time was his Coumadin. He was increased from Coumadin 5 mg to 7.5 mg daily in evening. He denies use of tobacco. chest pain Pain Score (Numeric/FACES): 3 - Related Data Allergies/Adverse Reactions: Allergies Allergy/AdvReac Type Severity Reaction Status Date / Time Penicillins Allergy Anaphylactic Verified 06/20/17 15:15 Shock radiographic dye Allergy Rash Uncoded 06/20/17 15:15 Home Medications: Home Meds Lisinopril 5 mg PO BEDTIME 11/23/15 [History] Nitroglycerin [Nitrostat] 0.4 mg SL ASDIRECTED PRN 11/23/15 [History] Omeprazole [Prilosec] 20 mg PO BID 11/23/15 [History] atorvaSTATin Calcium [Atorvastatin Calcium] 40 mg PO BEDTIME 11/23/15 [History] metFORMIN HCl [Metformin HCl] 500 mg PO BIDMEALS 11/23/15 [History] Metoprolol Tartrate [Lopressor] 25 mg PO BID 03/28/16 [History] Aspirin [Maribel Chewable Aspirin] 81 mg PO DAILY 04/26/16 [History] Glucosamine/D3/Boswellia Sandi [Osteo Bi-Flex Caplet] 1 each PO DAILY 04/26/16 [ History] Liraglutide [Victoza] 1.8 mg SUBCUT DAILY 04/26/16 [History] Warfarin [Coumadin] 7.5 mg PO BEDTIME 04/26/16 [History] oxyCODONE 5 - 10 mg PO Q4H PRN #80 tablet 02/13/17 [Rx] Past Medical History HEENT History: Reports: Impaired Vision Other HEENT History: wears glasses, has upper and lower dentures Cardiovascular History: Reports: Afib, CAD, High Cholesterol, Hypertension, RI, Stents Respiratory History: Reports: None Gastrointestinal History: Reports: None Genitourinary History: Reports: None Musculoskeletal History: Reports: Arthritis, Fracture Other Musculoskeletal History: hx of fx in back Neurological History: Reports: None Psychiatric History: Reports: None Endocrine/Metabolic History: Reports: Diabetes, Type II, Obesity/BMI 30+ Hematologic History: Reports: None Immunologic History: Reports: None Oncologic (Cancer) History: Reports: None Dermatologic History: Reports: Cellulitis, Other (See Below) - Infectious Disease History Infectious Disease History: Reports: Chicken Pox, Measles, Mumps - Past Surgical History HEENT Surgical History: Reports: Cataract Surgery Cardiovascular Surgical History: Reports: Coronary Artery Stent Respiratory Surgical History: Reports: None GI Surgical History: Reports: Appendectomy, Hernia, Inguinal Male Surgical History: Reports: Vasectomy Endocrine Surgical History: Reports: None Neurological Surgical History: Reports: None Musculoskeletal Surgical History: Reports: Knee Replacement, Other (See Below) Other Musculoskeletal Surgeries/Procedures:: right shoulder pins left tka Oncologic Surgical History: Reports: None Dermatological Surgical History: Reports: None Social & Family History - Family History Family Medical History: Noncontributory - Tobacco Use Smoking Status *Q: Never Smoker Used Tobacco, but Quit: Yes Month Tobacco Last Used: 20 years ago Second Hand Smoke Exposure: No - Caffeine Use Caffeine Use: Reports: None - Recreational Drug Use Recreational Drug Use: No Drug Use in Last 12 Months: No - Living Situation & Occupation Living situation: Reports: Occupation: Employed H&P Review of Systems - Review of Systems: Review Of Systems: See Below General: Reports: Weakness HEENT: Reports: No Symptoms Pulmonary: Reports: Cough Cardiovascular: Reports: Chest Pain, Palpitations Gastrointestinal: Reports: No Symptoms Genitourinary: Reports: No Symptoms Musculoskeletal: Reports: No Symptoms Skin: Reports: No Symptoms Psychiatric: Reports: No Symptoms Neurological: Reports: No Symptoms Hematologic/Lymphatic: Reports: No Symptoms Immunologic: Reports: No Symptoms Exam - Exam Exam: See Below - Vital Signs Vital Signs: Last Vital Signs Temp 36.8 C 06/20/17 17:10 Pulse 104 H 06/20/17 17:10 Resp 16 06/20/17 17:10 BP 134/66 06/20/17 17:10 Pulse Ox 94 L 06/20/17 17:10 Weight: 91.217 kg - Exam General: Alert, Oriented HEENT: Conjunctiva Clear, EACs Clear, EOMI Neck: Supple, Trachea Midline, +2 Carotid Pulse wo Bruit, Carotid Bruit Lungs: Clear to Auscultation, Normal Respiratory Effort Cardiovascular: Regular Rate, Other (frequent pvc) GI/Abdominal Exam: Normal Bowel Sounds, Soft, Non-Tender Extremities: Normal Inspection, No Pedal Edema, Normal Capillary Refill Peripheral Pulses: 2+: Radial (L), Radial (R) Skin: Intact Neurological: Reflexes Equal Bilateral Neuro Extensive - Mental Status: Alert, Oriented x3 Psychiatric: Alert, Normal Affect, Normal Mood - Patient Data Result Diagrams: 06/20/17 15:21 06/20/17 15:21 *Q Meaningful Use (ADM) - VTE *Q VTE Criteria *Q: - Stroke *Q Stroke Criteria *Q: - AMI *Q AMI Criteria *Q: Problem List Initiated/Reviewed/Updated: Yes Orders Last 24hrs: Active Orders 24 hr Category Date Time Status Patient Status [ADT] Routine ADT 06/20/17 17:46 Ordered Antiembolic Devices [RC] PER UNIT ROUTINE Care 06/20/17 18:02 Ordered Blood Glucose Check, Bedside [RC] TIDMEALS Care 06/20/17 17:51 Ordered Intake and Output [RC] QSHIFT Care 06/20/17 17:57 Ordered Oxygen Therapy [RC] PRN Care 06/20/17 17:46 Ordered Up ad Bonnie [RC] ASDIRECTED Care 06/20/17 17:51 Ordered VTE/DVT Education [RC] PER UNIT ROUTINE Care 06/20/17 17:46 Ordered Vital Signs [RC] Q4H Care 06/20/17 17:46 Ordered ADA Diabetic [[place] [employer] Diet] [DIET Diet 06/20/17 Dinner Active ] CBC WITH AUTO DIFF [HEME] AM Lab 06/21/17 05:11 Ordered CBC WITH AUTO DIFF [HEME] AM Lab 06/22/17 05:11 Ordered CBC WITH AUTO DIFF [HEME] AM Lab 06/23/17 05:11 Ordered COMPREHENSIVE METABOLIC PN,CMP [CHEM] AM Lab 06/21/17 05:11 Ordered COMPREHENSIVE METABOLIC PN,CMP [CHEM] AM Lab 06/22/17 05:11 Ordered COMPREHENSIVE METABOLIC PN,CMP [CHEM] AM Lab 06/23/17 05:11 Ordered INR,PT,PROTHROMBIN TIME [COAG] AM Lab 06/21/17 05:11 Ordered INR,PT,PROTHROMBIN TIME [COAG] AM Lab 06/22/17 05:11 Ordered INR,PT,PROTHROMBIN TIME [COAG] AM Lab 06/23/17 05:11 Ordered MAGNESIUM [CHEM] AM Lab 06/21/17 05:11 Ordered TROPONIN I [CHEM] Q6H Lab 06/20/17 21:20 Ordered TROPONIN I [CHEM] Q6H Lab 06/21/17 03:20 Ordered Acetaminophen [Tylenol] Med 06/20/17 17:51 Ordered 650 mg PO Q4H PRN Aspirin Med 06/21/17 09:00 Ordered 81 mg PO DAILY Insulin Aspart [NovoLOG] Med 06/20/17 18:15 Ordered See Protocol SUBCUT TIDAC Metoprolol Tartrate [Lopressor] Med 06/20/17 21:00 Ordered 25 mg PO BID Nitroglycerin [Nitrostat] Med 06/20/17 18:06 Ordered 0.4 mg SL ASDIRECTED PRN Polyethylene Glycol 3350 [MiraLAX] Med 06/20/17 17:51 Ordered 17 gm PO DAILY PRN Sodium Chloride 0.9% [Saline Flush] Med 06/20/17 18:08 Ordered 10 ml FLUSH ASDIRECTED PRN Sodium Chloride 0.9% [Saline Flush] Med 06/20/17 18:08 Ordered 2.5 ml FLUSH ASDIRECTED PRN atorvaSTATin [Lipitor] Med 06/20/17 21:00 Ordered 40 mg PO BEDTIME metFORMIN [Glucophage] Med 06/21/17 08:00 Ordered 500 mg PO BIDMEALS Convert IV to Saline Lock [OM.PC] Routine Oth 06/20/17 18:08 Ordered Sequential Compression Device [OM.PC] Per Unit Routine Oth 06/20/17 17:58 Ordered Resuscitation Status Routine Resus Stat 06/20/17 17:46 Ordered Medication Orders Acetaminophen (Tylenol) 650 mg PO Q4H PRN PRN Reason: Pain (Mild 1-3)/fever Aspirin (Aspirin) 81 mg PO DAILY CHUY Atorvastatin Calcium (Lipitor) 40 mg PO BEDTIME CHUY Insulin Aspart (Novolog) 0 unit SUBCUT TIDAC CHUY PRN Reason: Protocol Metformin HCl (Glucophage) 500 mg PO BIDMEALS CHUY Metoprolol Tartrate (Lopressor) 25 mg PO BID CHUY Nitroglycerin (Nitrostat) 0.4 mg SL ASDIRECTED PRN PRN Reason: Chest Pain Polyethylene Glycol (Miralax) 17 gm PO DAILY PRN PRN Reason: Constipation Sodium Chloride (Saline Flush) 10 ml FLUSH ASDIRECTED PRN PRN Reason: Keep Vein Open Sodium Chloride (Saline Flush) 2.5 ml FLUSH ASDIRECTED PRN PRN Reason: Keep Vein Open Assessment/Plan Comment:: Assessment: 77 yo male with pmh of CAD, RI s/p PCI, AF, DM T2 & Hyperlipidemia admitted for chest pain. Initial work-up in ED included cbc/cmp/troponin/ekg/ cxr. No abnormalities were seen. 1. Chest pain: admit to observation. troponin x3 for total 3 sets. Telemetry. 2. PMH AF & CAD s/p PCI: resume Lopressor. hold Lisinopril 3. Subtherapeutic INR: increase Coumadin from 7.5 mg to 10 mg daily. monitor INR. 4. DM T2: ADA Diet. hold Victoza. Continue Metformin. start low dose sliding scale. BG TIDAC. 5. DVT Prophylaxis: on Coumadin. administer Lovenox 40 mg SC due to subtherapeutic INR.
[2017-06-20] MEDS ORDERED: Warfarin 10 MG Tab PO SCH (19:00)
[2017-06-20] MEDS ORDERED: Enoxaparin 40 MG/0.4 ML Syringe SUBCUT SCH (19:00)
[2017-06-20] MEDS: Metoprolol Tartrate 25 MG Tab PO SCH (20:10)
[2017-06-20] MEDS ORDERED: atorvaSTATin 40 MG Tab PO SCH (21:00)
[2017-06-21 03:57] LABS: CHLORIDE,CL 109 mmol/L (98-110); SODIUM,NA 140 mmol/L (136-146)
[2017-06-21] MEDS ORDERED: metFORMIN 500 MG Tab PO SCH (08:00)
[2017-06-21] MEDS: Metoprolol Tartrate 25 MG Tab PO SCH (08:01)
[2017-06-21 08:04] VITALS: BP 141/70
[2017-06-21] MEDS: Insulin Aspart 100 Units/ML 3 ML Pen SUBCUT SCH ×2 (08:08→12:12)
--- NOTE | 2017-06-21 08:32 | PCM.DCSUM1 ---
Discharge Summary - Hospital Course Free Text/Narrative:: 77 year old male with history of AF, CAD & AL s/p PCI admitted 06/20 for chest pain. Initial work-up in ED revealed subtherapeutic INR otherwise no significant abnormalities. His EKG was Sinus Tachycardia with LBBB and HR 114. He was admitted for observation. His pain improved by the time he was moved to the [facility]. Overnight telemetry was Bigeminal PVC with LBBB with hr 70-100. His torponins were negative x3. His chest pain improved and is now a mild discomfort. He does have a murmur that is more evident with leaning forward. He is requesting discharge. His health care manager is Dr. Chowdhury whom he sees once per year. He was informed that he will need to have f/u appointment with Cardiology within 1 week therefore we will arrange it with Dr. Navarro here. He will also likely need to have echo repeated. Due to weekend we are unable to schedule appointment or do echo therefore he will be discharge and we will arrange for f/u and echo on friday morning and contact him. The only change to his medication will be increasing his warfarin to 10 mg daily. He was informed of importance of f/u with his pcp. F/u will also be arranged with Dr. Pandey his PCP. No other changes were made to his medications/ Discharge Diagnosis: 1. Chest Pain, resolved 2. AF 3. Heart Murmur 4. Subtherapeutic INR Discharge Plan: 1. increase Coumadin to 10 mg daily, new prescription sent to pharmacy, patient informed to DC previous coumadin 2. Echocardiogram 3. f/u with Dr. Navarro - cardiology 4. f/u with Dr. Pandey PCP - Discharge Data Discharge Date: 06/21/17 Discharge Disposition: Home, Self-Care 01 Condition: Stable - Patient Instructions Diet: Heart Healthy Diet Activity: As Tolerated Notify Provider of: Fever, Increased Pain, Swelling and Redness, Drainage, Nausea and/or Vomiting Other/Special Instructions: 1. You will need to take Warfarin 10 mg daily. New prescription was sent to [facility]. Avoid using the previous prescriptions to avoid confusion. 2. you should be contacted by us to schedule your appointment with Dr. Navarro and Dr. Pandey. If you do not hear from us by Friday contact us back. - Discharge Plan Prescriptions/Med Rec: Warfarin [Coumadin] 10 mg PO DAILY 14 Days #14 tablet Home Medications: Home Meds Lisinopril 5 mg PO BEDTIME 11/23/15 [History] Nitroglycerin [Nitrostat] 0.4 mg SL ASDIRECTED PRN 11/23/15 [History] Omeprazole [Prilosec] 20 mg PO BID 11/23/15 [History] atorvaSTATin Calcium [Atorvastatin Calcium] 40 mg PO BEDTIME 11/23/15 [History] metFORMIN HCl [Metformin HCl] 500 mg PO BIDMEALS 11/23/15 [History] Metoprolol Tartrate [Lopressor] 25 mg PO BID 03/28/16 [History] Aspirin [Maribel Chewable Aspirin] 81 mg PO DAILY 04/26/16 [History] Glucosamine/D3/Boswellia Sandi [Osteo Bi-Flex Caplet] 1 each PO DAILY 04/26/16 [ History] Liraglutide [Victoza] 1.8 mg SUBCUT DAILY 04/26/16 [History] Warfarin [Coumadin] 10 mg PO DAILY 14 Days #14 tablet 06/21/17 [Rx] Patient Handouts: Nonspecific Chest Pain, [id number] Referrals: Jeanie Navarro MD [Physician] - Nikita Pandey MD [Physician] - - Patient Data Vitals - Most Recent: Last Vital Signs Temp 36.7 C 06/21/17 08:00 Pulse 79 06/21/17 08:01 Resp 16 06/21/17 08:00 BP 141/70 H 06/21/17 08:01 Pulse Ox 94 L 06/21/17 08:00 Weight - Most Recent: 91.217 kg I&O - Last 24 hours: Intake & Output 06/20/17 06/21/17 06/21/17 22:59 06:59 14:59 Intake Total 1540 Output Total 1300 Balance 240 Lab Results - Last 24 hrs: Laboratory Results - last 24 hr 06/20/17 06/21/17 06/21/17 Range/Units 21:23 03:26 03:26 WBC 7.98 (4.0-11.0) K/uL RBC 3.79 L (4.50-5.90) M/uL Hgb 11.1 L (13.0-17.0) g/dL Hct 34.2 L (38.0-50.0) % MCV 90.2 (80.0-98.0) fL MCH 29.3 (27.0-32.0) pg MCHC 32.5 (31.0-37.0) g/dL RDW Std Deviation 44.8 (28.0-62.0) fl RDW Coeff of Natalie 14 (11.0-15.0) % Plt Count 226 (150-400) K/uL MPV 8.90 (7.40-12.00) fL Neut % (Auto) 53.7 (48.0-80.0) % Lymph % (Auto) 31.1 (16.0-40.0) % [place] % (Auto) 12.5 (0.0-15.0) % Eos % (Auto) 2.3 (0.0-7.0) % Baso % (Auto) 0.4 (0.0-1.5) % Neut # (Auto) 4.3 (1.4-5.7) K/uL Lymph # (Auto) 2.5 H (0.6-2.4) K/uL [place] # (Auto) 1.0 H (0.0-0.8) K/uL Eos # (Auto) 0.2 (0.0-0.7) K/uL Baso # (Auto) 0.0 (0.0-0.1) K/uL Nucleated RBC % 0.0 /100WBC Nucleated RBCs # 0 K/uL INR 1.30 H (0.86-1.11) Sodium (136-146) mmol/L Potassium (3.5-5.1) mmol/L Chloride (98-110) mmol/L Carbon Dioxide (21-31) mmol/L BUN (6.0-23.0) mg/dL Creatinine (0.6-1.5) mg/dL Est Cr Clr Drug Dosing mL/min Estimated GFR (MDRD) ml/min Glucose (60-110) mg/dL POC Glucose (60-110) mg/dL Calcium (8.8-10.8) mg/dL Magnesium (1.5-2.3) mEq/L Total Bilirubin (0.1-1.5) mg/dL AST (5-40) IU/L ALT (8-54) IU/L Alkaline Phosphatase (40-150) Troponin I < 0.10 (0.0-0.29) NG/ML Total Protein (6.0-8.0) g/dL Albumin (3.4-4.8) g/dL Globulin (2.0-3.5) g/dL Albumin/Globulin Ratio (1.3-2.8) 06/21/17 06/21/17 06/21/17 Range/Units 03:26 03:26 06:36 WBC (4.0-11.0) K/uL RBC (4.50-5.90) M/uL Hgb (13.0-17.0) g/dL Hct (38.0-50.0) % MCV (80.0-98.0) fL MCH (27.0-32.0) pg MCHC (31.0-37.0) g/dL RDW Std Deviation (28.0-62.0) fl RDW Coeff of Natalie (11.0-15.0) % Plt Count (150-400) K/uL MPV (7.40-12.00) fL Neut % (Auto) (48.0-80.0) % Lymph % (Auto) (16.0-40.0) % [place] % (Auto) (0.0-15.0) % Eos % (Auto) (0.0-7.0) % Baso % (Auto) (0.0-1.5) % Neut # (Auto) (1.4-5.7) K/uL Lymph # (Auto) (0.6-2.4) K/uL [place] # (Auto) (0.0-0.8) K/uL Eos # (Auto) (0.0-0.7) K/uL Baso # (Auto) (0.0-0.1) K/uL Nucleated RBC % /100WBC Nucleated RBCs # K/uL INR (0.86-1.11) Sodium 140 (136-146) mmol/L Potassium 4.6 (3.5-5.1) mmol/L Chloride 109 (98-110) mmol/L Carbon Dioxide 25 (21-31) mmol/L BUN 17 (6.0-23.0) mg/dL Creatinine 0.8 (0.6-1.5) mg/dL Est Cr Clr Drug Dosing 78.56 mL/min Estimated GFR (MDRD) > 60.0 ml/min Glucose 120 H (60-110) mg/dL POC Glucose 119 H (60-110) mg/dL Calcium 9.0 (8.8-10.8) mg/dL Magnesium 1.5 (1.5-2.3) mEq/L Total Bilirubin 0.8 (0.1-1.5) mg/dL AST 20 (5-40) IU/L ALT 17 (8-54) IU/L Alkaline Phosphatase 88 (40-150) Troponin I < 0.10 (0.0-0.29) NG/ML Total Protein 6.3 (6.0-8.0) g/dL Albumin 3.5 (3.4-4.8) g/dL Globulin 2.8 (2.0-3.5) g/dL Albumin/Globulin Ratio 1.3 (1.3-2.8) Med Orders - Current: Current Medications Acetaminophen (Tylenol) 650 mg PO Q4H PRN PRN Reason: Pain (Mild 1-3)/fever Aspirin (Aspirin) 81 mg PO DAILY [facility] Last Admin: 06/21/17 08:01 Dose: 81 mg Atorvastatin Calcium (Lipitor) 40 mg PO BEDTIME [facility] Last Admin: 06/20/17 20:11 Dose: 40 mg Enoxaparin Sodium (Lovenox) 40 mg SUBCUT Q24H [facility] Last Admin: 06/20/17 20:11 Dose: 40 mg Insulin Aspart (Novolog) 0 unit SUBCUT TIDAC [facility] PRN Reason: Protocol Last Admin: 06/21/17 08:08 Dose: Not Given Metformin HCl (Glucophage) 500 mg PO BIDMEALS [facility] Last Admin: 06/21/17 08:01 Dose: 500 mg Metoprolol Tartrate (Lopressor) 25 mg PO BID [facility] Last Admin: 06/21/17 08:01 Dose: 25 mg Nitroglycerin (Nitrostat) 0.4 mg SL ASDIRECTED PRN PRN Reason: Chest Pain Polyethylene Glycol (Miralax) 17 gm PO DAILY PRN PRN Reason: Constipation Sodium Chloride (Saline Flush) 10 ml FLUSH ASDIRECTED PRN PRN Reason: Keep Vein Open Sodium Chloride (Saline Flush) 2.5 ml FLUSH ASDIRECTED PRN PRN Reason: Keep Vein Open Warfarin Sodium (Coumadin) 10 mg PO DAILY@1400 CHUY Last Admin: 06/20/17 20:11 Dose: 10 mg Discontinued Medications Aspirin (Aspirin) 324 mg PO ONETIME ONE Stop: 06/20/17 15:20 Last Admin: 06/20/17 15:49 Dose: 324 mg Sodium Chloride (Normal Saline) 1,000 mls @ 125 mls/hr IV ASDIRECTED CHUY Last Admin: 06/20/17 15:50 Dose: 125 mls/hr Sodium Chloride (Saline Flush) 10 ml FLUSH ASDIRECTED PRN PRN Reason: Keep Vein Open - Exam General: Reports: Alert, Oriented, Cooperative, No Acute Distress HEENT: Reports: Pupils Equal, Pupils Reactive Neck: Reports: Supple, No JVD Lungs: Reports: Clear to Auscultation, Normal Respiratory Effort Cardiovascular: Reports: Regular Rate, Irregular Rhythm, Murmurs Extremities: No Pedal Edema *Q Meaningful Use (DIS) - VTE *Q VTE Criteria *Q: - Stroke *Q Stroke Criteria *Q: - AMI *Q AMI Criteria *Q:
[2017-06-21] MEDS ORDERED: Aspirin 81 MG Tab.Chew PO SCH (09:00)
--- NOTE | 2017-06-23 11:49 | CR ---
EXAM DATE: 06/20/17 PATIENT'S AGE: 77 Patient: WILFRED HARTMAN Facility: [place], [place] Site . Site : 1940 Study: XRay Chest [id number]/29/2017 3:51:36 PM Ordering Physician: Doctor León Final Report: HISTORY: Chest pain. FINDINGS: AP portable chest radiograph is compared with 16 July 2016. Cardiac silhouette at the upper limits of normal. Pulmonary vasculature 3 of cephalization. No consolidation or pleural effusion is seen. Stable mild elevation of the left hemidiaphragm and eventration of the right. IMPRESSION: No acute cardiopulmonary disease. Dictated by Ashley Smith MD @ 06/20/2017 4:25:39 PM Dictated by: Ashley Smith MD @ 06/20/2017 16:25:45 (Electronic Signature) Report Signed by Proxy. [email or web address]
== END 2017-06-21 12:30 | disposition home or self-care (01) ==
LOC: MW.ED 15:07 → UNDOADMOB 16:21 → MW.MS 16:21
PROVIDERS: ADMIT Internal Medicine; ATTEND Internal Medicine
DX: R07.9 Chest pain, unspecified (principal); I44.7 Left bundle-branch block, unspecified; I49.3 Ventricular premature depolarization; R01.1 Cardiac murmur, unspecified; I25.10 Atherosclerotic heart disease of native coronary artery without angina pectoris; I25.2 Old myocardial infarction; I48.91 Unspecified atrial fibrillation; E11.9 Type 2 diabetes mellitus without complications; E78.00 Pure hypercholesterolemia, unspecified; M19.90 Unspecified osteoarthritis, unspecified site; Z79.01 Long term (current) use of anticoagulants; Z79.82 Long term (current) use of aspirin; Z79.84 Long term (current) use of oral hypoglycemic drugs; Z79.899 Other long term (current) drug therapy; Z88.0 Allergy status to penicillin; Z91.041 Radiographic dye allergy status; Z95.5 Presence of coronary angioplasty implant and graft; Z98.52 Vasectomy status; Z96.652 Presence of left artificial knee joint; Z90.49 Acquired absence of other specified parts of digestive tract; Z98.890 Other specified postprocedural states
CPT/HCPCS: 36415; 71010; 80053; 82962; 83735; 84484; 85025; 85610; 93005; 96360; 96372; 99285; A9270; G0378; J1650; J7040; 99283

== ENCOUNTER 2021-09-03 16:18 | Emergency (ER) | payer MEDICARE, OTHER ==
[2021-09-03] MEDS ORDERED: Morphine 4 MG/ML VIAL IVPUSH ONE (19:47)
[2021-09-03] MEDS ORDERED: Ondansetron 4 MG/2 ML SDV IVPUSH ONE (19:47)
--- NOTE | 2021-09-03 19:54 | EDM.PDOC ---
ED HPI GENERAL MEDICAL PROBLEM - General Chief Complaint: Abdominal Pain Stated Complaint: RT SIDE PAIN AND SWELLING Time Seen by Provider: 09/03/21 19:17 Source of Information: Reports: Patient History Limitations: Reports: No Limitations - History of Present Illness INITIAL COMMENTS - FREE TEXT/NARRATIVE: 81-year-old male history of atrophied right testicle secondary to inguinal hernia repair with mesh, appendectomy, Afib on Coumadin, CAD, DM 2, FL with stents, HTN presents with worsening right groin pain over the past 2 weeks. Pain is described as burning and stabbing sensation, exacerbated with standing up and sitting up, alleviated with laying down. When he stands up pain is rated 10/10. When he lays down, the pain is rated 0/10. He admits to nausea and vomiting 2 weeks ago which triggered his groin pain. He also notes urinary urgency. He denies fever, chills, diarrhea. He feels his abdomen is bloated and feels constipated. ROS: A 10-point review of systems, other than pertinent positives and negatives as stated per HPI, is otherwise negative Past medical history: No additional pertinent history Past Surgical history: No additional pertinent history Social history: No additional pertinent history Family history: No additional pertinent history PHYSICAL EXAM General: AOx4, GCS = 15, moderate distress HEENT: dry mucous membrane Neck: supple, no meningismus, no Kernig or Brudzinski Cardiac: S1S2 RRR Respiratory: CTAB, no crackles or rales, no wheezing Abdomen: Soft, right inguinal embossing machine tender to palpation, no palapble hernia with valsava maneuver, diffusely distended, no rebound or guarding, no pulsatile mass. Back: nontender Musculoskeletal: NVI distally, no deformity Neuro: No focal deficits, CN 2 - 12 WNL. R groin/RLQ Pain Score (Numeric/FACES): 10 - Related Data Allergies Allergy/AdvReac Type Severity Reaction Status Date / Time Iodinated Contrast Media Allergy Rash Verified 09/03/21 16:40 [Iodinated Contrast- Oral and IV Dye] Penicillins Allergy Anaphylactic Verified 09/03/21 16:40 Shock radiographic dye Allergy Rash Uncoded 09/03/21 16:40 Home Meds: Home Meds Lisinopril 5 mg PO BEDTIME 11/23/15 [History] Nitroglycerin [Nitrostat] 0.4 mg SL ASDIRECTED PRN 11/23/15 [History] Omeprazole [Prilosec] 20 mg PO BID 11/23/15 [History] atorvaSTATin Calcium [Atorvastatin Calcium] 40 mg PO BEDTIME 11/23/15 [History] metFORMIN HCl [Metformin HCl] 500 mg PO BIDMEALS 11/23/15 [History] Metoprolol Tartrate [Lopressor] 25 mg PO BID 03/28/16 [History] Aspirin [Maribel Chewable Aspirin] 81 mg PO DAILY 04/26/16 [History] Glucosamine/D3/Boswellia Sandi [Osteo Bi-Flex Caplet] 1 each PO DAILY 04/26/16 [History] Liraglutide [Victoza] 1.8 mg SUBCUT DAILY 04/26/16 [History] Warfarin [Coumadin] 5 mg PO DAILY #30 tablet 06/21/17 [Rx] Acetaminophen/oxyCODONE [Percocet 325-5 MG] 1 each PO Q6H PRN #12 tab 09/04/21 [Rx] Past Medical History HEENT History: Reports: Impaired Vision Other HEENT History: wears glasses, has upper and lower dentures Cardiovascular History: Reports: Afib, CAD, High Cholesterol, Hypertension, FL, Stents Respiratory History: Reports: None Gastrointestinal History: Reports: None Genitourinary History: Reports: None Musculoskeletal History: Reports: Arthritis, Fracture Other Musculoskeletal History: hx of fx in back Neurological History: Reports: None Psychiatric History: Reports: None Endocrine/Metabolic History: Reports: Diabetes, Type II, Obesity/BMI 30+ Hematologic History: Reports: None Immunologic History: Reports: None Oncologic (Cancer) History: Reports: None Dermatologic History: Reports: Cellulitis, Other (See Below) - Infectious Disease History Infectious Disease History: Reports: Chicken Pox, Measles, Mumps - Past Surgical History Head Surgeries/Procedures: Reports: None HEENT Surgical History: Reports: Cataract Surgery Cardiovascular Surgical History: Reports: Coronary Artery Stent Respiratory Surgical History: Reports: None GI Surgical History: Reports: Appendectomy, Hernia, Inguinal Male Surgical History: Reports: Vasectomy Endocrine Surgical History: Reports: None Neurological Surgical History: Reports: None Musculoskeletal Surgical History: Reports: Knee Replacement, Other (See Below) Other Musculoskeletal Surgeries/Procedures:: right shoulder pins; left tka Oncologic Surgical History: Reports: None Dermatological Surgical History: Reports: None Social & Family History - Family History Family Medical History: No Pertinent Family History - Tobacco Use Tobacco Use Status *Q: Former Tobacco User Used Tobacco, but Quit: Yes Month/Year Tobacco Last Used: 2000 - Caffeine Use Caffeine Use: Reports: None - Recreational Drug Use Recreational Drug Use: No - Living Situation & Occupation Living situation: Reports: Occupation: Employed ED ROS GENERAL - Review of Systems Review Of Systems: See Below (see dictation) ED EXAM, GENERAL - Physical Exam Exam: See Below (see dictation) Course - Vital Signs Last Recorded V/S: Last Vital Signs Temp 97.2 F 09/03/21 16:37 Pulse 67 09/04/21 00:00 Resp 18 09/04/21 00:00 BP 134/76 09/04/21 00:00 Pulse Ox 95 09/04/21 00:00 - Orders/Labs/Meds Orders: Active Orders 24 hr Category Date Time Status Scrotal Duplex Ltd [US] Stat Exams 09/03/21 19:47 Taken Dextrose 50% in Water Med 09/03/21 20:20 Active 50 ml IVPUSH ASDIRECTED PRN Glucagon,Human Recombinant [GlucaGen] Med 09/03/21 20:20 Active 1 mg IM ASDIRECTED PRN Medication Orders Dextrose/Water (50% Dextrose In Water 50 Ml Syringe) 50 ml IVPUSH ASDIRECTED PRN PRN Reason: Hypoglycemia Glucagon (Glucagon,Human Recombinant 1 Mg Vial) 1 mg IM ASDIRECTED PRN PRN Reason: Hypoglycemia Labs: Laboratory Tests 09/03/21 09/03/21 09/03/21 Range/Units 19:20 19:20 19:20 WBC 11.05 H (4.0-11.0) K/uL RBC 4.28 L (4.50-5.90) M/uL Hgb 13.5 (13.0-17.0) g/dL Hct 40.4 (38.0-50.0) % MCV 94.4 (80.0-98.0) fL MCH 31.5 (27.0-32.0) pg MCHC 33.4 (31.0-37.0) g/dL RDW Std Deviation 49.6 (28.0-62.0) fl RDW Coeff of Natalie 15 (11.0-15.0) % Plt Count 224 (150-400) K/uL MPV 10.20 (7.40-12.00) fL Neut % (Auto) 75.3 (48.0-80.0) % Lymph % (Auto) 13.7 L (16.0-40.0) % [place] % (Auto) 10.4 (0.0-15.0) % Eos % (Auto) 0.5 (0.0-7.0) % Baso % (Auto) 0.1 (0.0-1.5) % Neut # (Auto) 8.3 H (1.4-5.7) K/uL Lymph # (Auto) 1.5 (0.6-2.4) K/uL [place] # (Auto) 1.2 H (0.0-0.8) K/uL Eos # (Auto) 0.1 (0.0-0.7) K/uL Baso # (Auto) 0.0 (0.0-0.1) K/uL Nucleated RBC % 0.0 /100WBC Nucleated RBCs # 0 K/uL INR Sodium 135 L (136-148) mmol/L Potassium 5.7 H (3.5-5.1) mmol/L Chloride 101 (98-107) mmol/L Carbon Dioxide 26.2 (21.0-32.0) mmol/L BUN 30 H (7.0-18.0) mg/dL Creatinine 1.3 (0.8-1.3) mg/dL Est Cr Clr Drug Dosing 45.32 mL/min Estimated GFR (MDRD) 53.1 ml/min Glucose 316 H (74-106) mg/dL Lactic Acid (0.4-2.0) mmol/L Calcium 8.6 (8.5-10.1) mg/dL Total Bilirubin 1.2 H (0.2-1.0) mg/dL AST 16 (15-37) IU/L ALT 51 (14-63) IU/L Alkaline Phosphatase 67 (46-116) U/L Total Protein 6.7 (6.4-8.2) g/dL Albumin 3.3 L (3.4-5.0) g/dL Globulin 3.4 (2.6-4.0) g/dL Albumin/Globulin Ratio 1.0 (0.9-1.6) Lipase 251 (73-393) U/L Urine Color Urine Appearance Urine pH (5.0-8.0) Ur Specific [place] (1.001-1.035) Urine Protein (NEGATIVE) mg/dL Urine Glucose (UA) (NEGATIVE) mg/dL Urine Ketones (NEGATIVE) mg/dL Urine Occult Blood (NEGATIVE) Urine Nitrite (NEGATIVE) Urine Bilirubin (NEGATIVE) Urine Urobilinogen (<2.0) EU/dL Ur Leukocyte Esterase (NEGATIVE) Influenza Type A RNA NEGATIVE (NEGATIVE) RSV RNA (INAAT) NEGATIVE (NEGATIVE) Influenza Type B RNA NEGATIVE (NEGATIVE) SARS-CoV-2 RNA (ENID) NEGATIVE (NEGATIVE) 09/03/21 09/03/21 09/03/21 Range/Units 19:20 19:55 21:02 WBC (4.0-11.0) K/uL RBC (4.50-5.90) M/uL Hgb (13.0-17.0) g/dL Hct (38.0-50.0) % MCV (80.0-98.0) fL MCH (27.0-32.0) pg MCHC (31.0-37.0) g/dL RDW Std Deviation (28.0-62.0) fl RDW Coeff of Natalie (11.0-15.0) % Plt Count (150-400) K/uL MPV (7.40-12.00) fL Neut % (Auto) (48.0-80.0) % Lymph % (Auto) (16.0-40.0) % [place] % (Auto) (0.0-15.0) % Eos % (Auto) (0.0-7.0) % Baso % (Auto) (0.0-1.5) % Neut # (Auto) (1.4-5.7) K/uL Lymph # (Auto) (0.6-2.4) K/uL [place] # (Auto) (0.0-0.8) K/uL Eos # (Auto) (0.0-0.7) K/uL Baso # (Auto) (0.0-0.1) K/uL Nucleated RBC % /100WBC Nucleated RBCs # K/uL INR 1.01 Sodium (136-148) mmol/L Potassium (3.5-5.1) mmol/L Chloride (98-107) mmol/L Carbon Dioxide (21.0-32.0) mmol/L BUN (7.0-18.0) mg/dL Creatinine (0.8-1.3) mg/dL Est Cr Clr Drug Dosing mL/min Estimated GFR (MDRD) ml/min Glucose (74-106) mg/dL Lactic Acid 1.8 (0.4-2.0) mmol/L Calcium (8.5-10.1) mg/dL Total Bilirubin (0.2-1.0) mg/dL AST (15-37) IU/L ALT (14-63) IU/L Alkaline Phosphatase (46-116) U/L Total Protein (6.4-8.2) g/dL Albumin (3.4-5.0) g/dL Globulin (2.6-4.0) g/dL Albumin/Globulin Ratio (0.9-1.6) Lipase (73-393) U/L Urine Color YELLOW Urine Appearance CLEAR Urine pH 5.5 (5.0-8.0) Ur Specific [place] 1.015 (1.001-1.035) Urine Protein NEGATIVE (NEGATIVE) mg/dL Urine Glucose (UA) >=1000 (NEGATIVE) mg/dL Urine Ketones NEGATIVE (NEGATIVE) mg/dL Urine Occult Blood NEGATIVE (NEGATIVE) Urine Nitrite NEGATIVE (NEGATIVE) Urine Bilirubin NEGATIVE (NEGATIVE) Urine Urobilinogen 0.2 (<2.0) EU/dL Ur Leukocyte Esterase NEGATIVE (NEGATIVE) Influenza Type A RNA (NEGATIVE) RSV RNA (INAAT) (NEGATIVE) Influenza Type B RNA (NEGATIVE) SARS-CoV-2 RNA (ENID) (NEGATIVE) Meds: Medications Generic Name Dose Route Start Last Admin Trade Name Freq PRN Reason Stop Dose Admin Dextrose/Water 50 ml 09/03/21 20:20 50% Dextrose In Water 50 Ml Syringe IVPUSH ASDIRECTED PRN Hypoglycemia Glucagon 1 mg 09/03/21 20:20 Glucagon,Human Recombinant 1 Mg Vial IM ASDIRECTED PRN Hypoglycemia Discontinued Medications Generic Name Dose Route Start Last Admin Trade Name Henna PRN Reason Stop Dose Admin Calcium Gluconate 1 gm 09/03/21 20:20 09/03/21 20:30 Calcium Gluconate 10% 1 Gm/10 Ml Sdv IVPUSH 09/03/21 20:21 1 gm ONETIME ONE Administration Diphenhydramine HCl 50 mg 09/03/21 20:18 09/03/21 20:30 Diphenhydramine 50 Mg/Ml Sdv IVPUSH 09/03/21 20:19 50 mg ONETIME ONE Administration Sodium Chloride 1,000 mls @ 999 mls/hr 09/03/21 20:00 Normal Saline IV .BOLUS CHUY Sodium Chloride 1,000 mls @ 999 mls/hr 09/03/21 20:01 09/03/21 20:03 Normal Saline IV 09/03/21 21:01 999 mls/hr NOW STA Administration Insulin Human Regular 5 unit 09/03/21 20:20 09/03/21 20:30 Insulin Regular, Human 100 Units/Ml 10 Ml Vial IVPUSH 09/03/21 20:21 5 unit ONETIME ONE Administration Protocol Iopamidol 100 ml 09/04/21 01:01 09/04/21 01:02 Iopamidol 755 Mg/Ml 500 Ml Multipack Bottle IVPUSH 09/04/21 01:02 100 ml ONETIME STA Administration Methylprednisolone Sodium Succinate 125 mg 09/03/21 20:18 09/03/21 20:30 Methylprednisolone Sodium Succinate 125 Mg/2 Ml Sdv IVPUSH 09/03/21 20:19 125 mg ONETIME ONE Administration Morphine Sulfate 4 mg 09/03/21 19:47 09/03/21 20:03 Morphine 4 Mg/Ml Vial IVPUSH 09/03/21 19:48 4 mg ONETIME ONE Administration Ondansetron HCl 4 mg 09/03/21 19:47 09/03/21 20:02 Ondansetron 4 Mg/2 Ml Sdv IVPUSH 09/03/21 19:48 4 mg ONETIME ONE Administration - Re-Assessments/Exams Free Text/Narrative Re-Assessment/Exam: 09/04/21 02:26 I reassessed the patient, pain is completely resolved. After prolonged observation in the ER, the patient improved and is currently stable for discharge. He currently has no pain. I performed a repeat exam and did not appreciate new abnormal findings. Patient exhibits normal vital signs and has a normal gait on road test. I advised the patient to return to the ER for reevaluation if symptoms worsened, including fever, worsening pain, or any other worrisome symptoms. I instructed the patient to follow up with Dr. Santa and his PCP within 2-3 days. MEDICAL DECISION MAKING: This patient was evaluated during the COVID-19 pandemic where resources and capacity might be affected. I reviewed the patients past medical records, lab and radiographic findings. I discussed the case with the patient. My differential diagnosis included: Incarcerated hernia, mesh complication, testicular torsion, strangulated hernia, cystitis, UTI, bowel obstruction. Departure - Departure Time of Disposition: 02:27 Disposition: Home, Self-Care 01 Condition: Good Clinical Impression: Right inguinal pain - Discharge Information *PRESCRIPTION DRUG MONITORING PROGRAM REVIEWED*: Not Applicable *COPY OF PRESCRIPTION DRUG MONITORING REPORT IN PATIENT [place]: Not Applicable Prescriptions: Acetaminophen/oxyCODONE [Percocet 325-5 MG] 1 each PO Q6H PRN #12 tab PRN Reason: Pain (Moderate 4-6) Instructions: Abdominal Pain, Adult, [id number] Referrals: Niikta Pandey MD [Primary Care Provider] - 3 Days Faizan Santa MD [Physician] - 3 Days Forms: ED Department Discharge Additional Instructions: The need for follow-up, as well as the timing and circumstances, are variable depending upon the specifics of your emergency department visit. If you don't have a primary care physician on staff, we will provide you with a referral. We always advise you to contact your personal physician following an emergency department visit to inform them of the circumstance of the visit and for follow-up with them and/or the need for any referrals to a consulting specialist. The emergency department will also refer you to a specialist when appropriate. This referral assures that you have the opportunity for follow-up care with a specialist. All of these measure are taken in an effort to provide you with optimal care, which includes your follow-up. Under all circumstances we always encourage you to contact your private physician who remains a resource for coordinating your care. When calling for follow-up care, please make the office aware that this follow-up is from your recent emergency room visit. If for any reason you are refused follow-up, please contact the [facility] Emergency Department at and asked to speak to the emergency department charge nurse. If you do not have a primary care doctor, please follow up with the clinics below within 3-[address] [facility] - Primary Care [address], [place] [address] [facility] [address] [place] [id number] Sepsis Event Note (ED) - Evaluation Sepsis Screening Result: No Definite Risk - Focused Exam Vital Signs: Vital Signs Temp Pulse Resp BP Pulse Ox 09/04/21 00:00 67 18 134/76 95 09/03/21 19:45 80 18 118/79 96 09/03/21 16:37 97.2 F 91 20 137/79 94 L - My Orders Last 24 Hours: My Active Orders 09/03/21 19:47 Scrot[employer]lex [employer] [[place]] Stat 09/03/21 20:20 Dextrose 50% in Water 50 ml IVPUSH ASDIRECTED PRN Glucagon,Human Recombinant [GlucaGen] 1 mg IM ASDIRECTED PRN - Assessment/Plan Last 24 Hours: My Active Orders 09/03/21 19:47 [employer]rot[employer] [[place]] Stat 09/03/21 20:20 Dextrose 50% in Water 50 ml IVPUSH ASDIRECTED PRN Glucagon,Human Recombinant [GlucaGen] 1 mg IM ASDIRECTED PRN
[2021-09-03 19:56] LABS: CARBON DIOXIDE,CO2 26.2 mmol/L (21.0-32.0); POTASSIUM,K 5.7 mmol/L (3.5-5.1)
[2021-09-03] MEDS ORDERED: Sodium Chloride 0.9% 1,000 ML IV SCH (20:00)
[2021-09-03] MEDS ORDERED: Sodium Chloride 0.9% 1,000 ML IV STA (20:01)
[2021-09-03 20:06] LABS: CORONAVIRUS COVID-19 NAA NEGATIVE (NEGATIVE); INFLUENZA A NAA NEGATIVE (NEGATIVE); INFLUENZA B NAA NEGATIVE (NEGATIVE); RESPIRATORY SYNCYTIAL VIR NAA NEGATIVE (NEGATIVE)
[2021-09-03] MEDS ORDERED: diphenhydrAMINE 50 MG/ML SDV IVPUSH ONE (20:18)
[2021-09-03] MEDS ORDERED: methylPREDNISolone Sodium Succinate 125 MG/2 ML SDV IVPUSH ONE (20:18)
[2021-09-03] MEDS ORDERED: Glucagon,Human Recombinant 1 MG Vial IM PRN (20:20)
[2021-09-03] MEDS ORDERED: 50% Dextrose in Water 50 ML Syringe IVPUSH PRN (20:20)
[2021-09-03] MEDS ORDERED: Calcium Gluconate 10% 1 GM/10 ML SDV IVPUSH ONE (20:20)
[2021-09-03] MEDS ORDERED: Insulin Regular, Human 100 Units/ML 10 ML Vial IVPUSH ONE (20:20)
--- NOTE | 2021-09-03 21:58 | US ---
INDICATION: Right scrotal pain. Patient states right testicle has gotten smaller since a hernia repair surgery restricted blood flow. COMPARISON: Scrotal ultrasound 08/29/2016. TECHNIQUE: Feliciano scale imaging was performed of the scrotum. Color Doppler and spectral Doppler analysis was performed of the testes. FINDINGS: Testes: The right testis measures 3.2 x 1.8 x 1.9 cm in size and the left testis measures 3.8 x 2.4 x 2.9 cm. The right testis is again noted to be smaller in size and mildly heterogeneous. There is reduced vascularity in the right testis compared to the left, however there is presence of arterial and venous blood flow throughout the testis. The left testis demonstrates normal arterial and venous blood flow. No suspicious mass or area of inflammation. Epididymis: The right epididymis is normal in appearance. There is a 1.1 cm anechoic cyst and a left epididymal head. No epididymal hypervascularity. Other: No hydrocele or varicocele. IMPRESSION: 1. Stable asymmetric small right testis with reduced vascularity but no evidence of torsion or inflammation. 2. Normal appearance of the left testis. 3. 1.1 cm left epididymal cyst. Dictated by Almaz Astudillo MD @ 09/03/2021 9:58:06 PM (Electronically Signed)
[2021-09-04] MEDS ORDERED: Iopamidol 755 MG/ML 500 ML Multipack Bottle IVPUSH STA (01:01)
--- NOTE | 2021-09-04 01:29 | CT ---
Indication: Right inguinal pain, history of hernia repair Technique: Contrast enhanced axial CT imaging through the abdomen and pelvis. 100 mL Isovue 370 contrast agent was administered intravenously. Sagittal and coronal reconstructions are provided. Comparison: None Findings: No abnormalities are demonstrated relating to the liver, gallbladder, spleen, pancreas, adrenal glands, and kidneys. Two renal cortical cysts are noted on the right. The portal vein is patent. The abdominal aorta is normal in caliber. There is no abdominal or pelvic lymphadenopathy. The urinary bladder is unremarkable. There is no evidence of inguinal hernia. The stomach and duodenum are unremarkable. There is no small bowel wall thickening or abnormal distention. The appendix is nonvisualized. There is no colonic wall thickening or mesenteric edema. There are multilevel degenerative changes of the lumbar spine. 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 Impression: No acute abnormality demonstrated in the abdomen pelvis. No evidence of recurrent right inguinal hernia. Please note that all CT scans at this facility use dose modulation, iterative reconstruction, and/or weight-based dosing when appropriate to reduce radiation dose to as low as reasonably achievable. Dictated by Pily Schaffer MD @ 09/04/2021 1:27:32 AM (Electronically Signed)
[2021-09-04 02:41] VITALS: BP 136/75; PULSE 78
--- NOTE | 2021-09-04 11:05 | US ---
EXAM DATE: 09/03/21 PATIENT'S AGE: 81 Patient: WILFRED HARTMAN Facility: [facility] Site . Site : [id number] Study: US-Testicle -09/03/2021 9:18:35 PM Ordering Physician: Edwardo Portillo Final Report: INDICATION: Right scrotal pain. Patient states right testicle has gotten smaller since a hernia repair surgery restricted blood flow. COMPARISON: Scrotal ultrasound 08/29/2016. TECHNIQUE: Feliciano scale imaging was performed of the scrotum. Color Doppler and spectral Doppler analysis was performed of the testes. FINDINGS: Testes: The right testis measures 3.2 x 1.8 x 1.9 cm in size and the left testis measures 3.8 x 2.4 x 2.9 cm. The right testis is again noted to be smaller in size and mildly heterogeneous. There is reduced vascularity in the right testis compared to the left, however there is presence of arterial and venous blood flow throughout the testis. The left testis demonstrates normal arterial and venous blood flow. No suspicious mass or area of inflammation. Epididymis: The right epididymis is normal in appearance. There is a 1.1 cm anechoic cyst and a left epididymal head. No epididymal hypervascularity. Other: No hydrocele or varicocele. IMPRESSION: 1. Stable asymmetric small right testis with reduced vascularity but no evidence of torsion or inflammation. 2. Normal appearance of the left testis. 3. 1.1 cm left epididymal cyst. Dictated by Almaz Astudillo MD @ 09/03/2021 9:58:06 PM Signed by: Almaz Astudillo MD @09/03/2021 9:58:06 PM (Electronic Signature) Report Signed by Proxy. [email or web address]
== END 2021-09-04 02:35 | disposition home or self-care (01) ==
LOC: MW.ED 16:18
DX: R10.31 Right lower quadrant pain (principal); I48.91 Unspecified atrial fibrillation; I25.10 Atherosclerotic heart disease of native coronary artery without angina pectoris; E11.9 Type 2 diabetes mellitus without complications; I25.2 Old myocardial infarction; I10 Essential (primary) hypertension; E66.9 Obesity, unspecified; Z68.32 Body mass index [BMI] 32.0-32.9, adult; Z95.5 Presence of coronary angioplasty implant and graft; Z88.0 Allergy status to penicillin; Z91.041 Radiographic dye allergy status; Z79.01 Long term (current) use of anticoagulants; Z79.899 Other long term (current) drug therapy; Z87.891 Personal history of nicotine dependence; Z20.822 Contact with and (suspected) exposure to COVID-19
CPT/HCPCS: 0241U; 36415; 74177; 76870; 80053; 81003; 82947; 83605; 83690; 85025; 85610; 93976; 96374; 96375; 99284; J0610; J1200; J2270; J2405; J2930; J7030; Q9967; J1815-GY

== ENCOUNTER 2021-11-20 20:58 | Inpatient (IN) | payer MEDICARE, OTHER ==
[2021-11-20 22:04] LABS: BLOOD UREA NITROGEN,BUN 13 mg/dL (7.0-18.0); CARBON DIOXIDE,CO2 24.8 mmol/L (21.0-32.0); CHLORIDE,CL 102 mmol/L (98-107); POTASSIUM,K 3.7 mmol/L (3.5-5.1); SODIUM,NA 137 mmol/L (136-148)
[2021-11-20 22:17] LABS: GLUCOSE RANDOM 37 mg/dL (74-106)
[2021-11-20] MEDS ORDERED: 50% Dextrose in Water 50 ML Syringe IVPUSH ONE ×2 (22:30→23:35)
[2021-11-20] MEDS ORDERED: Acetaminophen 500 MG Tab PO STA (22:41)
[2021-11-20] MEDS ORDERED: 50% Dextrose in Water 50 ML Syringe ONE (23:26)
[2021-11-20] MEDS ORDERED: Dextrose 5%-Lactated Ringers 1,000 ML IV STA (23:52)
[2021-11-21] MEDS ORDERED: 50% Dextrose in Water 50 ML Syringe IVPUSH PRN (01:50)
[2021-11-21] MEDS ORDERED: Acetaminophen 325 MG Tab PO PRN (01:52)
[2021-11-21] MEDS ORDERED: Rivaroxaban 10 MG Tab PO SCH (09:00)
[2021-11-21] MEDS ORDERED: Metoprolol Tartrate 25 MG Tab PO SCH (09:00)
[2021-11-21] MEDS ORDERED: Magnesium Sulfate/Water 2 GM in Premix Bag 1 BAG IV SCH (10:00)
[2021-11-21 13:34] VITALS: BP 97/48; PULSE 98
== END 2021-11-21 14:00 | disposition home or self-care (01) | DRG 639 ==
LOC: MW.ED 20:58 → MW.MS 23:52
PROVIDERS: ADMIT Internal Medicine; ATTEND Internal Medicine
DX: E11.649 Type 2 diabetes mellitus with hypoglycemia without coma (principal); H54.7 Unspecified visual loss; I25.10 Atherosclerotic heart disease of native coronary artery without angina pectoris; I48.91 Unspecified atrial fibrillation; E78.00 Pure hypercholesterolemia, unspecified; I10 Essential (primary) hypertension; M19.90 Unspecified osteoarthritis, unspecified site; E66.9 Obesity, unspecified; Z96.652 Presence of left artificial knee joint; Z86.19 Personal history of other infectious and parasitic diseases; Z79.84 Long term (current) use of oral hypoglycemic drugs; Z79.82 Long term (current) use of aspirin; Z88.0 Allergy status to penicillin; I25.2 Old myocardial infarction; Z95.5 Presence of coronary angioplasty implant and graft; Z91.041 Radiographic dye allergy status; Z79.899 Other long term (current) drug therapy; Z98.2 Presence of cerebrospinal fluid drainage device; Z79.4 Long term (current) use of insulin; Z79.01 Long term (current) use of anticoagulants; Z98.49 Cataract extraction status, unspecified eye; Z90.49 Acquired absence of other specified parts of digestive tract; Z98.52 Vasectomy status; Z68.32 Body mass index [BMI] 32.0-32.9, adult
CPT/HCPCS: 36415; 71045; 80053; 80061; 81003; 82947 ×3; 83735; 84484; 85025; 93005; A9270; 83036; 96374; 96376; 99285-25; J3475; J7121

== ENCOUNTER 2021-12-21 17:26 | Observation (INO) | payer MEDICARE, OTHER ==
[2021-12-21] MEDS ORDERED: Sodium Chloride 0.9% 2.5 ML Syringe FLUSH PRN (17:28)
[2021-12-21] MEDS ORDERED: Sodium Chloride 0.9% 10 ML Syringe FLUSH PRN (17:28)
[2021-12-21] MEDS ORDERED: Metoprolol Tartrate 5 MG/5 ML SDV IVPUSH ONE ×4 (17:34→18:47)
[2021-12-21] MEDS ORDERED: Sodium Chloride 0.9% 1,000 ML IV ONE (17:43)
[2021-12-21] MEDS ORDERED: Metoprolol Tartrate 5 MG/5 ML SDV ONE ×2 (17:47→17:54)
[2021-12-21] MEDS ORDERED: Metoprolol Tartrate 5 MG in Sodium Chloride 0.9% 50 ML IV ONE ×2 (17:48→17:50)
[2021-12-21] MEDS ORDERED: Morphine 2 MG/ML SYRINGE IVPUSH ONE (18:07)
[2021-12-21] MEDS ORDERED: Ondansetron 4 MG/2 ML SDV IVPUSH ONE (18:07)
[2021-12-21 18:11] LABS: BLOOD UREA NITROGEN,BUN 14 mg/dL (7.0-18.0); CARBON DIOXIDE,CO2 23.7 mmol/L (21.0-32.0); CHLORIDE,CL 101 mmol/L (98-107); GLUCOSE RANDOM 167 mg/dL (74-106); POTASSIUM,K 4.3 mmol/L (3.5-5.1); SODIUM,NA 137 mmol/L (136-148)
[2021-12-21 18:22] LABS: CORONAVIRUS COVID-19 NAA NEGATIVE (NEGATIVE); INFLUENZA A NAA NEGATIVE (NEGATIVE); INFLUENZA B NAA NEGATIVE (NEGATIVE)
[2021-12-21] MEDS ORDERED: Magnesium Sulfate/Water 4 GM in Premix Bag 1 BAG IV ONE (18:32)
[2021-12-21] MEDS ORDERED: Magnesium Sulfate/Water 2 GM in Premix Bag 1 BAG IV ONE (18:33)
[2021-12-21] MEDS ORDERED: Midazolam 1 MG/ML 2 ML SDV ONE ×2 (19:31→19:38)
[2021-12-21] MEDS ORDERED: Midazolam 1 MG/ML 2 ML SDV IVPUSH ONE ×2 (19:59)
[2021-12-21] MEDS ORDERED: metFORMIN 500 MG Tab.ER PO SCH (23:00)
[2021-12-21] MEDS: metFORMIN 500 MG Tab PO SCH (23:38)
[2021-12-22] MEDS ORDERED: 50% Dextrose in Water 50 ML Syringe IVPUSH PRN (00:10)
[2021-12-22] MEDS ORDERED: Glucagon,Human Recombinant 1 MG Vial IM PRN (00:10)
[2021-12-22 06:51] LABS: CARBON DIOXIDE,CO2 25.3 mmol/L (21.0-32.0); POTASSIUM,K 4.7 mmol/L (3.5-5.1)
[2021-12-22] MEDS: Insulin Aspart 100 Units/ML 3 ML Pen SUBCUT SCH ×3 (08:09→17:37)
[2021-12-22] MEDS: Metoprolol Tartrate 25 MG Tab PO SCH ×2 (08:47→21:28)
[2021-12-22] MEDS: Rivaroxaban 10 MG Tab PO SCH (08:47)
[2021-12-22] MEDS: metFORMIN 500 MG Tab PO SCH ×2 (08:48→17:37)
[2021-12-22] MEDS: Omeprazole 20 MG Cap.CR PO SCH (08:48)
[2021-12-22] MEDS: Acetaminophen 325 MG Tab PO PRN ×2 (09:52→21:35)
[2021-12-22] MEDS: Amiodarone 200 MG Tab PO SCH ×2 (13:27→21:27)
[2021-12-22] MEDS ORDERED: atorvaSTATin 40 MG Tab PO SCH (21:00)
[2021-12-23] MEDS: Amiodarone 200 MG Tab PO SCH ×2 (05:30→13:11)
[2021-12-23 06:45] LABS: CARBON DIOXIDE,CO2 26.4 mmol/L (21.0-32.0); POTASSIUM,K 4.6 mmol/L (3.5-5.1)
[2021-12-23] MEDS: Rivaroxaban 10 MG Tab PO SCH (09:15)
[2021-12-23] MEDS: Metoprolol Tartrate 25 MG Tab PO SCH (09:16)
[2021-12-23] MEDS: metFORMIN 500 MG Tab PO SCH (09:16)
[2021-12-23] MEDS: Omeprazole 20 MG Cap.CR PO SCH (09:16)
[2021-12-23 12:00] VITALS: BP 130/69; PULSE 52
[2021-12-23] MEDS: Insulin Aspart 100 Units/ML 3 ML Pen SUBCUT SCH (13:11)
== END 2021-12-23 13:25 | disposition home or self-care (01) ==
LOC: MW.ED 17:26 → MW.MS 20:03
PROVIDERS: ADMIT Internal Medicine; ATTEND Internal Medicine
DX: I48.92 Unspecified atrial flutter (principal); R07.2 Precordial pain; I48.91 Unspecified atrial fibrillation; I25.10 Atherosclerotic heart disease of native coronary artery without angina pectoris; E78.00 Pure hypercholesterolemia, unspecified; I10 Essential (primary) hypertension; I25.2 Old myocardial infarction; E11.9 Type 2 diabetes mellitus without complications; E66.9 Obesity, unspecified; Z20.822 Contact with and (suspected) exposure to COVID-19; Z90.49 Acquired absence of other specified parts of digestive tract; Z88.0 Allergy status to penicillin; Z91.041 Radiographic dye allergy status; Z79.899 Other long term (current) drug therapy; Z98.890 Other specified postprocedural states
CPT/HCPCS: 0240U; 36415; 71045; 80048; 80053; 81003; 82947; 83735; 83880; 84484; 85025; 93005; A9270; J1815; J2250; J2270; J2405; J3475; J3490; J7030; 93010; 99291

== ENCOUNTER 2022-03-02 20:43 | Inpatient (IN) | payer MEDICARE, OTHER ==
[2022-03-02] MEDS ORDERED: Lactated Ringers 1,000 ML IV STA ×2 (20:47→20:49)
[2022-03-02] MEDS ORDERED: Ondansetron 4 MG/2 ML SDV IVPUSH ONE (20:49)
[2022-03-02] MEDS ORDERED: Acetaminophen 500 MG Tab PO ONE (20:49)
[2022-03-02] MEDS ORDERED: Piperacillin/Tazobactam 3.375 GM in Sodium Chloride 0.9% 50 ML IV ONE (21:21)
[2022-03-02] MEDS ORDERED: VANCOmycin 2 GM/400 ML 2 GM in Premix Bag 1 BAG IV ONE (21:30)
[2022-03-02 21:48] LABS: POTASSIUM,K 4.6 mmol/L (3.5-5.1)
[2022-03-02 21:49] LABS: ESTIMATED GFR 30.5 ml/min
[2022-03-02] MEDS ORDERED: Magnesium Sulfate/Water 2 GM in Premix Bag 1 BAG IV ONE (21:51)
[2022-03-02 22:12] LABS: CORONAVIRUS COVID-19 NAA NEGATIVE (NEGATIVE); INFLUENZA A NAA NEGATIVE (NEGATIVE); INFLUENZA B NAA NEGATIVE (NEGATIVE)
[2022-03-03] MEDS ORDERED: 50% Dextrose in Water 50 ML Syringe IVPUSH PRN (00:51)
[2022-03-03] MEDS ORDERED: Glucagon,Human Recombinant 1 MG Vial IM PRN (00:51)
[2022-03-03] MEDS ORDERED: Azithromycin 500 MG Vial IV SCH (01:00)
[2022-03-03] MEDS ORDERED: Amiodarone 200 MG Tab PO SCH (01:00)
[2022-03-03] MEDS: cefTRIAXone 1 GM in Sodium Chloride 0.9% 50 ML IV SCH (01:23)
[2022-03-03] MEDS: Azithromycin 500 MG in Sodium Chloride 0.9% 250 ML IV SCH (01:24)
[2022-03-03] MEDS: Omeprazole 20 MG Cap.CR PO SCH (06:38)
[2022-03-03] MEDS: Insulin Aspart 100 Units/ML 3 ML Pen SUBCUT SCH ×3 (07:15→17:48)
[2022-03-03 07:35] LABS: CARBON DIOXIDE,CO2 25.6 mmol/L (21.0-32.0); POTASSIUM,K 4.4 mmol/L (3.5-5.1)
[2022-03-03 07:37] LABS: ESTIMATED GFR 32.3 ml/min
[2022-03-03] MEDS ORDERED: Rivaroxaban 10 MG Tab PO SCH (09:00)
[2022-03-03] MEDS: Sodium Chloride 0.9% 1,000 ML IV SCH ×2 (13:25→22:18)
[2022-03-03] MEDS ORDERED: atorvaSTATin 40 MG Tab PO SCH (21:00)
[2022-03-03] MEDS ORDERED: Acetaminophen 325 MG Tab PO PRN (23:45)
[2022-03-04] MEDS: cefTRIAXone 1 GM in Sodium Chloride 0.9% 50 ML IV SCH (00:28)
[2022-03-04] MEDS: Azithromycin 500 MG in Sodium Chloride 0.9% 250 ML IV SCH (01:06)
[2022-03-04] MEDS: Omeprazole 20 MG Cap.CR PO SCH (06:37)
[2022-03-04 06:53] LABS: CARBON DIOXIDE,CO2 23.4 mmol/L (21.0-32.0); POTASSIUM,K 4.8 mmol/L (3.5-5.1)
[2022-03-04 06:55] LABS: ESTIMATED GFR 58.3 ml/min
[2022-03-04] MEDS: Insulin Aspart 100 Units/ML 3 ML Pen SUBCUT SCH (07:27)
[2022-03-04 09:27] VITALS: BP 126/48; PULSE 90
[2022-03-04] MEDS ORDERED: Rivaroxaban 10 MG Tab PO SCH (17:30)
== END 2022-03-04 10:20 | disposition home or self-care (01) | DRG 871 ==
LOC: MW.ED 20:43 → MW.MS 22:45
PROVIDERS: ADMIT Internal Medicine; ATTEND Internal Medicine
DX: A41.9 Sepsis, unspecified organism (principal); J96.01 Acute respiratory failure with hypoxia; J18.9 Pneumonia, unspecified organism; N17.9 Acute kidney failure, unspecified; E87.2 Acidosis; I10 Essential (primary) hypertension; R65.20 Severe sepsis without septic shock; Z20.822 Contact with and (suspected) exposure to COVID-19; E11.9 Type 2 diabetes mellitus without complications; Z96.652 Presence of left artificial knee joint; I25.10 Atherosclerotic heart disease of native coronary artery without angina pectoris; E78.00 Pure hypercholesterolemia, unspecified; E66.9 Obesity, unspecified; Z79.84 Long term (current) use of oral hypoglycemic drugs; I48.91 Unspecified atrial fibrillation; E78.5 Hyperlipidemia, unspecified; J96.00 Acute respiratory failure, unspecified whether with hypoxia or hypercapnia; E83.42 Hypomagnesemia; M19.90 Unspecified osteoarthritis, unspecified site; Z68.32 Body mass index [BMI] 32.0-32.9, adult; Z79.82 Long term (current) use of aspirin; I48.92 Unspecified atrial flutter; Z88.0 Allergy status to penicillin; Z79.01 Long term (current) use of anticoagulants; Z90.49 Acquired absence of other specified parts of digestive tract; Z95.5 Presence of coronary angioplasty implant and graft; I25.2 Old myocardial infarction; Z79.899 Other long term (current) drug therapy; Z88.8 Allergy status to other drugs, medicaments and biological substances; Z91.041 Radiographic dye allergy status
CPT/HCPCS: 0240U; 36415; 71045; 80048; 80053; 81003; 82947; 83605; 83735; 84439; 84443; 84484; 85025; 85610; 87040; 93005; 96365; 96375; 99291; 99292; A9270-GY; J0456; J0696; J2405; J2543; J3370; J3475; J7030; J7050; J7120

== ENCOUNTER 2022-09-06 23:14 | Emergency (ER) | payer OTHER ==
[2022-09-06 23:56] LABS: CARBON DIOXIDE,CO2 23.5 mmol/L (21.0-32.0); POTASSIUM,K 4.5 mmol/L (3.5-5.1)
[2022-09-07 01:55] VITALS: BP 111/58; PULSE 88
== END 2022-09-07 01:53 | disposition home or self-care (01) ==
LOC: MW.ED 23:14
DX: R07.9 Chest pain, unspecified (principal); I25.10 Atherosclerotic heart disease of native coronary artery without angina pectoris; E78.00 Pure hypercholesterolemia, unspecified; I10 Essential (primary) hypertension; E11.9 Type 2 diabetes mellitus without complications; E66.9 Obesity, unspecified; Z68.33 Body mass index [BMI] 33.0-33.9, adult; Z91.041 Radiographic dye allergy status; Z88.0 Allergy status to penicillin; Z79.899 Other long term (current) drug therapy; Z79.82 Long term (current) use of aspirin; Z79.84 Long term (current) use of oral hypoglycemic drugs; Z90.49 Acquired absence of other specified parts of digestive tract
CPT/HCPCS: 36415; 80053; 84484; 85025; 93005; 99285

== ENCOUNTER 2023-01-01 08:21 | Inpatient (IN) | payer MEDICARE ==
[~2023-01-01 08:21] MED LIST changes: -Acetaminophen 500 MG Tab PO SCH; +Albuterol 0.083% 2.5 MG/3 ML Neb Soln NEB PRN; +HYDROmorphone 1 MG/ML Syringe IVPUSH PRN; +Lactated Ringers 1,000 ML IV SCH; +Metoclopramide 10 MG/2 ML SDV IVPUSH PRN; +Morphine 2 MG/ML SYRINGE IVPUSH PRN; +Naloxone 0.4 MG/ML SDV IVPUSH PRN; +Ondansetron 4 MG/2 ML SDV IVPUSH PRN; -Ropivacaine 49.25 ML, EPINEPHrine 0.5 MG, cloNIDine 80 MCG in Sodium Chloride 0.9% 48.4... INJECT ONE; -Ropivacaine 49.25 ML, Ketorolac 30 MG, EPINEPHrine 0.5 MG, cloNIDine 80 MCG in Sodium C... INJECT ONE; +Ropivacaine 49.25 ML, Ketorolac 30 MG, EPINEPHrine 0.5 MG, cloNIDine 80 MCG in Sodium C... INJECT SCH; -Scopolamine 1.5 MG Transdermal Patch TRDERM SCH; +Tranexamic Acid 1,000 MG in Sodium Chloride 0.9% 100 ML IV ONE; +droPERidol 5 MG/2 ML SDV IVPUSH PRN; +fentaNYL 50 MCG/ML SDV IVPUSH PRN
[2023-01-01] MEDS ORDERED: Lidocaine 2% 5 ML SDV ONE (08:59)
[2023-01-01] MEDS ORDERED: Ropivacaine 0.5% 5 MG/ML 30 ML SDV ONE (08:59)
[2023-01-01] MEDS ORDERED: Famotidine 20 MG/2 ML SDV ONE (09:02)
[2023-01-01] MEDS ORDERED: Clindamycin Phosphate in D5W 50 ML IV ONE ×2 (09:22→19:36)
[2023-01-01] MEDS ORDERED: propofoL 100 ML ONE (10:49)
[2023-01-01] MEDS ORDERED: Dexmedetomidine 200 MCG/2 ML SDV ONE (11:04)
[2023-01-01] MEDS ORDERED: Ondansetron 4 MG/2 ML SDV ONE (11:04)
[2023-01-01] MEDS ORDERED: Phenylephrine HCl 0.5 MG/5 ML AMP ONE (12:07)
[2023-01-01] MEDS ORDERED: Tranexamic Acid 1,000 MG/10 ML Vial ONE (12:11)
[2023-01-01] MEDS ORDERED: Sodium Chloride 0.9% 10 ML Syringe FLUSH PRN (13:47)
[2023-01-01] MEDS ORDERED: Sodium Chloride 0.9% 2.5 ML Syringe FLUSH PRN (13:47)
[2023-01-01] MEDS ORDERED: traMADol 50 MG Tab PO PRN (13:47)
[2023-01-01] MEDS ORDERED: Aluminum Hydroxide/Magnesium Hydroxide/Simethicone XS Susp 30 ML Cup PO PRN (13:47)
[2023-01-01] MEDS ORDERED: Ondansetron 4 MG/2 ML SDV IVPUSH PRN (13:47)
[2023-01-01] MEDS ORDERED: diphenhydrAMINE 25 MG Cap PO PRN (13:47)
[2023-01-01] MEDS ORDERED: 50% Dextrose in Water 50 ML Syringe IVPUSH PRN (15:36)
[2023-01-01] MEDS ORDERED: Glucagon,Human Recombinant 1 MG Vial IM PRN (15:36)
[2023-01-01 16:00] LABS: CARBON DIOXIDE,CO2 28.5 mmol/L (21.0-32.0); POTASSIUM,K 4.9 mmol/L (3.5-5.1)
[2023-01-01] MEDS ORDERED: Acetaminophen 325 MG Tab PO PRN (17:00)
[2023-01-01] MEDS: Insulin Aspart 100 Units/ML 3 ML Pen SUBCUT SCH (17:07)
[2023-01-01] MEDS: INSULIN LISPRO PROT SUBCUT SCH (17:11)
[2023-01-01] MEDS: LISPRO SUBCUT SCH (17:11)
[2023-01-01] MEDS: traMADol 50 MG Tab PO PRN (18:40)
[2023-01-01] MEDS: Clindamycin Phosphate in D5W 900 MG in Premix Bag 1 BAG IV SCH ×2 (19:52)
[2023-01-01] MEDS ORDERED: Lisinopril 5 MG Tab PO SCH (21:00)
[2023-01-01] MEDS: Metoprolol Tartrate 25 MG Tab PO SCH (21:30)
[2023-01-01] MEDS: Docusate Sodium 100 MG Cap PO SCH (21:32)
[2023-01-01] MEDS: atorvaSTATin 40 MG Tab PO SCH (21:32)
[2023-01-02] MEDS: traMADol 50 MG Tab PO PRN ×2 (02:19→20:29)
[2023-01-02] MEDS ORDERED: Clindamycin Phosphate in D5W 50 ML IV ONE (03:51)
[2023-01-02] MEDS: Clindamycin Phosphate in D5W 900 MG in Premix Bag 1 BAG IV SCH ×2 (04:02)
[2023-01-02] MEDS: HYDROmorphone 1 MG/ML Syringe IVPUSH PRN (05:04)
[2023-01-02 06:02] LABS: CARBON DIOXIDE,CO2 28.5 mmol/L (21.0-32.0); POTASSIUM,K 5.1 mmol/L (3.5-5.1)
[2023-01-02] MEDS: Omeprazole 20 MG Cap.CR PO SCH (06:48)
[2023-01-02] MEDS ORDERED: Lactated Ringers 1,000 ML IV ONE (09:00)
[2023-01-02] MEDS: Insulin Aspart 100 Units/ML 3 ML Pen SUBCUT SCH ×3 (09:03→17:08)
[2023-01-02] MEDS: Acetaminophen 325 MG Tab PO SCH ×4 (09:04→20:28)
[2023-01-02] MEDS: Metoprolol Tartrate 25 MG Tab PO SCH ×2 (09:04→20:49)
[2023-01-02] MEDS: Docusate Sodium 100 MG Cap PO SCH ×2 (09:05→20:49)
[2023-01-02] MEDS: Polyethylene Glycol 3350 Powder 17 GM Packet PO SCH (09:05)
[2023-01-02] MEDS: LISPRO SUBCUT SCH ×2 (09:06→17:09)
[2023-01-02] MEDS: INSULIN LISPRO PROT SUBCUT SCH ×2 (09:06→17:09)
[2023-01-02] MEDS: Rivaroxaban 10 MG Tab PO SCH (17:08)
[2023-01-02] MEDS: atorvaSTATin 40 MG Tab PO SCH (20:28)
[2023-01-03] MEDS: Acetaminophen 325 MG Tab PO SCH ×6 (00:01→20:43)
[2023-01-03] MEDS: traMADol 50 MG Tab PO PRN (02:24)
[2023-01-03] MEDS: HYDROmorphone 1 MG/ML Syringe IVPUSH PRN (05:53)
[2023-01-03] MEDS: Omeprazole 20 MG Cap.CR PO SCH ×2 (05:53→06:34)
[2023-01-03 06:02] LABS: CARBON DIOXIDE,CO2 25.3 mmol/L (21.0-32.0); POTASSIUM,K 4.7 mmol/L (3.5-5.1)
[2023-01-03] MEDS ORDERED: oxyCODONE 5 MG Tab PO PRN (07:59)
[2023-01-03] MEDS: Insulin Aspart 100 Units/ML 3 ML Pen SUBCUT SCH ×3 (08:00→17:02)
[2023-01-03] MEDS ORDERED: Magnesium Sulfate/Water 2 GM in Premix Bag 1 BAG IV ONE (08:13)
[2023-01-03] MEDS: Metoprolol Tartrate 25 MG Tab PO SCH ×2 (08:53→20:41)
[2023-01-03] MEDS: Docusate Sodium 100 MG Cap PO SCH ×2 (09:54→20:25)
[2023-01-03] MEDS: LISPRO SUBCUT SCH (09:54)
[2023-01-03] MEDS: INSULIN LISPRO PROT SUBCUT SCH (09:54)
[2023-01-03] MEDS: Polyethylene Glycol 3350 Powder 17 GM Packet PO SCH (09:55)
[2023-01-03] MEDS ORDERED: Ondansetron 4 MG/2 ML SDV IVPUSH PRN (13:51)
[2023-01-03] MEDS: Clindamycin HCl 150 MG Cap PO SCH (17:03)
[2023-01-03] MEDS: Rivaroxaban 10 MG Tab PO SCH (17:05)
[2023-01-03] MEDS: atorvaSTATin 40 MG Tab PO SCH (20:41)
[2023-01-04] MEDS: Acetaminophen 325 MG Tab PO SCH ×4 (00:03→13:32)
[2023-01-04] MEDS: Clindamycin HCl 150 MG Cap PO SCH ×2 (00:03→08:57)
[2023-01-04] MEDS: Omeprazole 20 MG Cap.CR PO SCH (06:36)
[2023-01-04 07:02] LABS: CARBON DIOXIDE,CO2 26.7 mmol/L (21.0-32.0); POTASSIUM,K 4.6 mmol/L (3.5-5.1)
[2023-01-04] MEDS: Insulin Aspart 100 Units/ML 3 ML Pen SUBCUT SCH ×2 (08:08→11:59)
[2023-01-04] MEDS: Docusate Sodium 100 MG Cap PO SCH (08:57)
[2023-01-04] MEDS: Metoprolol Tartrate 25 MG Tab PO SCH (08:58)
[2023-01-04] MEDS: Polyethylene Glycol 3350 Powder 17 GM Packet PO SCH (08:58)
[2023-01-04 15:17] VITALS: BP 142/75; PULSE 100
== END 2023-01-04 15:10 | disposition home or self-care (01) | DRG 470 ==
LOC: MW.SDS 08:21 → MW.MS 14:51 → OBSVTOIN 01-03 11:37
PROVIDERS: ADMIT Orthopaedic Surgery; ATTEND Orthopaedic Surgery
PROC: 0SRC069 Replacement of Right Knee Joint with Oxidized Zirconium on Polyethylene Synthetic Substitute, Cemented, Open Approach (ICD-10-PCS; principal; 2023-01-01)
DX: M17.11 Unilateral primary osteoarthritis, right knee (principal); J98.11 Atelectasis; N17.9 Acute kidney failure, unspecified; H35.30 Unspecified macular degeneration; I10 Essential (primary) hypertension; E78.00 Pure hypercholesterolemia, unspecified; I25.10 Atherosclerotic heart disease of native coronary artery without angina pectoris; I48.91 Unspecified atrial fibrillation; K21.9 Gastro-esophageal reflux disease without esophagitis; M19.90 Unspecified osteoarthritis, unspecified site; H91.90 Unspecified hearing loss, unspecified ear; M54.9 Dorsalgia, unspecified; E11.9 Type 2 diabetes mellitus without complications; G89.29 Other chronic pain; D64.89 Other specified anemias; G89.18 Other acute postprocedural pain; E66.9 Obesity, unspecified; F03.90 Unspecified dementia, unspecified severity, without behavioral disturbance, psychotic disturbance, mood disturbance, and anxiety; R33.9 Retention of urine, unspecified; Z96.652 Presence of left artificial knee joint; R09.02 Hypoxemia; Z98.49 Cataract extraction status, unspecified eye; Z98.890 Other specified postprocedural states; Z95.5 Presence of coronary angioplasty implant and graft; Z90.49 Acquired absence of other specified parts of digestive tract; Z98.52 Vasectomy status; Z79.4 Long term (current) use of insulin; Z79.899 Other long term (current) drug therapy; Z86.73 Personal history of transient ischemic attack (TIA), and cerebral infarction without residual deficits; Z88.0 Allergy status to penicillin; Z91.041 Radiographic dye allergy status; Z87.891 Personal history of nicotine dependence; Z79.01 Long term (current) use of anticoagulants
CPT/HCPCS: 01402; 36415; 51701; 51798; 64447; 71045; 71045-26; 73560-26-RT; 73560-RT; 80048; 82947; 83735; 85014; 85018; 85025; 86850; 86900; 86901; 97110-GP; 97162-GP; 97530-GP; 99100; A9270-GY; C1776; J0131; J0171; J0735; J1170; J1815-GY; J1885; J2370; J2405; J2704; J2795; J3475; J3490; J7030; J7120

== ENCOUNTER 2023-01-08 18:46 | Inpatient (IN) | payer MEDICARE, OTHER ==
[2023-01-08] MEDS ORDERED: Sodium Chloride 0.9% 10 ML Syringe FLUSH PRN (18:50)
[2023-01-08] MEDS ORDERED: Sodium Chloride 0.9% 2.5 ML Syringe FLUSH PRN (18:50)
[2023-01-08] MEDS ORDERED: Acetaminophen/oxyCODONE 325-10 MG Tab PO STA (19:33)
[2023-01-08] MEDS ORDERED: Morphine 4 MG/ML Syringe IVPUSH STA ×3 (20:31→23:25)
[2023-01-08] MEDS ORDERED: Morphine 4 MG/ML Syringe ONE (20:44)
[2023-01-08 21:03] LABS: CARBON DIOXIDE,CO2 24.9 mmol/L (21.0-32.0); POTASSIUM,K 4.5 mmol/L (3.5-5.1)
[2023-01-08] MEDS ORDERED: Magnesium Sulfate/Water 2 GM in Premix Bag 1 BAG IV STA (21:07)
[2023-01-08] MEDS ORDERED: Magnesium Sulfate/Water 50 ML ONE (21:28)
[2023-01-08] MEDS ORDERED: Polyethylene Glycol 3350 Powder 17 GM Packet PO PRN (23:43)
[2023-01-08] MEDS ORDERED: CLINDAMYCIN HCL 150 MG PO SCH (23:45)
[2023-01-09] MEDS: Acetaminophen 325 MG Tab PO SCH ×7 (01:27→23:56)
[2023-01-09] MEDS: oxyCODONE 5 MG Tab PO PRN ×2 (02:54→07:46)
[2023-01-09] MEDS: Morphine 2 MG/ML SYRINGE IVPUSH PRN ×2 (05:32→22:34)
[2023-01-09] MEDS: Clindamycin HCl 150 MG Cap PO SCH ×3 (06:50→22:35)
[2023-01-09] MEDS: Omeprazole 20 MG Cap.CR PO SCH (06:50)
[2023-01-09 07:45] LABS: CARBON DIOXIDE,CO2 24.7 mmol/L (21.0-32.0); POTASSIUM,K 4.2 mmol/L (3.5-5.1)
[2023-01-09] MEDS: Pioglitazone 15 MG Tab PO SCH (08:39)
[2023-01-09] MEDS: Metoprolol Tartrate 25 MG Tab PO SCH ×2 (08:40→21:38)
[2023-01-09] MEDS ORDERED: LISPRO SQ SCH (09:00)
[2023-01-09] MEDS ORDERED: INSULIN LISPRO PROT SQ SCH (09:00)
[2023-01-09] MEDS ORDERED: Glucagon,Human Recombinant 1 MG Vial IM PRN (15:13)
[2023-01-09] MEDS ORDERED: 50% Dextrose in Water 50 ML Syringe IVPUSH PRN (15:13)
[2023-01-09] MEDS: LISPRO SUBCUT SCH (16:37)
[2023-01-09] MEDS: INSULIN LISPRO PROT SUBCUT SCH (16:37)
[2023-01-09] MEDS ORDERED: Rivaroxaban 10 MG Tab PO SCH (17:30)
[2023-01-09] MEDS ORDERED: Lisinopril 5 MG Tab PO SCH (21:00)
[2023-01-09] MEDS ORDERED: atorvaSTATin 40 MG Tab PO SCH (21:00)
[2023-01-10] MEDS: oxyCODONE 5 MG Tab PO PRN ×2 (01:05→07:51)
[2023-01-10] MEDS: Acetaminophen 325 MG Tab PO SCH ×3 (03:29→11:37)
[2023-01-10] MEDS: Clindamycin HCl 150 MG Cap PO SCH (06:57)
[2023-01-10] MEDS: Omeprazole 20 MG Cap.CR PO SCH (06:57)
[2023-01-10] MEDS: LISPRO SUBCUT SCH (06:59)
[2023-01-10] MEDS: INSULIN LISPRO PROT SUBCUT SCH (06:59)
[2023-01-10 08:53] LABS: CARBON DIOXIDE,CO2 25.1 mmol/L (21.0-32.0); POTASSIUM,K 4.4 mmol/L (3.5-5.1)
[2023-01-10] MEDS: Pioglitazone 15 MG Tab PO SCH (09:31)
[2023-01-10] MEDS: Metoprolol Tartrate 25 MG Tab PO SCH (09:31)
[2023-01-10] MEDS ORDERED: Insulin Aspart 100 Units/ML 3 ML Pen SUBCUT SCH (11:30)
[2023-01-10 11:47] VITALS: BP 112/61; PULSE 86
== END 2023-01-10 12:30 | disposition home health service (06) | DRG 556 ==
LOC: MW.ED 18:46 → OBSVTOIN 23:41 → MW.MS 23:41
PROVIDERS: ADMIT Internal Medicine; ATTEND Internal Medicine
PROC: 05HB33Z Insertion of Infusion Device into Right Basilic Vein, Percutaneous Approach (ICD-10-PCS; principal; 2023-01-08)
PROC: B54MZZA Ultrasonography of Right Upper Extremity Veins, Guidance (ICD-10-PCS; 2023-01-08)
DX: M25.561 Pain in right knee (principal); E78.5 Hyperlipidemia, unspecified; E11.9 Type 2 diabetes mellitus without complications; I25.10 Atherosclerotic heart disease of native coronary artery without angina pectoris; H91.90 Unspecified hearing loss, unspecified ear; H35.30 Unspecified macular degeneration; I48.91 Unspecified atrial fibrillation; I10 Essential (primary) hypertension; E78.00 Pure hypercholesterolemia, unspecified; K21.9 Gastro-esophageal reflux disease without esophagitis; M19.90 Unspecified osteoarthritis, unspecified site; G89.29 Other chronic pain; M54.9 Dorsalgia, unspecified; Z96.653 Presence of artificial knee joint, bilateral; D63.8 Anemia in other chronic diseases classified elsewhere; E66.9 Obesity, unspecified; Z98.49 Cataract extraction status, unspecified eye; Z90.49 Acquired absence of other specified parts of digestive tract; Z98.52 Vasectomy status; Z95.5 Presence of coronary angioplasty implant and graft; Z68.34 Body mass index [BMI] 34.0-34.9, adult; Z98.890 Other specified postprocedural states; Z79.4 Long term (current) use of insulin; Z79.899 Other long term (current) drug therapy; Z88.0 Allergy status to penicillin; Z91.041 Radiographic dye allergy status
CPT/HCPCS: 36410; 36415; 51798; 80048; 80053; 81001; 82728; 82947; 83550; 83605; 83735; 84484; 85025; 93005; 93010; 93971-26-RT; 93971-RT; 96365; 96375; 96376; 97110-GP; 97116-GP; 97161-GP; 97530-GP; 99024; 99100; 99221; 99238; 99285; 99285-25; A9270-GY; G0378; J2270; J3475; J3490

== ENCOUNTER 2023-03-25 22:05 | Emergency (ER) | payer MEDICARE ==
[2023-03-25] MEDS ORDERED: Sodium Chloride 0.9% 10 ML Syringe FLUSH PRN (22:20)
[2023-03-25] MEDS ORDERED: Nitroglycerin 0.4 MG Tab.SL SL PRN (22:20)
[2023-03-25] MEDS ORDERED: Sodium Chloride 0.9% 2.5 ML Syringe FLUSH PRN (22:20)
[2023-03-25 22:43] LABS: BASOPHILS PERCENT AUTO 0.1 % (0.0-1.5); HEMATOCRIT 29.6 % (38.0-50.0); HEMOGLOBIN 9.4 g/dL (13.0-17.0); LYMPHOCYTES PERCENT AUTO 8.2 % (16.0-40.0); MEAN CORPUSCULAR HEMOGLOBIN 28.2 pg (27.0-32.0); MEAN CORPUSCULAR HGB CONC 31.8 g/dL (31.0-37.0); MEAN CORPUSCULAR VOLUME 88.9 fL (80.0-98.0); MONOCYTES ABSOLUTE AUTO 1.8 K/uL (0.0-0.8); MONOCYTES PERCENT AUTO 15.3 % (0.0-15.0); NEUTROPHILS ABSOLUTE AUTO 8.9 K/uL (1.4-5.7); NEUTROPHILS PERCENT AUTO 76.4 % (48.0-80.0); NRBC ABSOLUTE 0 K/uL; PLATELET COUNT,PLT 261 K/uL (150-400); RED BLOOD CELL COUNT 3.33 M/uL (4.50-5.90); WHITE BLOOD CELL COUNT,WBC 11.64 K/uL (4.0-11.0)
[2023-03-25 22:55] LABS: INR 1.33 (0.86-1.11); PTT,PARTIAL THROMBOPLSTIN TIME 31.9 SEC (23.9-30.7)
[2023-03-25 23:10] LABS: ALBUMIN 3.4 g/dL (3.4-5.0); BILIRUBIN TOTAL 0.4 mg/dL (0.2-1.0); CALCIUM 8.8 mg/dL (8.5-10.1); CARBON DIOXIDE,CO2 23.6 mmol/L (21.0-32.0); CREATININE 1.5 mg/dL (0.8-1.3); EST CRCL DRUG DOSING (CG) 38.62 mL/min; MAGNESIUM 1.6 mg/dL (1.8-2.4); POTASSIUM,K 4.4 mmol/L (3.5-5.1); PROTEIN TOTAL,TP 6.7 g/dL (6.4-8.2)
[2023-03-25] MEDS ORDERED: Aluminum Hydroxide/Magnesium Hydroxide/Simethicone XS Susp 30 ML Cup PO ONE (23:16)
[2023-03-26] MEDS ORDERED: Magnesium Sulfate (4.06 MEQ/ML) 5 GM/10 ML SDV IV STA (00:55)
[2023-03-26] MEDS ORDERED: Naloxone 0.4 MG/ML SDV IVPUSH PRN (00:55)
[2023-03-26] MEDS ORDERED: Morphine 2 MG/ML SYRINGE IVPUSH ONE (00:55)
[2023-03-26] MEDS ORDERED: Magnesium Sulfate/Water 2 GM in Premix Bag 1 BAG IV ONE (01:26)
[2023-03-26] MEDS ORDERED: Metoprolol Tartrate 2.5 MG in Sodium Chloride 0.9% 50 ML IV ONE (02:01)
[2023-03-26] MEDS ORDERED: Metoprolol Tartrate 5 MG/5 ML SDV IVPUSH ONE (02:29)
[2023-03-26] MEDS ORDERED: Albuterol/Ipratropium 3.0-0.5 MG/3 ML Neb Soln NEB ONE (05:01)
[2023-03-26 05:56] LABS: CALCIUM 8.9 mg/dL (8.5-10.1); CREATININE 1.3 mg/dL (0.8-1.3); EST CRCL DRUG DOSING (CG) 44.57 mL/min; MAGNESIUM 2.2 mg/dL (1.8-2.4); POTASSIUM,K 4.7 mmol/L (3.5-5.1)
[2023-03-26 07:56] VITALS: BP 123/73; PULSE 102
== END 2023-03-26 08:19 ==
LOC: MW.ED 22:05
DX: E83.42 Hypomagnesemia (principal); I25.10 Atherosclerotic heart disease of native coronary artery without angina pectoris; I48.91 Unspecified atrial fibrillation; I10 Essential (primary) hypertension; K21.9 Gastro-esophageal reflux disease without esophagitis; E11.9 Type 2 diabetes mellitus without complications; E66.9 Obesity, unspecified; Z79.899 Other long term (current) drug therapy; Z91.040 Latex allergy status; Z88.0 Allergy status to penicillin; Z95.5 Presence of coronary angioplasty implant and graft; Z79.4 Long term (current) use of insulin; Z79.01 Long term (current) use of anticoagulants
CPT/HCPCS: 36415; 70450; 71045; 80048; 80053; 82947; 83735; 84484; 85025; 85610; 85730; 86850; 86900; 86901; 93005; 96365; 96375; 99285; A9270; J3475; J3490; 93010; J7620-GY

== ENCOUNTER 2023-04-30 21:26 | Inpatient (IN) | payer MEDICARE ==
[2023-04-30] MEDS ORDERED: Sodium Chloride 0.9% 2.5 ML Syringe FLUSH PRN (21:43)
[2023-04-30] MEDS ORDERED: Sodium Chloride 0.9% 10 ML Syringe FLUSH PRN (21:43)
[2023-04-30 21:51] LABS: BASOPHILS ABSOLUTE AUTO 0.1 K/uL (0.0-0.1); BASOPHILS PERCENT AUTO 0.7 % (0.0-1.5); EOSINOPHILS ABSOLUTE AUTO 0.3 K/uL (0.0-0.7); EOSINOPHILS PERCENT AUTO 4.2 % (0.0-7.0); HEMOGLOBIN 10.7 g/dL (13.0-17.0); LYMPHOCYTES ABSOLUTE AUTO 1.7 K/uL (0.6-2.4); MEAN CORPUSCULAR HEMOGLOBIN 28.7 pg (27.0-32.0); MEAN CORPUSCULAR HGB CONC 31.5 g/dL (31.0-37.0); MEAN CORPUSCULAR VOLUME 91.2 fL (80.0-98.0); MONOCYTES ABSOLUTE AUTO 0.7 K/uL (0.0-0.8); MONOCYTES PERCENT AUTO 9.4 % (0.0-15.0); NEUTROPHILS ABSOLUTE AUTO 4.7 K/uL (1.4-5.7); NEUTROPHILS PERCENT AUTO 62.7 % (48.0-80.0); NRBC ABSOLUTE 0 K/uL; PLATELET COUNT,PLT 229 K/uL (150-400); RED BLOOD CELL COUNT 3.73 M/uL (4.50-5.90); WHITE BLOOD CELL COUNT,WBC 7.43 K/uL (4.0-11.0)
[2023-04-30 21:59] LABS: INR 1.43 (0.86-1.11)
[2023-04-30 22:16] LABS: ALBUMIN 3.4 g/dL (3.4-5.0); BILIRUBIN TOTAL 0.9 mg/dL (0.2-1.0); CALCIUM 8.8 mg/dL (8.5-10.1); CARBON DIOXIDE,CO2 27.3 mmol/L (21.0-32.0); CREATININE 1.3 mg/dL (0.8-1.3); EST CRCL DRUG DOSING (CG) 39.53 mL/min; POTASSIUM,K 3.9 mmol/L (3.5-5.1); PROTEIN TOTAL,TP 6.8 g/dL (6.4-8.2)
[2023-05-01] MEDS ORDERED: Furosemide 40 MG/4 ML VIAL IVPUSH ONE ×2 (00:24→08:07)
[2023-05-01] MEDS ORDERED: Acetaminophen 325 MG Tab PO PRN (08:01)
[2023-05-01] MEDS ORDERED: Polyethylene Glycol 3350 Powder 17 GM Packet PO PRN (08:01)
[2023-05-01] MEDS ORDERED: Ondansetron 4 MG/2 ML SDV IVPUSH PRN (08:01)
[2023-05-01] MEDS ORDERED: Docusate Sodium 100 MG Cap PO PRN (08:01)
[2023-05-01] MEDS ORDERED: 50% Dextrose in Water 50 ML Syringe IVPUSH PRN (08:09)
[2023-05-01] MEDS ORDERED: Glucagon,Human Recombinant 1 MG Vial IM PRN (08:09)
[2023-05-01 08:28] LABS: BASOPHILS PERCENT AUTO 0.4 % (0.0-1.5); EOSINOPHILS ABSOLUTE AUTO 0.3 K/uL (0.0-0.7); EOSINOPHILS PERCENT AUTO 4.5 % (0.0-7.0); HEMATOCRIT 35.7 % (38.0-50.0); HEMOGLOBIN 11.4 g/dL (13.0-17.0); LYMPHOCYTES ABSOLUTE AUTO 1.2 K/uL (0.6-2.4); LYMPHOCYTES PERCENT AUTO 16.4 % (16.0-40.0); MEAN CORPUSCULAR HEMOGLOBIN 28.9 pg (27.0-32.0); MEAN CORPUSCULAR HGB CONC 31.9 g/dL (31.0-37.0); MEAN CORPUSCULAR VOLUME 90.4 fL (80.0-98.0); MONOCYTES PERCENT AUTO 13.2 % (0.0-15.0); NEUTROPHILS ABSOLUTE AUTO 4.8 K/uL (1.4-5.7); NEUTROPHILS PERCENT AUTO 65.5 % (48.0-80.0); NRBC ABSOLUTE 0 K/uL; PLATELET COUNT,PLT 235 K/uL (150-400); RED BLOOD CELL COUNT 3.95 M/uL (4.50-5.90); WHITE BLOOD CELL COUNT,WBC 7.27 K/uL (4.0-11.0)
[2023-05-01] MEDS: Insulin Aspart 100 Units/ML 3 ML Pen SUBCUT SCH ×3 (08:58→17:10)
[2023-05-01 08:59] LABS: CALCIUM 9.3 mg/dL (8.5-10.1); CARBON DIOXIDE,CO2 29.7 mmol/L (21.0-32.0); CREATININE 1.2 mg/dL (0.8-1.3); EST CRCL DRUG DOSING (CG) 42.83 mL/min; MAGNESIUM 1.3 mg/dL (1.8-2.4); PHOSPHORUS 4.9 mg/dL (2.6-4.7)
[2023-05-01] MEDS: Iron Polysaccharides Complex 150 MG Cap PO SCH (09:11)
[2023-05-01] MEDS: Rivaroxaban 10 MG Tab PO SCH (09:12)
[2023-05-01] MEDS: Metoprolol Tartrate 25 MG Tab PO SCH ×2 (09:18→20:45)
[2023-05-01] MEDS ORDERED: Magnesium Sulfate/Water 4 GM in Premix Bag 1 BAG IV ONE (09:47)
[2023-05-01] MEDS: Omeprazole 20 MG Cap.CR PO SCH (11:31)
[2023-05-01] MEDS: Lisinopril 5 MG Tab PO SCH (20:46)
[2023-05-01] MEDS: atorvaSTATin 40 MG Tab PO SCH (20:46)
[2023-05-02] MEDS: Omeprazole 20 MG Cap.CR PO SCH ×2 (06:26→07:23)
[2023-05-02] MEDS: Insulin Aspart 100 Units/ML 3 ML Pen SUBCUT SCH ×3 (06:30→16:45)
[2023-05-02 08:07] LABS: HEMATOCRIT 37.7 % (38.0-50.0); HEMOGLOBIN 12.1 g/dL (13.0-17.0); MEAN CORPUSCULAR HGB CONC 32.1 g/dL (31.0-37.0); MEAN CORPUSCULAR VOLUME 90.4 fL (80.0-98.0); MEAN PLATELET VOLUME 8.9 fL (7.40-12.00); RED BLOOD CELL COUNT 4.17 M/uL (4.50-5.90); WHITE BLOOD CELL COUNT,WBC 7.8 K/uL (4.0-11.0)
[2023-05-02] MEDS: Iron Polysaccharides Complex 150 MG Cap PO SCH (08:21)
[2023-05-02] MEDS: Rivaroxaban 10 MG Tab PO SCH (08:21)
[2023-05-02] MEDS: Metoprolol Tartrate 25 MG Tab PO SCH ×2 (08:21→21:24)
[2023-05-02 08:26] LABS: CARBON DIOXIDE,CO2 30.3 mmol/L (21.0-32.0); CREATININE 1.2 mg/dL (0.8-1.3); EST CRCL DRUG DOSING (CG) 42.83 mL/min; POTASSIUM,K 4.4 mmol/L (3.5-5.1)
[2023-05-02] MEDS: Furosemide 20 MG Tab PO SCH (09:49)
[2023-05-02] MEDS: atorvaSTATin 40 MG Tab PO SCH (21:23)
[2023-05-02] MEDS: Lisinopril 5 MG Tab PO SCH (21:23)
[2023-05-03 05:56] LABS: BASOPHILS PERCENT AUTO 0.4 % (0.0-1.5); EOSINOPHILS ABSOLUTE AUTO 0.5 K/uL (0.0-0.7); EOSINOPHILS PERCENT AUTO 5.5 % (0.0-7.0); HEMATOCRIT 35.3 % (38.0-50.0); HEMOGLOBIN 11.4 g/dL (13.0-17.0); LYMPHOCYTES ABSOLUTE AUTO 1.5 K/uL (0.6-2.4); LYMPHOCYTES PERCENT AUTO 18.4 % (16.0-40.0); MEAN CORPUSCULAR HEMOGLOBIN 28.9 pg (27.0-32.0); MEAN CORPUSCULAR HGB CONC 32.3 g/dL (31.0-37.0); MEAN CORPUSCULAR VOLUME 89.4 fL (80.0-98.0); MONOCYTES ABSOLUTE AUTO 1.2 K/uL (0.0-0.8); MONOCYTES PERCENT AUTO 14.7 % (0.0-15.0); NEUTROPHILS ABSOLUTE AUTO 5.1 K/uL (1.4-5.7); NRBC ABSOLUTE 0 K/uL; PLATELET COUNT,PLT 241 K/uL (150-400); RED BLOOD CELL COUNT 3.95 M/uL (4.50-5.90); WHITE BLOOD CELL COUNT,WBC 8.35 K/uL (4.0-11.0)
[2023-05-03] MEDS: Omeprazole 20 MG Cap.CR PO SCH ×2 (06:21→06:30)
[2023-05-03 06:28] LABS: CALCIUM 8.8 mg/dL (8.5-10.1); CARBON DIOXIDE,CO2 30.5 mmol/L (21.0-32.0); CREATININE 1.2 mg/dL (0.8-1.3); EST CRCL DRUG DOSING (CG) 42.83 mL/min; MAGNESIUM 1.9 mg/dL (1.8-2.4); POTASSIUM,K 4.6 mmol/L (3.5-5.1)
[2023-05-03] MEDS: Insulin Aspart 100 Units/ML 3 ML Pen SUBCUT SCH (06:29)
[2023-05-03] MEDS: Rivaroxaban 10 MG Tab PO SCH (08:44)
[2023-05-03] MEDS: Furosemide 20 MG Tab PO SCH (08:44)
[2023-05-03] MEDS: Iron Polysaccharides Complex 150 MG Cap PO SCH (08:44)
[2023-05-03] MEDS: Metoprolol Tartrate 25 MG Tab PO SCH (08:46)
[2023-05-03 08:47] VITALS: PULSE 79
[2023-05-03 10:15] VITALS: BP 116/49
== END 2023-05-03 11:20 | disposition home or self-care (01) | DRG 307 ==
LOC: MW.ED 21:26 → MW.MS 05-01 01:51
PROVIDERS: ADMIT Internal Medicine; ATTEND Internal Medicine
DX: I35.0 Nonrheumatic aortic (valve) stenosis (principal); R06.02 Shortness of breath; R07.9 Chest pain, unspecified; I11.0 Hypertensive heart disease with heart failure; I50.9 Heart failure, unspecified; E78.2 Mixed hyperlipidemia; Z96.659 Presence of unspecified artificial knee joint; I48.0 Paroxysmal atrial fibrillation; I48.91 Unspecified atrial fibrillation; I44.7 Left bundle-branch block, unspecified; E11.9 Type 2 diabetes mellitus without complications; M19.90 Unspecified osteoarthritis, unspecified site; Z88.0 Allergy status to penicillin; Z91.041 Radiographic dye allergy status; I25.10 Atherosclerotic heart disease of native coronary artery without angina pectoris; E78.00 Pure hypercholesterolemia, unspecified; K21.9 Gastro-esophageal reflux disease without esophagitis; Z97.3 Presence of spectacles and contact lenses; Z87.01 Personal history of pneumonia (recurrent); Z98.52 Vasectomy status; Z90.49 Acquired absence of other specified parts of digestive tract; E66.9 Obesity, unspecified; Z98.49 Cataract extraction status, unspecified eye; Z98.890 Other specified postprocedural states; Z99.81 Dependence on supplemental oxygen; Z68.37 Body mass index [BMI] 37.0-37.9, adult; Z79.4 Long term (current) use of insulin; Z79.01 Long term (current) use of anticoagulants; Z79.899 Other long term (current) drug therapy; Z95.5 Presence of coronary angioplasty implant and graft
CPT/HCPCS: 36415 ×2; 71045; 80053; 83690; 83880; 84484 ×2; 85025; 85610; 93005; 96374; 99285; J1940; J3490; 80048; 83735; 84100; 85027; 93010; 99223; 99232; 99238; A9270-GY; J1815-GY; J3475